=== PATIENT | female | born 1955 | race Caucasian/White ===

== ENCOUNTER 2021-02-16 12:48 | Outpatient (REF) | payer MEDICARE, MEDICAID, SELFPAY ==
--- NOTE | ~2021-02-16 | XR_ITS ---
EXAMINATION: BILATERAL ANKLE X-RAY CLINICAL INFORMATION: Pain COMPARISON: None TECHNIQUE: 3 views of each ankle FINDINGS: Right: Bone alignment is normal. No fracture or dislocation is seen. The ankle mortise is normal. There is a small plantar calcaneal spur. There are soft tissue vascular calcifications. Left: Bone alignment is normal. No fracture or dislocation is seen. The ankle mortise is normal. There are calcaneal spurs. There are degenerative changes of the midfoot. XR/XR ankle LT 2V IMPRESSION: Right: Plantar calcaneal spur. Left: Calcaneal spurs and degenerative changes of the midfoot.
--- NOTE | ~2021-02-16 | XR_ITS ---
EXAMINATION: BILATERAL ANKLE X-RAY CLINICAL INFORMATION: Pain COMPARISON: None TECHNIQUE: 3 views of each ankle FINDINGS: Right: Bone alignment is normal. No fracture or dislocation is seen. The ankle mortise is normal. There is a small plantar calcaneal spur. There are soft tissue vascular calcifications. Left: Bone alignment is normal. No fracture or dislocation is seen. The ankle mortise is normal. There are calcaneal spurs. There are degenerative changes of the midfoot. XR/XR ankle RT 2V IMPRESSION: Right: Plantar calcaneal spur. Left: Calcaneal spurs and degenerative changes of the midfoot.
== END 2021-02-16 12:49 | disposition home or self-care (01) ==
LOC: HO.XRAY 12:48
PROVIDERS: PCP Family Medicine; Visit Provider Student in an Organized Health Care Education/Training Program
DX: M25.571 Pain in right ankle and joints of right foot (principal); M25.572 Pain in left ankle and joints of left foot
CPT/HCPCS: 73600; 99212

== ENCOUNTER 2021-06-13 12:49 | Outpatient (RCR) | payer MEDICARE, MEDICAID, SELFPAY | END 2021-11-07 09:26 | disposition home or self-care (01) | LOC: HO.WCC 12:49 | PROVIDERS: PCP Family Medicine; Visit Provider Physician Assistant | DX: E11.622 Type 2 diabetes mellitus with other skin ulcer (principal); L98.492 Non-pressure chronic ulcer of skin of other sites with fat layer exposed | CPT/HCPCS: 17250; 99212; 99213; 99214 ==

== ENCOUNTER → 2022-02-08 10:58 | Outpatient (BNVA) | payer MEDICARE, MEDICAID, SELFPAY | PROVIDERS: PCP Family Medicine; Visit Provider Nurse Practitioner Family | DX: M25.571 Pain in right ankle and joints of right foot (principal); M25.572 Pain in left ankle and joints of left foot; M79.671 Pain in right foot; M79.672 Pain in left foot | CPT/HCPCS: 99212 ==

== ENCOUNTER 2022-06-28 08:08 | Outpatient (RCR) | payer MEDICARE, MEDICAID, SELFPAY ==
--- NOTE | ~2022-06-28 | XR_ITS ---
EXAMINATION: XR FOOT, LEFT CLINICAL INFORMATION: Question osteomyelitis of the 3rd toe. COMPARISON: None. TECHNIQUE: AP, lateral, and oblique views of the left foot. FINDINGS: There is moderate size calcaneal heel enthesophyte. The ankle mortise and subtalar joints are normal. No visible acute fracture or dislocation. There is no periosteal elevation or thickening. No soft tissue gas seen in the 3rd toe. XR/XR foot LT min 3V IMPRESSION: 1. Moderate size calcaneal heel enthesophyte. No visible acute fracture, dislocation or subluxation seen. 2. There is no soft tissue gas seen in the 3rd toe.
== END 2022-10-06 08:00 | disposition home or self-care (01) ==
LOC: HO.WCC 08:08
PROVIDERS: PCP Family Medicine; Visit Provider Surgery
DX: E11.621 Type 2 diabetes mellitus with foot ulcer (principal); L97.522 Non-pressure chronic ulcer of other part of left foot with fat layer exposed; E11.69 Type 2 diabetes mellitus with other specified complication; M86.072 Acute hematogenous osteomyelitis, left ankle and foot; E11.22 Type 2 diabetes mellitus with diabetic chronic kidney disease; I13.0 Hypertensive heart and chronic kidney disease with heart failure and stage 1 through stage 4 chronic kidney disease, or unspecified chronic kidney disease; N18.30 Chronic kidney disease, stage 3 unspecified; I50.9 Heart failure, unspecified; E11.51 Type 2 diabetes mellitus with diabetic peripheral angiopathy without gangrene; L53.9 Erythematous condition, unspecified; Z79.4 Long term (current) use of insulin; Z79.01 Long term (current) use of anticoagulants; Z79.2 Long term (current) use of antibiotics; Z79.899 Other long term (current) drug therapy; Z86.718 Personal history of other venous thrombosis and embolism; Z89.422 Acquired absence of other left toe(s)
CPT/HCPCS: 11042; 73630

== ENCOUNTER 2022-08-01 14:00 | Outpatient (REF) | payer MEDICARE, MEDICAID, SELFPAY ==
--- NOTE | ~2022-08-01 | MR_ITS ---
EXAMINATION: MR FOOT WITHOUT AND WITH CONTRAST, LEFT CLINICAL INFORMATION: Nonhealing wound on the left 3rd toe. COMPARISON: Left foot radiographs dated 07/19/2022. TECHNIQUE: Multisequence MR imaging of the left foot was obtained before and after the IV administration of 10 mL Gadavist contrast on a high-field strength scanner. FINDINGS: There is soft tissue ulceration at the distal aspect of the 3rd toe with adjacent skin thickening, subcutaneous edema, and enhancement, consistent with cellulitis. No organized fluid collection/abscess formation. Within the adjacent 3rd distal phalanx, there is increased T2 and decreased T1 signal with postcontrast marrow enhancement, consistent with acute osteomyelitis. No stress reaction, fracture, or avascular necrosis. Articular cartilage thinning with marginal osteophytes at the 1st metatarsophalangeal joint and hallux sesamoids. Articular cartilage loss with subchondral cystic change and marginal osteophytes at the tarsometatarsal joints. Edema and atrophy within the intrinsic musculature of the foot which can be seen in diabetic patients. The flexor and extensor tendons are intact. The Lisfranc ligament is intact. Dorsal subcutaneous edema. MR/MR foot LT wo/w con IMPRESSION: 1. Soft tissue ulceration and cellulitis at the distal aspect of the 3rd toe with acute osteomyelitis within the adjacent 3rd distal phalanx. No associated abscess formation. 2. Mild osteoarthritis at the 1st metatarsophalangeal joint and hallux sesamoids as well as more moderate osteoarthritis at the tarsometatarsal joints. 3. Edema and atrophy within the intrinsic musculature of the foot which can be seen in diabetic patients.
== END 2022-08-01 14:01 | disposition home or self-care (01) ==
LOC: HO.MRI 14:00
PROVIDERS: Visit Provider Surgery
DX: E11.621 Type 2 diabetes mellitus with foot ulcer (principal); L97.522 Non-pressure chronic ulcer of other part of left foot with fat layer exposed
CPT/HCPCS: 73720; A9585

== ENCOUNTER 2023-03-07 12:45 | Outpatient (RCR) | payer MEDICARE, MEDICAID, SELFPAY ==
--- NOTE | ~2023-03-07 | XR_ITS ---
EXAMINATION: XR FOOT, LEFT CLINICAL INFORMATION: Question osteomyelitis COMPARISON: 04/10/2023 x-ray, 08/01/2022 MRI. TECHNIQUE: AP, lateral, and oblique views of the left foot. FINDINGS: Redemonstration of amputation at the level of the third proximal phalanx mid diaphysis. Plantar calcaneal spur. Advanced degenerative changes most notable in the 1st metatarsophalangeal joint. The 2nd, 4th and 5th toes are flexed, limiting evaluation. XR/XR foot LT min 3V IMPRESSION: Redemonstration of amputation at the level of the third proximal phalanx mid diaphysis. CT scan should be considered for further evaluation if there is clinical concern for osteomyelitis.
== END 2023-07-17 17:00 | disposition home or self-care (01) ==
LOC: HO.WCC 12:45
PROVIDERS: PCP Family Medicine; Visit Provider Physician Assistant
DX: E11.621 Type 2 diabetes mellitus with foot ulcer (principal); L97.522 Non-pressure chronic ulcer of other part of left foot with fat layer exposed; E11.51 Type 2 diabetes mellitus with diabetic peripheral angiopathy without gangrene; E11.69 Type 2 diabetes mellitus with other specified complication; M86.472 Chronic osteomyelitis with draining sinus, left ankle and foot; E11.40 Type 2 diabetes mellitus with diabetic neuropathy, unspecified; E11.22 Type 2 diabetes mellitus with diabetic chronic kidney disease; I12.9 Hypertensive chronic kidney disease with stage 1 through stage 4 chronic kidney disease, or unspecified chronic kidney disease; N18.30 Chronic kidney disease, stage 3 unspecified; Z79.4 Long term (current) use of insulin; Z79.2 Long term (current) use of antibiotics; Z95.0 Presence of cardiac pacemaker; Z89.421 Acquired absence of other right toe(s); Z86.718 Personal history of other venous thrombosis and embolism
CPT/HCPCS: 11042; 11044; 73630; 87070; 87073; 87205; 97597; 99212

== ENCOUNTER 2023-03-19 08:30 | Outpatient (AMB) | payer MEDICARE, MEDICAID, SELFPAY ==
--- NOTE | 2023-03-19 08:33 | A.OFFVIS_ITS ---
Intake Vital Signs 03/19/23 08:34 Height 5 ft 9 in Weight 261 lb 7.492 oz BMI 38.6 BP 126/64 Blood Pressure Location Rt brachial Position Sitting Pulse 79 Pulse Source Pulse Oximeter Temp 97.2 F Temp Source Skin Pulse Oximetry (%) 98 Intake Visit Reasons: OA Intake Note: Pt seen today for OA follow up. 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: No Allergies alcohol Allergy (Severe, Verified 03/19/23 08:37) Anaphylaxis amlodipine Allergy (Intermediate, Verified 03/19/23 08:37) Hives insulin detemir Allergy (Intermediate, Verified 03/19/23 08:37) rash Sulfa (Sulfonamide Antibiotics) Allergy (Unknown, Verified 03/19/23 08:37) hives Medication List - Last Reconciled 03/19/23 by Junior Real MD acetaminophen ER (Tylenol Arthritis Pain) 650 mg PO Q8H PRN albuterol sulfate 90 mcg/actuation (ProAir HFA) 2 puffs inhalation Q6H PRN alprazolam mg PO aspirin 81 mg PO DAILY bupropion HCl 300 mg PO QAM cholecalciferol (vitamin D3) 50 mcg PO DAILY furosemide 40 mg PO BID insulin glargine (Lantus Solostar U-100 Insulin) 40 units subcut BEDTIME insulin lispro (Humalog KwikPen (U-100) Insulin) subcut meclizine 12.5 mg PO BID PRN metoprolol succinate ER 50 mg PO DAILY ondansetron HCl 4 mg PO DAILY pantoprazole 40 mg PO DAILY HPI HPI Comments History of Present Illness Details The patient returns for evaluation of osteoarthritis and peripheral neuropathy. She had been seen about a year ago for her foot and hand pains. She was on Lyrica 75 mg twice a day. Unfortunately she developed a toe infection and dental infections and ended up with endocarditis at the end of the year. This required emergency mitral valve and aortic valve replacement at [facility]. She then spent about a month in rehab. She says she now does some walking slowly with a walker. She has had both 3rd toes amputated at this point. She has no feeling in the feet. She recently had some trimming of the callus on the left foot and required no anesthesia. The Lyrica has been subsequently stopped. She has the VNA in to see her regularly because of the foot wounds. She has known lumbar osteoarthritis and gets occasional right- sided sciatica. She also has some numbness over the fingertips with some paresthesias. The neuropathy is felt due to her longstanding type 2 diabetes. [facility] Medical History (Updated 03/19/23 @ 09:14 by Junior Real MD) Hx of cardiac pacemaker Surgical History (Updated 03/19/23 @ 08:41 by HARPAL Brown) S/P aortic valve and mitral valve replacement Social History Patient Tobacco Use Status: Never used Tobacco e-Cigarette/Vaping Use: Never Used Review of Systems Const Details: She has low stamina but she says the strength is improving. Negative for appetite change, weight change, fever, chills, malaise Card Details: Ankle edema at times. Negative chest pain, palpitations and syncope Resp Details: Negative for SOB, cough and wheezing GI Details: Negative indigestion/heartburn, nausea, abdominal pain, bowel changes, diarrhea, constipation and bloody stool. Endo Details: Recent hemoglobin A1c was below 7, the best she has had in quite a while. Negative for polyuria and polydypsia Dhaval/Lymph Details: Negative for excessive bruising or bleeding. Physical Exam Vital Signs: Last Vital Signs Temp 97.2 F 03/19/23 08:34 Pulse 79 03/19/23 08:34 BP 126/64 03/19/23 08:34 Pulse Ox 98 03/19/23 08:34 BMI result Body Mass Index 38.6 APPEARANCE: Patient in no acute distress ABD: Normal bowel sounds, no organomegaly, masses or tenderness. EXTREMITIES: Trace pedal and ankle edema. There is hyperpigmented skin changes consistent with venous insufficiency. She has a bandage on the left distal foot from the recent callus surgery. That is not removed but none of the areas seem to be tender or red.. NEURO: Oriented and alert x3. Decreased sensation below the mid calf regions. There is also some decreased sensation over the fingertips. No focal weakness. She has great difficulty getting up from a chair however. This could represent some quadriceps weakness or pain inhibiting her standing up. JOINT EXAM:.?? Cervical Spine:.? Full range of motion without pain; no tenderness. Thoracic Spine:.? No scoliosis.? No tenderness on palpation. Lumbar Spine:.? Alignment normal.? Lumbar motion causes pain at a more than 30 degrees. No areas of discrete the tenderness. Chest Wall:.? No tenderness, swelling, increased warmth or erythema. Hands:.? There is mild bony enlargement at the PIP joints but none of these seem to be tender. There may be some decreased sensation over the fingertips in both hands. Wrists:.? Normal pain-free range of motion without tenderness, swelling, increased warmth or erythema. Elbows:. Normal pain-free range of motion without tenderness, swelling, increased warmth or erythema. Shoulders:.?? Full range of motion without pain. She does seem to have some abductor weakness that she attributes to deconditioning. There is mild anterior tenderness. No adenopathy or swelling. Hips:.? Some lumbar pain with extremes of normal range of motion. No groin pain with motion. Hip bursa:.? No tenderness. Knees:.?? There is pain with extremes of flexion or extension as well as some medial compartment tenderness bilaterally. There is mild patellofemoral crepitus but no redness or warmth. No effusions.n Ankles:.? Normal pain-free range of motion without tenderness, swelling, increased warmth or erythema. Feet:.? There is no tenderness in the feet buttock where she has no sensation in the feet. She does have 3rd toe amputations bilaterally. . ? Assessment & Plan Assessment & Plan (1) Peripheral neuropathy: Code(s): G62.9 - Polyneuropathy, unspecified (2) Osteoarthritis of knees, bilateral: Code(s): M17.0 - Bilateral primary osteoarthritis of knee Plan The patient does not seem to have any signs of an active inflammatory arthritis. She has osteoarthritis in the knees. Her difficulty with standing and walking could also be partially caused by deconditioning from her prolonged hospitalization. In the future if after appropriate exercises knee pain becomes a big problem she could be considered for a knee replacement. I think her prominent problem in the feet and hands is due to diabetic peripheral neuropathy. At this stage I am not sure the Lyrica would add much to symptom control as the major problem is that of numbness and weakness. She should continue to try to enhance her physical activity and be careful about acquiring injuries to the skin in the foot region where she has no sensation. At this point I do not think she needs rheumatology follow-up. Coding Level of Care Code Est Pt Level 3 (50204) Diagnoses Peripheral neuropathy G62.9 Osteoarthritis of knees, bilateral M17.0
[2023-03-19 08:34] VITALS: BP 126/64; PULSE 79; TEMP 36.2; O2SAT 98; BMI 38.6
== END 2023-03-19 09:20 | disposition home or self-care (01) ==
PROVIDERS: PCP Family Medicine; Visit Provider Internal Medicine Rheumatology
DX: G62.9 Polyneuropathy, unspecified (principal); M17.0 Bilateral primary osteoarthritis of knee
CPT/HCPCS: 99213

== ENCOUNTER → 2023-03-19 08:30 | Outpatient (BNVA) | payer MEDICARE, MEDICAID, SELFPAY | PROVIDERS: PCP Family Medicine; Visit Provider Internal Medicine Rheumatology | DX: M17.0 Bilateral primary osteoarthritis of knee (principal); E11.42 Type 2 diabetes mellitus with diabetic polyneuropathy; E11.65 Type 2 diabetes mellitus with hyperglycemia; I38 Endocarditis, valve unspecified; Z95.0 Presence of cardiac pacemaker; Z95.2 Presence of prosthetic heart valve; Z89.422 Acquired absence of other left toe(s); Z89.421 Acquired absence of other right toe(s); Z79.4 Long term (current) use of insulin | CPT/HCPCS: 99212 ==

== ENCOUNTER 2023-04-10 13:37 | Emergency (ER) | payer MEDICARE, MEDICAID, SELFPAY ==
--- NOTE | ~2023-04-10 | XR_ITS ---
EXAMINATION: XR FOOT, LEFT CLINICAL INFORMATION: Question osteomyelitis COMPARISON: Prior left foot from 08/01/2022, left foot radiograph from 07/19/2022 TECHNIQUE: AP, lateral, and oblique views of the left foot. FINDINGS: Interval amputation at the level of the third proximal phalanx mid diaphysis. No acute visible fracture or dislocation. Multi joint arthritic changes. Plantar calcaneal heel spur. No cortical erosions, periosteal thickening, or soft tissue gas to suggest osteomyelitis. XR/XR foot LT min 3V IMPRESSION: 1. Interval amputation at the level of the third proximal phalanx mid diaphysis. 2. No acute visible fracture or dislocation. 3. Multi joint arthritic changes. 4. Plantar calcaneal heel spur. 5. No cortical erosions, periosteal thickening, or soft tissue gas to suggest osteomyelitis. If high clinical concern for osteomyelitis consider further evaluation with MRI.
[2023-04-10 13:43] VITALS: BP 141/53; PULSE 65; RESP 20; TEMP 36.6; O2SAT 97; BMI 38.4
--- NOTE | 2023-04-10 13:43 | ED.GENADULT ---
HPI - General Adult General Chief complaint: Skin/Abscess/Foreign Body Stated complaint: Infected toe L foot Time Seen by Provider: 04/10/23 14:21 Source: patient Mode of arrival: ambulatory Limitations: no limitations History of Present Illness HPI narrative: female with multiple medical problems including diabetes, toe amputations and renal failure who presents 4 days after going to [facility] wound clinic for toe debriedement. She was hoping that the swelling would have gone down by now Onset (ago): week(s) (4) Related Data Home Medications Medication Instructions Recorded Confirmed albuterol sulfate 90 mcg/actuation 2 puff inhalation Q6H PRN 02/16/21 03/19/23 aerosol inhaler (ProAir HFA) bupropion HCl 300 mg 24 hr tablet, 300 mg PO QAM 02/16/21 03/19/23 extended release furosemide 40 mg tablet 40 mg PO BID 02/08/22 03/19/23 alprazolam 0.5 mg tablet mg PO 03/19/23 03/19/23 aspirin 81 mg tablet,delayed 81 mg PO DAILY 03/19/23 03/19/23 release cholecalciferol (vitamin D3) 50 50 mcg PO DAILY 03/19/23 03/19/23 mcg (2,000 unit) capsule insulin glargine 100 unit/mL (3 40 unit subcut BEDTIME 03/19/23 03/19/23 mL) subcutaneous pen (Lantus Solostar U-100 Insulin) insulin lispro 100 unit/mL subcut 03/19/23 03/19/23 subcutaneous pen (Humalog KwikPen (U-100) Insulin) meclizine 12.5 mg tablet 12.5 mg PO BID PRN 03/19/23 03/19/23 metoprolol succinate 50 mg 50 mg PO DAILY 03/19/23 03/19/23 tablet,extended release 24 hr ondansetron HCl 4 mg tablet 4 mg PO DAILY 03/19/23 03/19/23 pantoprazole 40 mg tablet,delayed 40 mg PO DAILY 03/19/23 03/19/23 release Previous Rx's Medication Instructions Recorded acetaminophen 650 mg 650 mg PO Q8H PRN pain #90 tabs 02/16/21 tablet,extended release (Tylenol Arthritis Pain) Allergies Allergy/AdvReac Type Severity Reaction Status Date / Time alcohol Allergy Severe Anaphylaxis Verified 03/19/23 08:37 amlodipine Allergy Intermediate Hives Verified 03/19/23 08:37 insulin detemir Allergy Intermediate rash Verified 03/19/23 08:37 Sulfa (Sulfonamide Allergy Unknown hives Verified 03/19/23 08:37 Antibiotics) Review of Systems Review of Systems: Yes all other systems are reviewed and are negative [facility] Past Medical History Medical History Hx of cardiac pacemaker Surgical History S/P aortic valve and mitral valve replacement Social History Social History Patient Tobacco Use Status: Never used Tobacco e-Cigarette/Vaping Use: Never Used Advance Directives: No Advance Directives Information Provided: No Physical Exam ED Vital Signs: Vital Signs - 24 hr 04/10/23 13:43 Temperature 97.9 F Pulse Rate 65 Respiratory Rate 20 Blood Pressure 141/53 H Pulse Oximetry 97 Oxygen Delivery Method Room Air BMI result Body Mass Index 38.4 Const Other: obese unkept female in no Orientation/consciousness: oriented to person and patient oriented x3 Limitations: no limitations HENMT Head: Yes normal to inspection Ears: external ears normal General nose exam: Normal external nose present Mouth: Normal oral and palatal mucosa present and oropharynx normal Throat: Yes posterior oropharynx normal Eyes General: appearance normal, both eyes and all related structures Neck Neck: Yes normal visual inspection Chest Chest palpation & inspection: normal inspection of the chest Resp Auscultation: clear to auscultation bilaterally Cardio Jugular venous distension: no JVD Rate: regular rate Rhythm: regular rhythm Heart sounds: S1 normal heart sound present and S2 normal heart sound present GI Inspection: Yes normal to inspection Palpation (GI): Soft to palpation, nontender and No hepatosplenomegaly present Auscultation: normal bowel sounds General: Yes no CVA tenderness Back/Spine/Pelvis Back: no CVA tenderness Skin General skin exam: no rashes or lesions noted Neuro General: oriented to person and patient oriented x3 Cranial nerves: Yes CN's II-XII intact bilaterally Motor exam (neuro): 5/5 motor strength present throughout Extrem Other: toe not erythema, no drainage does not look acutely infected Psych Appearance: grossly normal Course Course Course Narrative: This is a rapid medical exam: Additional HPI, ROS, PE not included below will be deferred to primary provider. Patient is a 67-year-old female with history of T2DM, osteoarthritis, left toe amputation presenting to the emergency department with complaint of left 2nd toe redness and swelling for weeks, denies pain. History of left 3rd toe partial amputation. 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 Has been followed by the wound clinic. has been to [facility] for same 4 times since November. Denies recent fevers. States she has been retaining fluid, was taken off her diuretic due to stage 3 kidney disease. Plan: labs, x-ray Reevaluation(s) Reevaluation #1: does not look infected will have patient follow up with the wound clinic Time: 16:37 Medical Decision Making Differential Diagnosis Differential Diagnoses: The differential diagnosis associated with the presentation includes (osteomyelitis, cellulitis, ischemic foot were all considered) Admission/Observation Consideration of admission/observation: Escalation of care including admission/observation considered (upon arrival patient was considered for admission) Lab Data MDM Lab Attestation statement: I reviewed the patient's lab results. (no elevated WBC, baseline renal insufficiency) 04/10/23 14:47 04/10/23 14:47 Labs: Lab Results 04/10/23 04/10/23 04/10/23 Range/Units 14:47 14:47 14:47 WBC 8.2 (4.8-10.8) X10*3/uL RBC 3.96 L (4.20-5.50) X10*6/uL Hgb 11.1 L (12.0-16.0) g/dl Hct 34.9 L (37.0-47.0) % MCV 88.1 (80.0-98.0) fL MCH 28.0 (27.0-33.0) pg MCHC 31.8 (31.0-35.0) g/dl RDW 16.8 H (11.0-16.0) % Plt Count 180 (160-400) X10*3/uL MPV 9.0 L (9.4-12.3) fL Immature Gran % (Auto) 0.6 H (0.0-0.4) % Neut % (Auto) 68.7 (45-73) % Lymph % (Auto) 20.7 (20-40) % Bates % (Auto) 6.3 (2-11) % Eos % (Auto) 2.6 (0-4) % Baso % (Auto) 1.1 (0-2) % Lymph # (Auto) 1.7 (1.2-4.9) X10*3/uL Bates # (Auto) 0.5 (0.1-1.2) X10*3/uL Eos # (Auto) 0.2 (0.0-0.4) X10*3/uL Baso # (Auto) 0.1 (0.0-0.2) X10*3/uL Abs Immat Gran (auto) 0.05 H (0.00-0.03) X10*3/uL Absolute Neuts (auto) 5.6 (2.0-8.3) x10*3/uL Absolute Nucleated RBC 0.000 (0.0-0.012) X10*3/uL Nucleated RBC % (auto) 0.0 (0.0-0.2) /100WBC ESR 27 H (0-20) MM/HR Sodium 144 (135-145) mmol/L Potassium 4.4 (3.3-5.1) mmol/L Chloride 112 H (96-108) mmol/L Carbon Dioxide 23 (22-29) mmol/L Anion Gap 13 (12-20) BUN 32 H (9-16) mg/dL Creatinine 2.06 H (0.5-1.4) mg/dL Estim Creat Clear Calc 36.3 Estimated GFR 24 Random Glucose 204 H (60-115) mg/dL Calcium 9.5 (8.4-10.2) mg/dL Total Bilirubin 0.5 (0.0-1.0) mg/dL AST 33 H (5-31) U/L ALT 40 H (0-31) U/L Alkaline Phosphatase 84 (39-117) U/L C-Reactive Protein 0.72 H (< or = 0.50) mg/dL Total Protein 6.7 (6.5-8.0) g/dL Albumin 3.7 (3.5-5.0) g/dL Independent Interpretation I performed an independent interpretation of an: Plain X-Ray (no lytic lesions of the toe) Radiology Impression Discussion of test interpretation with radiology: I have reviewed the radiologist's reading. (no destruction and I agree) External Record Review External record reviewed: Outpatient record Tests considered The following testing was considered but not selected: MRI of toe considered but no evidence of osteo Prescription Management I considered prescription management with: Antibiotic (no evidence of cellulitis will not start abx) Chronic Conditions Patient?s care impacted by: Diabetes and Hypertension Discharge Plan Discharge Clinical Impression: Diabetic foot Patient Disposition: Home, Self-Care Instructions: Diabetes and Your Skin (ED) Prescriptions: No Action bupropion HCl 300 mg tablet extended release 24 hr 300 mg PO QAM albuterol sulfate [ProAir HFA] 90 mcg/actuation HFA aerosol inhaler 2 puff inhalation Q6H PRN acetaminophen [Tylenol Arthritis Pain] 650 mg tablet extended release 650 mg PO Q8H PRN (Reason: pain) Qty: 90 3RF furosemide 40 mg tablet 40 mg PO BID metoprolol succinate 50 mg tablet extended release 24 hr 50 mg PO DAILY pantoprazole 40 mg tablet,delayed release (DR/EC) 40 mg PO DAILY aspirin 81 mg tablet,delayed release (DR/EC) 81 mg PO DAILY ondansetron HCl 4 mg tablet 4 mg PO DAILY cholecalciferol (vitamin D3) 50 mcg (2,000 unit) capsule 50 mcg PO DAILY alprazolam 0.5 mg tablet PO insulin glargine [Lantus Solostar U-100 Insulin] 100 unit/mL (3 mL) insulin pen 40 unit subcut BEDTIME insulin lispro [Humalog KwikPen Insulin] 100 unit/mL insulin pen subcut meclizine 12.5 mg tablet 12.5 mg PO BID PRN Referrals: [facility] Wound Care Management [Provider Group] - 5 days
[2023-04-10 14:51] LABS: MANUAL DIFF FLAG NO
[2023-04-10 14:53] LABS: Basophils Absolute Auto 0.1 X10*3/uL (0.0-0.2); Basophils Percent Auto 1.1 % (0-2); Eosinophils Absolute Auto 0.2 X10*3/uL (0.0-0.4); Eosinophils Percent Auto 2.6 % (0-4); Hematocrit 34.9 % (37.0-47.0); Hemoglobin 11.1 g/dl (12.0-16.0); Imm Gran Abs Auto 0.05 X10*3/uL (0.00-0.03); Imm Gran Pct Auto 0.6 % (0.0-0.4); Lymphocytes Absolute Auto 1.7 X10*3/uL (1.2-4.9); Lymphocytes Percent Auto 20.7 % (20-40); Mean Corpuscular HGB Conc 31.8 g/dl (31.0-35.0); Mean Corpuscular Volume 88.1 fL (80.0-98.0); Monocytes Absolute Auto 0.5 X10*3/uL (0.1-1.2); Monocytes Percent Auto 6.3 % (2-11); Neutrophils Absolute Auto 5.6 x10*3/uL (2.0-8.3); Neutrophils Percent Auto 68.7 % (45-73); Platelet Count 180 X10*3/uL (160-400); Red Blood Count 3.96 X10*6/uL (4.20-5.50); Red Cell Distribution Width 16.8 % (11.0-16.0); White Blood Count 8.2 X10*3/uL (4.8-10.8)
[2023-04-10 15:07] LABS: Alanine Aminotransferase 40 U/L (0-31); Albumin Level 3.7 g/dL (3.5-5.0); Alkaline Phosphatase 84 U/L (39-117); Anion Gap 13 (12-20); Aspartate Amino Transferase 33 U/L (5-31); Bilirubin Total 0.5 mg/dL (0.0-1.0); Blood Urea Nitrogen 32 mg/dL (9-16); C Reactive Protein 0.72 mg/dL (< or = 0.50); Calcium 9.5 mg/dL (8.4-10.2); Carbon Dioxide 23 mmol/L (22-29); Chloride 112 mmol/L (96-108); Creatinine Clr Calc Pharmacy 36.3; Estimated Glomerular Filt Rate 24; Glucose Random 204 mg/dL (60-115); Potassium 4.4 mmol/L (3.3-5.1); Sodium 144 mmol/L (135-145); Total Protein 6.7 g/dL (6.5-8.0)
[2023-04-10 15:39] LABS: Erythrocyte Sedimentation Rate 27 MM/HR (0-20)
== END 2023-04-10 16:58 | disposition home or self-care (01) ==
PROVIDERS: Registered Nurse Emergency; Emergency Provider Emergency Medicine; PCP Family Medicine
DX: E11.621 Type 2 diabetes mellitus with foot ulcer (principal); M79.672 Pain in left foot; Z79.899 Other long term (current) drug therapy; Z79.4 Long term (current) use of insulin
CPT/HCPCS: 36415; 73630; 80053; 85025; 85652; 86140; 99282; 99283

== ENCOUNTER 2023-04-13 13:15 | Outpatient (AMB) | payer MEDICARE, MEDICAID, SELFPAY ==
--- NOTE | 2023-04-13 13:16 | A.OFFVIS_ITS ---
Intake Vital Signs 04/13/23 13:30 Height 5 ft 9 in Weight 269 lb BMI 39.7 BP 130/90 H Blood Pressure Location Rt brachial Position Sitting Pulse 72 Pulse Source Pulse Oximeter Pulse Oximetry (%) 95 Intake Visit Reasons: ref.wound care,Dorsal second toe ulcer Allergies alcohol Allergy (Severe, Verified 04/13/23 13:31) Anaphylaxis amlodipine Allergy (Intermediate, Verified 04/13/23 13:31) Hives insulin detemir Allergy (Intermediate, Verified 04/13/23 13:31) rash Sulfa (Sulfonamide Antibiotics) Allergy (Unknown, Verified 04/13/23 13:31) hives HPI ref.wound care,Dorsal second toe ulcer HPI Details She is referral from [facility]ound Clinic for left second toe callus/ulcer at end of toe. She has had nonhealing ulcer on tip of toe since October of this year. She went to [facility] November 2022 and was hospitalized for cellulitis and received four days of IV antibiotics. She continues to see Wound Clinic and had MRI July 2022 which showed no signs of OM second toe. She reports h/o endocarditis aoritc . She also has right venous stasis changes. She reports MRI [facility] January she reports no OM. She has no fever or chills. She is looking into off loading shoes for toe. [facility] Medical History (Updated 04/13/23 @ 16:23 by Ethel Castillo MD) Foot ulcer Hx of cardiac pacemaker Surgical History S/P aortic valve and mitral valve replacement Social History Patient Tobacco Use Status: Never used Tobacco e-Cigarette/Vaping Use: Never Used Review of Systems Const All systems reviewed & are unremarkable except as noted in HPI and below Physical Exam Vital Signs: Last Vital Signs Pulse 72 04/13/23 13:30 BP 130/90 H 04/13/23 13:30 Pulse Ox 95 04/13/23 13:30 BMI result Body Mass Index 39.7 Const Other: General: cooperative Orientation/consciousness: patient oriented x3 HEENT Head: Yes normal to inspection Mouth: Normal oral and palatal mucosa present Eyes General: appearance normal, both eyes and all related structures Pupils: Equal, round and reactive pupils present Resp Effort & Inspection: normal respiratory effort Cardio Rate: regular rate Rhythm: regular rhythm GI Palpation (GI): Soft to palpation and nontender General: Yes no CVA tenderness Back/Spine/Pelvis Back: no CVA tenderness Skin General skin exam: no rashes or lesions noted Neuro General: patient oriented x3 Cranial nerves: Yes CN's II-XII intact bilaterally and Yes Equal, round and reactive pupils present Extrem Other: distal second toe tip callus,patient reported purulence in past from area but dont see today General: Yes normal to inspection Psych Appearance: grossly normal Assessment & Plan Assessment & Plan (1) History of aortic valve replacement: Comment: due to endocarditis 08/2022 Code(s): Z95.2 - Presence of prosthetic heart valve (2) Foot ulcer: Comment: She has ESR only 27 when seen in ER. She has negative MRI per her report for OM so doesnt sound like OM,acute or chronic is at play here. Maybe non healing due to ischemia,trauma,pressure Code(s): L97.509 - Non-pressure chronic ulcer of other part of unspecified foot with unspecified severity Plan: No further treatment with antibiotics at this time. If purulence or redness consider recheck MRI. Coding Level of Care Code New Pt Level 3 (72706) Diagnoses History of aortic valve replacement Z95.2 Foot ulcer L97.509
[2023-04-13 13:30] VITALS: BP 130/90; PULSE 72; O2SAT 95; BMI 39.7
== END 2023-04-13 14:47 | disposition home or self-care (01) ==
LOC: HO.HID 13:15
PROVIDERS: PCP Family Medicine; Visit Provider Internal Medicine
DX: Z95.2 Presence of prosthetic heart valve (principal); L97.509 Non-pressure chronic ulcer of other part of unspecified foot with unspecified severity
CPT/HCPCS: 99203

== ENCOUNTER → 2023-04-13 13:15 | Outpatient (BNVA) | payer MEDICARE, MEDICAID, SELFPAY | PROVIDERS: PCP Family Medicine; Visit Provider Internal Medicine | DX: L97.529 Non-pressure chronic ulcer of other part of left foot with unspecified severity (principal); L84 Corns and callosities; Z95.2 Presence of prosthetic heart valve | CPT/HCPCS: 99202 ==

== ENCOUNTER 2023-06-20 14:52 | Outpatient (AMB) | payer MEDICARE, MEDICAID, SELFPAY ==
--- NOTE | 2023-06-20 14:54 | A.OFFVIS_ITS ---
Intake Vital Signs 3 06/20/23 14:55 Height 5 ft 9 in Weight 270 lb BMI 39.9 BP 170/72 H Blood Pressure Location Lt brachial Position Sitting Pulse 66 Pulse Source Pulse Oximeter Temp 97.4 F Temp Source Oral Pulse Oximetry (%) 99 Intake Visit Reasons: ref.wound care,osteomyelitis,MRI done [facility] Allergies alcohol Allergy (Severe, Verified 04/13/23 13:31) Anaphylaxis amlodipine Allergy (Intermediate, Verified 04/13/23 13:31) Hives insulin detemir Allergy (Intermediate, Verified 04/13/23 13:31) rash Sulfa (Sulfonamide Antibiotics) Allergy (Unknown, Verified 04/13/23 13:31) hives HPI ref.wound care,osteomyelitis,MRI done [facility] 2 HPI0 Details I had seen her in April. She has still had nonhealing of wound left second toe. She has MRI done now per Wound Clinic which showed osteomyelitis distal second toe. She has no specific culture. She has renal insufficiency. She has no fever or chills. [facility] Medical History Osteomyelitis Foot ulcer Hx of cardiac pacemaker Surgical History S/P aortic valve and mitral valve replacement Social History Patient Tobacco Use Status: Never used Tobacco e-Cigarette/Vaping Use: Never Used Review of Systems Const All systems reviewed & are unremarkable except as noted in HPI and below Physical Exam Vital Signs: Last Vital Signs Temp 97.4 F 06/20/23 14:55 Pulse 66 06/20/23 14:55 BP 170/72 H 06/20/23 14:55 Pulse Ox 99 06/20/23 14:55 BMI result Body Mass Index 39.9 Const Other: General: cooperative Orientation/consciousness: patient oriented x3 HEENT Head: Yes normal to inspection Mouth: Normal oral and palatal mucosa present Eyes General: appearance normal, both eyes and all related structures Pupils: Equal, round and reactive pupils present Resp Effort & Inspection: normal respiratory effort Cardio Rate: regular rate Rhythm: regular rhythm GI Palpation (GI): Soft to palpation and nontender General: Yes no CVA tenderness Back/Spine/Pelvis Back: no CVA tenderness Skin General skin exam: no rashes or lesions noted Neuro General: patient oriented x3 Cranial nerves: Yes CN's II-XII intact bilaterally and Yes Equal, round and reactive pupils present Extrem Other: open area toe neuropathy General: Yes normal to inspection Psych Appearance: grossly normal Assessment & Plan Assessment & Plan (1) Osteomyelitis: Comment: She has had nonhealing wound with negative radiographic and no blood evidence of infection in past Now she has evidence of osteomyelitis,no organism but possible gram positive such as MRSA. Code(s): M86.9 - Osteomyelitis, unspecified Plan: Would check creatinine. Would also use central line. Would give six weeks renal dose adjusted Daptomycin ,about 500 mg every 48 hours. See in two weeks Weekly creatinine and CK. Orders: Orders 2 Basic Metabolic Panel 06/20/23 M86.9 - Osteomyelitis, unspecified IR cvc insert central tunnel 06/20/23 M86.9 - Osteomyelitis, unspecified CK, Total+Isoenzymes, Serum 1 Week M86.9 - Osteomyelitis, unspecified CK, Total+Isoenzymes, Serum 3 Weeks M86.9 - Osteomyelitis, unspecified CK, Total+Isoenzymes, Serum 2 Weeks M86.9 - Osteomyelitis, unspecified Creatinine Today M86.9 - Osteomyelitis, unspecified Creatinine 3 Weeks M86.9 - Osteomyelitis, unspecified Complete Blood Count Auto Diff 06/20/23 M86.9 - Osteomyelitis, unspecified Liver Panel 06/20/23 M86.9 - Osteomyelitis, unspecified CK, Total+Isoenzymes, Serum 06/20/23 M86.9 - Osteomyelitis, unspecified Creatinine 1 Week M86.9 - Osteomyelitis, unspecified Medications: New 2 daptomycin administer over 30 mins 500 mg IV .q48 42 days 0RF Coding Level of Care Code Est Pt Level 3 (23944) Diagnoses Osteomyelitis M86.9
[2023-06-20 14:55] VITALS: BP 170/72; PULSE 66; TEMP 36.3; O2SAT 99; BMI 39.9
== END 2023-06-20 15:26 | disposition home or self-care (01) ==
PROVIDERS: PCP Family Medicine; Visit Provider Internal Medicine
DX: M86.9 Osteomyelitis, unspecified (principal)
CPT/HCPCS: 99213

== ENCOUNTER 2023-06-20 14:52 | Outpatient (REF) | payer MEDICARE, MEDICAID, SELFPAY ==
[2023-06-20 15:55] LABS: MANUAL DIFF FLAG NO
[2023-06-20 16:02] LABS: Basophils Absolute Auto 0.1 X10*3/uL (0.0-0.2); Eosinophils Absolute Auto 0.3 X10*3/uL (0.0-0.4); Eosinophils Percent Auto 3.4 % (0-4); Hemoglobin 11.8 g/dl (12.0-16.0); Imm Gran Abs Auto 0.03 X10*3/uL (0.00-0.03); Imm Gran Pct Auto 0.3 % (0.0-0.4); Lymphocytes Absolute Auto 2.5 X10*3/uL (1.2-4.9); Lymphocytes Percent Auto 26.2 % (20-40); Mean Corpuscular HGB Conc 31.9 g/dl (31.0-35.0); Mean Corpuscular Hemoglobin 28.6 pg (27.0-33.0); Mean Corpuscular Volume 89.8 fL (80.0-98.0); Monocytes Absolute Auto 0.6 X10*3/uL (0.1-1.2); Monocytes Percent Auto 5.9 % (2-11); Neutrophils Percent Auto 63.2 % (45-73); Platelet Count 208 X10*3/uL (160-400); Red Blood Count 4.12 X10*6/uL (4.20-5.50); Red Cell Distribution Width 14.7 % (11.0-16.0); White Blood Count 9.5 X10*3/uL (4.8-10.8)
[2023-06-20 16:52] LABS: Alanine Aminotransferase 24 U/L (0-31); Albumin Level 3.8 g/dL (3.5-5.0); Alkaline Phosphatase 93 U/L (39-117); Anion Gap 13 (12-20); Aspartate Amino Transferase 25 U/L (5-31); Bilirubin Direct 0.2 mg/dL (0.0-0.5); Bilirubin Total 0.5 mg/dL (0.0-1.0); Blood Urea Nitrogen 33 mg/dL (9-16); Calcium 9.2 mg/dL (8.4-10.2); Carbon Dioxide 25 mmol/L (22-29); Chloride 109 mmol/L (96-108); Estimated Glomerular Filt Rate 24; Glucose Random 180 mg/dL (60-115); Potassium 4.5 mmol/L (3.3-5.1); Sodium 142 mmol/L (135-145); Total Protein 7.1 g/dL (6.5-8.0)
[2023-06-25 12:08] LABS: CK-BB None Detected (None Detected); CK-MB 0 % (<5); CK-MM 100 % (95-100); Creatine Kinase,Total,Serum 60 U/L (29-143)
== END 2023-06-20 14:53 | disposition home or self-care (01) ==
LOC: HO.LAB 14:52
PROVIDERS: PCP Family Medicine; Visit Provider Internal Medicine
DX: M86.9 Osteomyelitis, unspecified (principal); S91.105A Unspecified open wound of left lesser toe(s) without damage to nail, initial encounter; X58.XXXA Exposure to other specified factors, initial encounter; Y93.9 Activity, unspecified; Y92.9 Unspecified place or not applicable; Y99.9 Unspecified external cause status
CPT/HCPCS: 36415; 80048; 80076; 82552; 85025; 99212

== ENCOUNTER 2023-12-04 10:41 | Outpatient (RCR) | payer MEDICARE, MEDICAID, SELFPAY | END 2024-01-10 12:04 | disposition home or self-care (01) | LOC: HO.WCC 10:41 | PROVIDERS: PCP Family Medicine; Visit Provider Physician Assistant | DX: E11.621 Type 2 diabetes mellitus with foot ulcer (principal); L97.519 Non-pressure chronic ulcer of other part of right foot with unspecified severity; E11.51 Type 2 diabetes mellitus with diabetic peripheral angiopathy without gangrene; E11.40 Type 2 diabetes mellitus with diabetic neuropathy, unspecified; E11.22 Type 2 diabetes mellitus with diabetic chronic kidney disease; I12.9 Hypertensive chronic kidney disease with stage 1 through stage 4 chronic kidney disease, or unspecified chronic kidney disease; N18.30 Chronic kidney disease, stage 3 unspecified; Z79.4 Long term (current) use of insulin; L84 Corns and callosities; Z89.421 Acquired absence of other right toe(s); Z95.0 Presence of cardiac pacemaker | CPT/HCPCS: 99212 ==

== ENCOUNTER 2024-06-26 14:15 | Inpatient (IN) | payer MEDICARE, SELFPAY ==
--- NOTE | ~2024-06-26 | XR_ITS ---
EXAMINATION: XR FOOT, RIGHT CLINICAL INFORMATION: Right toe wound. COMPARISON: Right ankle radiographs dated 02/16/2021. TECHNIQUE: AP, lateral, and oblique views of the right foot. FINDINGS: 1st metatarsophalangeal hallux valgus angulation with lateral subluxation of the hallux sesamoids. 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 Mild degenerative spurring along the dorsal midfoot. No acute fracture. Plantar and dorsal calcaneal spurs. Probable soft tissue wound overlying the 1st interphalangeal joint without radiopaque calcification or abnormal soft tissue calcification. Small focal cortical erosion within the 1st proximal phalangeal head, in the region of the wound, measuring up to 0.3 cm, concerning for early osteomyelitis. XR/XR foot RT 2V IMPRESSION: 1. Probable soft tissue wound overlying the 1st interphalangeal joint, without radiopaque calcification or abnormal soft tissue calcification. Small focal cortical erosion within the 1st proximal phalangeal head, in the region of the wound, concerning for early osteomyelitis. 2. 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 Electronically signed by: Joaquin Wall MD 06/26/2024 05:12 PM [facility] [place]
--- NOTE | ~2024-06-26 | CT_ITS ---
EXAMINATION: CT FOOT WITHOUT CONTRAST, RIGHT CLINICAL INFORMATION: Osteomyelitis. COMPARISON: X-ray of the right foot, 06/26/2024. TECHNIQUE: CT scan of the right foot is performed with reconstruction imaging performed at the acquisition workstation. This CT examination was performed using dose optimization techniques as appropriate, variously including the following: *Automated exposure control *Adjustment of mA and/or kV according to patient size (this includes techniques or standardized protocols for targeted exams where dose is matched to indication/reason for exam; i.e. extremities or head) *Use of iterative reconstruction technique DLP: 162 mGy-cm FINDINGS: Suspect small superficial defect/ulceration along the dorsal aspect of the IP joint of the great toe. Deep to this suspected ulceration is a small cortical lucency suspicious for erosion corresponding to the lucency noted on radiographs. This lucency is small measuring approximately 3 mm. Possible minimal edema and/or cellulitis in the surrounding soft tissues. There is generalized increased density in the subcutaneous soft tissues in the great toe compatible with edema and/or cellulitis. ADDITIONAL FINDINGS: There is lwyt-xx-rcnlkirr osteoarthritis of the 2nd and 3rd tarsometatarsal joints. There is a prominent hallux valgus with jxxb-lc-ylgnmzwk osteoarthritis of the joint. There is associated lateral subluxation of the sesamoids. There is myky-tz-tjmbsoiy osteoarthritis of the 1st metatarsophalangeal joint complex. There are prominent flexion deformities at the PIP joints of the 2nd through 5th digits. There is chondrocalcinosis of the talocrural joint. 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 CT/CT foot RT wo IV con IMPRESSION: 1. Suspect small superficial defect/ulceration along the dorsal aspect of the IP joint of the great toe. A small cortical lucency deep to this suspected ulceration is suspicious for erosion corresponding to the medial lucency noted on radiographs. This remains suspicious for osteomyelitis in the appropriate clinical scenario and if indeed there is an overlying ulcer. Possible minimal edema and/or cellulitis in the surrounding soft tissues. 2. Generalized increased density in the subcutaneous soft tissues in the great toe compatible with edema and/or cellulitis. 3. Prominent hallux valgus with ethu-kn-sqikfebk osteoarthritis of the joint. 4. Rocr-rf-czccmubr osteoarthritis of the 2nd and 3rd tarsometatarsal joints. 5. Prominent flexion deformities at the PIP joints of the 2nd through 5th digits. 6. Chondrocalcinosis of the talocrural joint. 7. Atrophy and fatty infiltration throughout the muscles of the foot which can be seen with denervation myositis. Electronically signed by: Sterling Gunn MD 07/01/2024 11:25 AM [facility]
--- NOTE | ~2024-06-26 | IR_ITS ---
CLINICAL HISTORY: IV antibiotics. PROCEDURES: 1. Real-time ultrasound guided access into the right internal jugular vein after documentation of selective vessel patency, and permanent imaging storing in the patient records. 2. Placement of a 6 Fr, 26 cm tunneled, single lumen power injectable [place] CLINICIAN: Sai Wild PA-C MEDICATIONS: -Lidocaine 1% 10 ml, SQ. -Additional details, please see nursing flowsheet. Complications: None. Estimated blood loss: <5 ml Specimens: None. Contrast: None. Fluoroscopy time: 0.8 min PROCEDURE NOTE: The procedure, risks, benefits, and alternatives were carefully explained to the patient and written informed consent was obtained. The patient was placed supine on the fluoroscopy table. A timeout was performed. The right neck and chest was prepped and draped in usual sterile fashion. Local anesthesia was administered to the right neck access site with lidocaine. Under ultrasound guidance, the right internal jugular vein was accessed with a 5 fr micropuncture set. A permanent ultrasound picture was saved. A peel-away sheath was advanced over the wire. The catheter was measured and cut to length. Next, subcutaneous lidocaine was administered to the chest. Using blunt dissection, a subcutaneous tunnel was created that connects from the upper chest to the venotomy site. The catheter was pulled through the tunnel. The catheter was advanced through the sheath, which was subsequent peeled away. The catheter was tested, flushed, and sutured to the skin with its tip in the cavoatrial junction. The venotomy site was closed with surgical glue. A dry sterile dressing was applied to the chest and the venotomy site. A permanent chest fluoroscopic image was saved demonstrating the catheter tip in the cavoatrial junction. The patient was stable after the procedure was transferred back to the floor. IR/IR us guide venous access IMPRESSION: Placement of a tunneled single lumen [place] catheter PLAN: -The catheter may be used immediately. This procedure was performed by Sai Wild PA-C, and supervised by Dr. Marcus Electronically signed by: Reno Snyder MD 07/03/2024 03:04 PM [facility]
--- NOTE | ~2024-06-26 | IR_ITS ---
CLINICAL HISTORY: IV antibiotics. PROCEDURES: 1. Real-time ultrasound guided access into the right internal jugular vein after documentation of selective vessel patency, and permanent imaging storing in the patient records. 2. Placement of a 6 Fr, 26 cm tunneled, single lumen power injectable [place] CLINICIAN: Sai Wild PA-C MEDICATIONS: -Lidocaine 1% 10 ml, SQ. -Additional details, please see nursing flowsheet. Complications: None. Estimated blood loss: <5 ml Specimens: None. Contrast: None. Fluoroscopy time: 0.8 min PROCEDURE NOTE: The procedure, risks, benefits, and alternatives were carefully explained to the patient and written informed consent was obtained. The patient was placed supine on the fluoroscopy table. A timeout was performed. The right neck and chest was prepped and draped in usual sterile fashion. Local anesthesia was administered to the right neck access site with lidocaine. Under ultrasound guidance, the right internal jugular vein was accessed with a 5 fr micropuncture set. A permanent ultrasound picture was saved. A peel-away sheath was advanced over the wire. The catheter was measured and cut to length. Next, subcutaneous lidocaine was administered to the chest. Using blunt dissection, a subcutaneous tunnel was created that connects from the upper chest to the venotomy site. The catheter was pulled through the tunnel. The catheter was advanced through the sheath, which was subsequent peeled away. The catheter was tested, flushed, and sutured to the skin with its tip in the cavoatrial junction. The venotomy site was closed with surgical glue. A dry sterile dressing was applied to the chest and the venotomy site. A permanent chest fluoroscopic image was saved demonstrating the catheter tip in the cavoatrial junction. The patient was stable after the procedure was transferred back to the floor. IR/IR cvc insert central tunnel IMPRESSION: Placement of a tunneled single lumen [place] catheter PLAN: -The catheter may be used immediately. This procedure was performed by Sai Wild PA-C, and supervised by Dr. Marcus Electronically signed by: Reno Snyder MD 07/03/2024 03:04 PM [facility]
[2024-06-26 14:53] VITALS: BP 165/71; PULSE 103; RESP 20; TEMP 36.3; O2SAT 100; BMI 38.7
[2024-06-26 15:50] LABS: MANUAL DIFF FLAG NO
[2024-06-26 15:51] LABS: Basophils Absolute Auto 0.1 X10*3/uL (0.0-0.2); Basophils Percent Auto 0.8 % (0-2); Eosinophils Absolute Auto 0.1 X10*3/uL (0.0-0.4); Eosinophils Percent Auto 1.1 % (0-4); Hematocrit 41.9 % (37.0-47.0); Hemoglobin 13.9 g/dl (12.0-16.0); Imm Gran Abs Auto 0.03 X10*3/uL (0.00-0.03); Imm Gran Pct Auto 0.3 % (0.0-0.4); Lymphocytes Absolute Auto 2.4 X10*3/uL (1.2-4.9); Lymphocytes Percent Auto 24.4 % (20-40); Mean Corpuscular HGB Conc 33.2 g/dl (31.0-35.0); Mean Corpuscular Hemoglobin 30.5 pg (27.0-33.0); Mean Corpuscular Volume 92.1 fL (80.0-98.0); Mean Platelet Volume 9.3 fL (9.4-12.3); Monocytes Absolute Auto 0.7 X10*3/uL (0.1-1.2); Monocytes Percent Auto 7.1 % (2-11); Neutrophils Absolute Auto 6.5 x10*3/uL (2.0-8.3); Neutrophils Percent Auto 66.3 % (45-73); Platelet Count 198 X10*3/uL (160-400); Red Blood Count 4.55 X10*6/uL (4.20-5.50); Red Cell Distribution Width 13.1 % (11.0-16.0); White Blood Count 9.9 X10*3/uL (4.8-10.8)
[2024-06-26 16:03] LABS: Anion Gap 10 (12-20); Blood Urea Nitrogen 24 mg/dL (9-16); Carbon Dioxide 29 mmol/L (22-29); Chloride 106 mmol/L (96-108); Creatinine Clr Calc Pharmacy 44.2; Estimated Glomerular Filt Rate 29; Glucose Random 116 mg/dL (60-115); Potassium 4.2 mmol/L (3.3-5.1); Sodium 141 mmol/L (135-145)
[2024-06-26 17:49] LABS: Alanine Aminotransferase 22 U/L (0-31); Albumin Level 3.6 g/dL (3.5-5.0); Alkaline Phosphatase 88 U/L (39-117); Aspartate Amino Transferase 27 U/L (5-31); Bilirubin Direct 0.2 mg/dL (0.0-0.5); Bilirubin Total 0.4 mg/dL (0.0-1.0); C Reactive Protein 0.76 mg/dL (< or = 0.50); Total Protein 6.9 g/dL (6.5-8.0)
[2024-06-26 20:44] LABS: Lactic Acid 1.9 mmol/L (0.5-2.0)
[2024-06-26 20:53] VITALS: BP 214/108; PULSE 108; RESP 16; TEMP 36.7; O2SAT 98
[2024-06-26 21:10] LABS: Erythrocyte Sedimentation Rate 40 MM/HR (0-20)
[2024-06-26 22:00] VITALS: BP 172/75; PULSE 96; RESP 16; TEMP 36.8; O2SAT 99
--- NOTE | 2024-06-26 22:30 | PC.NURSE ---
20G peripheral IV inserted to pt.'s left forearm. Tolerated well. Good blood return and flushes without difficulty or pain.
--- NOTE | 2024-06-26 22:33 | ED_ITS ---
HPI - Skin/Abscess/Foreign Bdy General Chief complaint: Skin/Abscess/Foreign Body Stated complaint: r toe infection-sent by urgent care Time Seen by Provider: 06/26/24 22:01 Source: patient and old records reviewed Mode of arrival: ambulatory Limitations: no limitations History of Present Illness ED Provider: CHAD ELMORE narrative: 68 yo female with PMH of DM, HTN, prior endocarditis s/p valve replacement prior L great toe amputation due to infection was on daptomycin in the past with I+D she is refusing vancomycin states it never works and she doesn't want it. Comes in with R great toe purulent lesion and now worsening heat, redness of R leg. She denies pain. No known trauma thinks it started as a blister. Did take a weeks course of cephalexin 06/03 complaint: rash and laceration Onset (ago): week(s) (2) Tetanus up to date: yes Location: RLE and R foot Relieving factors: none Exacerbating factors: palpation Context: recent antibiotic Associated symptoms: denies other symptoms Treatments prior to arrival: bandages and antibiotic Related Data Home Medications ?Medication ?Instructions ?Recorded ?Confirmed albuterol sulfate 90 mcg/actuation 2 puff inhalation Q6H PRN Wheezing 02/16/21 06/26/24 aerosol inhaler (ProAir HFA) bupropion HCl 300 mg 24 hr tablet, 150 mg PO QAM 02/16/21 06/26/24 extended release alprazolam 0.5 mg tablet mg PO 03/19/23 03/19/23 aspirin 81 mg tablet,delayed 81 mg PO DAILY 03/19/23 06/26/24 release cholecalciferol (vitamin D3) 50 50 mcg PO DAILY 03/19/23 06/26/24 mcg (2,000 unit) capsule insulin glargine 100 unit/mL (3 40 unit subcut BEDTIME 03/19/23 06/26/24 mL) subcutaneous pen (Lantus Solostar U-100 Insulin) insulin lispro 100 unit/mL subcut 03/19/23 03/19/23 subcutaneous pen (Humalog KwikPen (U-100) Insulin) meclizine 12.5 mg tablet 12.5 mg PO BID PRN Dizziness 03/19/23 06/26/24 metoprolol succinate 50 mg 50 mg PO DAILY 03/19/23 06/26/24 tablet,extended release 24 hr spironolactone 25 mg tablet 25 mg PO DAILY 06/20/23 06/26/24 Previous Rx's ?Medication ?Instructions ?Recorded acetaminophen 650 mg 650 mg PO Q8H PRN pain #90 tabs 02/16/21 tablet,extended release (Tylenol Arthritis Pain) Allergies Allergy/AdvReac Type Severity Reaction Status Date / Time alcohol Allergy Severe Anaphylaxis Verified 06/26/24 14:55 amlodipine Allergy Intermediate Hives Verified 06/26/24 14:55 insulin detemir Allergy Intermediate rash Verified 06/26/24 14:55 Sulfa (Sulfonamide Allergy Unknown hives Verified 06/26/24 14:55 Antibiotics) Review of Systems 2 Review of Systems: Constitutional : No Fever, No Chills ENT/Mouth : No sore throat, No Rhinorrhea Eyes: No Eye Pain, No Swelling, No Redness Cardiovascular : No Chest Pain, No SOB Respiratory : No Cough, No Sputum Gastrointestinal : No Nausea, No Vomiting, No Diarrhea, No abdominal Pain Genitourinary : No Dysuria, No Hematuria Musculoskeletal : No joint pain, No Myalgias, No Joint Swelling Skin : No Skin Lesions, positive skin rash Neuro : No Weakness, No Numbness, No Headache Psych : No Anxiety, No Depression Heme/Lymph: No Bruising, No Bleeding,No Lymphadenopathy Endocrine : No Polyuria, No Polydipsia All other systems reviewed and are negative [facility] Past Medical History Attestation statement: The following information was validated with the patient. Source: old records reviewed Medical History Osteomyelitis Foot ulcer Hx of cardiac pacemaker Surgical History S/P aortic valve and mitral valve replacement Social History Social History Patient Tobacco Use Status: Never used Tobacco Smoked in Last 30 Days: No e-Cigarette/Vaping Use: Never Used Use of substances other than those prescribed or required for medical reasons: No Advance Directives: No Advance Directives Information Provided: Yes Physical Exam 2 Vital Signs: Vital Signs: Last Vital Signs Temp 98.3 F 06/26/24 22:00 Pulse 96 06/26/24 22:00 Resp 16 06/26/24 22:00 BP 172/75 H 06/26/24 22:00 Pulse Ox 99 06/26/24 22:00 O2 Del Method Room Air 06/26/24 22:00 BMI result Body Mass Index 38.7 Appearance: Alert. Oriented X3. No acute distress. Eyes: Pupils equal, round and reactive to light. ENT: Pharynx normal. Neck: Normal inspection. Neck supple. CVS: Normal heart rate and rhythm. Pulses normal. Respiratory: No respiratory distress. Breath sounds normal. Abdomen: Soft and nontender. Skin: Skin warm and dry. Normal skin color. Normal skin turgor. Extremities: 1+ pitting edema both legs R leg is very red and hot to touch no crepitus she has a 2+ DP pulse on great toe at the IP join is a yellowish exudate foot is warm and hot to touch Neuro: Oriented X 3. No motor deficit. No sensory deficit. Medications Administered Generic Name Dose Route Start Last Admin Trade Name Freq PRN Reason Stop Dose Admin Enoxaparin Sodium 40 mg 06/26/24 23:00 06/26/24 23:04 Enoxaparin Sodium 40 Mg/0.4 Ml Syringe SUBCUT 40 mg Q24H ROSITA Administration Daptomycin 900 mg/ Sodium 68 mls @ 100 mls/hr 06/26/24 23:00 06/26/24 23:03 Chloride IV 100 mls/hr Q24H ROSITA Administration Discontinued Medications Generic Name Dose Route Start Last Admin Trade Name Freq PRN Reason Stop Dose Admin Piperacillin Sod/Tazobactam 50 mls @ 100 mls/hr 06/26/24 22:06 06/26/24 22:45 Sod 3.375 gm/ Sodium Chloride IV 06/26/24 22:35 100 mls/hr ONCE ONE Administration Medical Decision Making Medical Decision Making MDM Narrative: 68 yo female with PMH of DM, HTN, prior endocarditis s/p valve replacement here with RLE cellulitis and toe - she has no abscess normal pulses, no crepitus and no pain to suggest necrotizing infection at this time labs, xray, IV antibiotics and admission ordered - she refuses vancomycin will start on daptomycin Differential Diagnosis Differential Diagnoses: The differential diagnosis associated with the presentation includes cellulitis, osteo Admission/Observation Consideration of admission/observation: Escalation of care including admission/observation considered admit for further workup Consult Healthcare Provider Management of the patient was discussed with: Hospitalist (will admit) Lab Data MDM Lab Attestation statement: I reviewed the patient's lab results. 06/26/24 15:44 06/26/24 15:44 Labs: Lab Results 06/26/24 06/26/24 Range/Units 15:44 20:22 WBC 9.9 (4.8-10.8) X10*3/uL RBC 4.55 (4.20-5.50) X10*6/uL Hgb 13.9 (12.0-16.0) g/dl Hct 41.9 (37.0-47.0) % MCV 92.1 (80.0-98.0) fL MCH 30.5 (27.0-33.0) pg MCHC 33.2 (31.0-35.0) g/dl RDW 13.1 (11.0-16.0) % Plt Count 198 (160-400) X10*3/uL MPV 9.3 L (9.4-12.3) fL Immature Gran % (Auto) 0.3 (0.0-0.4) % Neut % (Auto) 66.3 (45-73) % Lymph % (Auto) 24.4 (20-40) % [place] % (Auto) 7.1 (2-11) % Eos % (Auto) 1.1 (0-4) % Baso % (Auto) 0.8 (0-2) % Lymph # (Auto) 2.4 (1.2-4.9) X10*3/uL [place] # (Auto) 0.7 (0.1-1.2) X10*3/uL Eos # (Auto) 0.1 (0.0-0.4) X10*3/uL Baso # (Auto) 0.1 (0.0-0.2) X10*3/uL Abs Immat Gran (auto) 0.03 (0.00-0.03) X10*3/uL Absolute Neuts (auto) 6.5 (2.0-8.3) x10*3/uL Absolute Nucleated RBC 0.000 (0.0-0.012) X10*3/uL Nucleated RBC % (auto) 0.0 (0.0-0.2) /100WBC ESR 40 H (0-20) MM/HR Sodium 141 (135-145) mmol/L Potassium 4.2 (3.3-5.1) mmol/L Chloride 106 (96-108) mmol/L Carbon Dioxide 29 (22-29) mmol/L Anion Gap 10 L (12-20) BUN 24 H (9-16) mg/dL Creatinine 1.73 H (0.5-1.4) mg/dL Estim Creat Clear Calc 44.2 Estimated GFR 29 Random Glucose 116 H (60-115) mg/dL Lactic Acid 1.9 (0.5-2.0) mmol/L Calcium 9.0 (8.4-10.2) mg/dL Total Bilirubin 0.4 (0.0-1.0) mg/dL Direct Bilirubin 0.2 (0.0-0.5) mg/dL AST 27 (5-31) U/L ALT 22 (0-31) U/L Alkaline Phosphatase 88 (39-117) U/L C-Reactive Protein 0.76 H (< or = 0.50) mg/dL Total Protein 6.9 (6.5-8.0) g/dL Albumin 3.6 (3.5-5.0) g/dL Independent Interpretation I performed an independent interpretation of an: Plain X-Ray (+ osteo) Radiology Impression Discussion of test interpretation with radiology: I have reviewed the radiologist's reading. External Record Review External record reviewed: Office record Discharge Plan Discharge Clinical Impression: Cellulitis Qualifiers: Site of cellulitis: extremity Site of cellulitis of extremity: lower extremity Laterality: right Qualified Code(s): L03.115 - Cellulitis of right lower limb Osteomyelitis Qualifiers: Osteomyelitis type: unspecified type Osteomyelitis location: foot Laterality: r ight Qualified Code(s): M86.9 - Osteomyelitis, unspecified Patient Disposition: Admitted As Inpatient
[2024-06-26] MEDS: Piperacillin Sodium/Tazobactam 3.375 GM in 0.9 % Sodium Chloride 50 ML IV (22:45)
--- NOTE | 2024-06-26 22:58 | PM.IMHP ---
History of Present Illness Date of Service: 06/26/24 Attending physician on admission: Alphonse Timmons Chief Complaint: Worsening right toe wound Pt is a 68-year-old female with a PMH significant for?HTN, endocarditis s/p valve replacement, insulin-dependent type 2 diabetes, hx of osteo s/p left great toe amputation, CKD 3, ITZEL not on CPAP and anxiety who presents to the ED with?worsening right toe wound. Patient reports she has a long history of toe infections, and has been [facility] many years. States on 06/01 patient was taking a shower when the skin on her right great toe ?loosened up and sloughed off revealing a ?dome shaped blister?. Patient also experienced bilateral lower leg swelling and presented to [facility] on 06/01 where she was unable to receive an ultrasound but was discharged on a 1 week course of cephalexin. Patient was eventually able to get her ultrasound at [facility] in [place] which was negative for DVT. Despite being on oral antibiotics patient's wound continued to worsened, and patient's right lower extremity became swollen, red, and warm. Was unsuccessful at getting appointment with either PCP or Wound Care, and presented today to the ED for further evaluation. Denies any other acute medical complaints. Patient with peripheral neuropathy and denies lower extremity pain. No fever or chills. Denies shortness or breath or difficulty breathing. No chest pain/pressure, palpitations. Denies nausea, vomiting, abdominal pain. Of note, patient does not want to be treated with vancomycin as she reports it has never worked for her before. Has been on daptomycin in the past. In the ED pt was tachycardic up to 108 and hypertensive up to 214/108. Labs were significant for ESR 40 and mildly elevated CRP 0.76, otherwise grossly unremarkable. No leukocytosis. Stable H&H. No significant electrolyte abnormalities. Renal function baseline at 1.73. Hepatic function WNL. Lactic acid WNL at 1.9. X-ray of right foot showed small focal cortical erosion of 1st proximal phalangeal head, concerning for early osteomyelitis. Pt was treated with daptomycin and Zosyn. Pt will be admitted to the hospital for treatment and further evaluation of acute right lower extremity cellulitis in the setting of diabetic foot ulcer concerning for osteomyelitis. Review of Systems Review of Systems: Negative except for that which is stated in the HPI PMFSH Medical History Osteomyelitis Foot ulcer Hx of cardiac pacemaker Surgical History S/P aortic valve and mitral valve replacement Social History Patient Tobacco Use Status: Never used Tobacco Smoked in Last 30 Days: No e-Cigarette/Vaping Use: Never Used Use of substances other than those prescribed or required for medical reasons: No Advance Directives: No Advance Directives Information Provided: Yes Meds Allergies Allergy/AdvReac Type Severity Reaction Status Date / Time alcohol Allergy Severe Anaphylaxis Verified 06/26/24 14:55 amlodipine Allergy Intermediate Hives Verified 06/26/24 14:55 insulin detemir Allergy Intermediate rash Verified 06/26/24 14:55 Sulfa (Sulfonamide Allergy Unknown hives Verified 06/26/24 14:55 Antibiotics) Active Medications: Current Medications Acetaminophen (Acetaminophen 325 Mg Tablet) 650 mg PO Q6H PRN PRN Reason: Pain, Mild (Pain Scale 1-3), fever or headache Calcium Carbonate (Calcium Carbonate 750 Mg Tab.Chew) 750 mg PO Q4H PRN PRN Reason: Heartburn Enoxaparin Sodium (Enoxaparin Sodium 40 Mg/0.4 Ml Syringe) 40 mg SUBCUT Q24H ROSITA Glucose (Glucose Gel 15 Gm Gel..Gram.) 15 gm PO Q15M PRN; Protocol PRN Reason: per Hypoglycemia Standing Ord. Dextrose (D10) 250 mls @ 750 mls/hr IV Q15M PRN; Protocol PRN Reason: per Hypoglycemia Standing Ord. Daptomycin 900 mg/ Sodium (Chloride) 68 mls @ 100 mls/hr IV Q24H ROSITA Insulin Human Lispro (Insulin Lispro 100 Unit/Ml 3 Ml Vial) 0 unit SUBCUT QIDACHS ROSITA; Protocol Magnesium Hydroxide (Milk Of Magnesia 30 Ml Oral.Susp) 30 ml PO DAILY PRN PRN Reason: Constipation Melatonin (Melatonin 3 Mg Tablet) 6 mg PO BEDTIME PRN PRN Reason: Insomnia Ondansetron HCl (Ondansetron Hcl 4 Mg/2 Ml Vial) 4 mg IVPUSH Q8H PRN PRN Reason: Nausea and Vomiting Sodium Chloride (0.9 % Sodium Chloride Flush 3 Ml Syringe) 3 ml IVFLUSH QSHIFT [facility] Home Medications ?Medication ?Instructions ?Recorded ?Confirmed ?Last Taken ?Type albuterol sulfate 90 mcg/actuation 2 puff inhalation Q6H PRN Wheezing 02/16/21 06/26/24 06/25/24 History aerosol inhaler (ProAir HFA) bupropion HCl 300 mg 24 hr tablet, 150 mg PO QAM 02/16/21 06/26/24 06/25/24 History extended release alprazolam 0.5 mg tablet mg PO 03/19/23 03/19/23 06/25/24 History aspirin 81 mg tablet,delayed 81 mg PO DAILY 03/19/23 06/26/24 06/25/24 History release cholecalciferol (vitamin D3) 50 50 mcg PO DAILY 03/19/23 06/26/24 06/25/24 History mcg (2,000 unit) capsule insulin glargine 100 unit/mL (3 40 unit subcut BEDTIME 03/19/23 06/26/24 06/25/24 History mL) subcutaneous pen (Lantus Solostar U-100 Insulin) insulin lispro 100 unit/mL subcut 03/19/23 03/19/23 Unknown History subcutaneous pen (Humalog KwikPen (U-100) Insulin) meclizine 12.5 mg tablet 12.5 mg PO BID PRN Dizziness 03/19/23 06/26/24 06/25/24 History metoprolol succinate 50 mg 50 mg PO DAILY 03/19/23 06/26/24 06/25/24 History tablet,extended release 24 hr spironolactone 25 mg tablet 25 mg PO DAILY 06/20/23 06/26/24 06/25/24 History Physical Exam Vital Signs and Narrative: Vital Signs: Last Vital Signs Temp 98.3 F 06/26/24 22:00 Pulse 96 06/26/24 22:00 Resp 16 06/26/24 22:00 BP 172/75 H 06/26/24 22:00 Pulse Ox 99 06/26/24 22:00 O2 Del Method Room Air 06/26/24 22:00 BMI result Body Mass Index 38.7 General: AOx3, no acute distress Resp: CTA bilaterally CVS: S1, S2, RRR, +murmur GI: +BS, NT, no distention Skin: Warm, dry Neuro: Cranial nerves II-XII grossly intact bilaterally. Motor grossly intact bilaterally Extremities: Right lower leg edema, erythema, and warmth. Chronic open wound on right great toe as pictured below. Psych: Appropriate affect Results Labs 06/26/24 15:44 06/26/24 15:44 Labs: Laboratory Results - last 24 hr 06/26/24 06/26/24 15:44 20:22 MCV 92.1 MCH 30.5 MCHC 33.2 RDW 13.1 Plt Count 198 MPV 9.3 L Immature Gran % (Auto) 0.3 Neut % (Auto) 66.3 Lymph % (Auto) 24.4 [place] % (Auto) 7.1 Eos % (Auto) 1.1 Baso % (Auto) 0.8 Lymph # (Auto) 2.4 [place] # (Auto) 0.7 Eos # (Auto) 0.1 Baso # (Auto) 0.1 Abs Immat Gran (auto) 0.03 Absolute Neuts (auto) 6.5 Absolute Nucleated RBC 0.000 Nucleated RBC % (auto) 0.0 ESR 40 H Anion Gap 10 L Estim Creat Clear Calc 44.2 Estimated GFR 29 Random Glucose 116 H Lactic Acid 1.9 Calcium 9.0 Total Bilirubin 0.4 Direct Bilirubin 0.2 AST 27 ALT 22 Alkaline Phosphatase 88 C-Reactive Protein 0.76 H Total Protein 6.9 Albumin 3.6 Imaging Radiologist's Impressions: Impressions Foot X-Ray 06/26/24 15:15 IMPRESSION: 1. Probable soft tissue wound overlying the 1st interphalangeal joint, without radiopaque calcification or abnormal soft tissue calcification. Small focal cortical erosion within the 1st proximal phalangeal head, in the region of the wound, concerning for early osteomyelitis. 2. 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 Electronically signed by: Joaquin Wall MD 06/26/2024 05:12 PM [facility] [place] (1) Cellulitis: Qualifiers: Laterality: right Site of cellulitis: extremity Site of cellulitis of extremity: lower extremity Qualified Code(s): L03.115 - Cellulitis of right lower limb Status: Acute Plan Pt is a 68-year-old female with a PMH significant for?HTN, endocarditis s/p valve replacement, insulin-dependent type 2 diabetes, hx of osteo s/p left great toe amputation, CKD 3, ITZEL not on CPAP and anxiety who presents to the ED with?worsening right toe wound. Pt will be admitted to the hospital for treatment and further evaluation of acute right lower extremity cellulitis in the setting of diabetic foot ulcer concerning for osteomyelitis. Right lower leg cellulitis in the setting of great toe diabetic foot ulcer concerning for osteomyelitis LLE with swelling, warmth, erythema X-ray of right foot showed small focal cortical erosion of 1st proximal phalangeal head, concerning for early osteomyelitis ESR 40, CRP mildly elevated at 0.76 Will get MRI of right foot to r/o osteo No sepsis: No tachycardia, tachypnea, fever, or leukocytosis Pt refuses vancomycin, stating it has not worked in the past Will treat with daptomycin, started 06/27/2024 ID consult General surgery consult Insulin-dependent type 2 diabetes Sliding-scale insulin, Lantus Diabetic diet HTN Continue metoprolol, spironolactone CKD 3 Creatinine stable Mood disorder Continue bupropion, alprazolam Full Code Attending:?Dr. Timmons DVT Prophylaxis: Lovenox Pt will require a hospitalization of at least two nights for treatment of?right lower leg cellulitis in the setting of great toe diabetic foot ulcer concerning for osteomyelitis. Patient will require IV antibiotics and additional workup to rule out osteomyelitis. Quality Stroke Does the patient have a stroke diagnosis?: No VTE Prior VTE?: No VTE Risk Level:: Medical - moderate - high VTE Device Contraindication: Treatment Not Indicated VTE Drug Contraindication: N/A - Med Ordered
[2024-06-26] MEDS: DAPTOmycin 900 MG in 0.9 % Sodium Chloride 50 ML 100 MG IV (23:03)
[2024-06-26] MEDS: Enoxaparin Sodium 40 MG/0.4 ML SYRINGE SUBCUT (23:04)
--- NOTE | 2024-06-26 23:24 | PC.NURSE ---
provider into assess pt.
[2024-06-27] VITALS (7 sets, daily range): BP systolic 137–167; BP diastolic 73–86; PULSE 83–95; RESP 14–20; TEMP 36.1–36.6; O2SAT 95–98
[2024-06-27] MEDS: buPROPion HCl XL 150 MG TAB.ER.24H PO ×2 (00:05→09:27)
[2024-06-27] MEDS: Insulin Glargine,Hum.rec.anlog 100 UNIT/ML 10 ML VIAL 35 UNIT SUBCUT ×2 (00:05→20:40)
[2024-06-27] MEDS: ALPRAZolam 0.25 MG TABLET 0.75 MG PO ×2 (00:05→20:39)
--- NOTE | 2024-06-27 00:09 | PC.NURSE ---
Medicated for oct.
[2024-06-27] MEDS: Acetaminophen 325 MG TABLET 650 MG PO (01:18)
[2024-06-27] MEDS: 0.9 % Sodium Chloride Flush 3 ML SYRINGE IVFLUSH ×4 (01:34→22:45)
--- NOTE | 2024-06-27 01:40 | PC.NURSE ---
Notified Dr. Timmons, Daptomycin 500mg was attached to pt but not running, medication hung by prior nurse, Verified order with charge nurse Lexi. Per Dr. Iain andujar to branch office administrator medication.
--- NOTE | 2024-06-27 01:42 | PC.NURSE ---
Pt oob to the bathroom independently.
--- NOTE | 2024-06-27 05:46 | PC.NURSE ---
Pt is sleeping, no sign of distress.
--- NOTE | 2024-06-27 06:48 | PC.NURSE ---
PT has positive cms and pedal pulse
[2024-06-27 06:55] LABS: MANUAL DIFF FLAG NO
[2024-06-27 06:56] LABS: Basophils Absolute Auto 0.1 X10*3/uL (0.0-0.2); Basophils Percent Auto 0.8 % (0-2); Eosinophils Absolute Auto 0.2 X10*3/uL (0.0-0.4); Eosinophils Percent Auto 2.1 % (0-4); Hematocrit 38.4 % (37.0-47.0); Hemoglobin 12.7 g/dl (12.0-16.0); Imm Gran Abs Auto 0.02 X10*3/uL (0.00-0.03); Imm Gran Pct Auto 0.2 % (0.0-0.4); Lymphocytes Absolute Auto 3.2 X10*3/uL (1.2-4.9); Lymphocytes Percent Auto 34.9 % (20-40); Mean Corpuscular HGB Conc 33.1 g/dl (31.0-35.0); Mean Corpuscular Hemoglobin 30.7 pg (27.0-33.0); Mean Corpuscular Volume 92.8 fL (80.0-98.0); Mean Platelet Volume 9.5 fL (9.4-12.3); Monocytes Absolute Auto 0.7 X10*3/uL (0.1-1.2); Neutrophils Absolute Auto 4.9 x10*3/uL (2.0-8.3); Platelet Count 197 X10*3/uL (160-400); Red Blood Count 4.14 X10*6/uL (4.20-5.50); Red Cell Distribution Width 13.1 % (11.0-16.0); White Blood Count 9.1 X10*3/uL (4.8-10.8)
[2024-06-27 07:09] LABS: Glucose, Whole Blood 86 mg/dL (60-115)
[2024-06-27 07:19] LABS: Anion Gap 10 (12-20); Blood Urea Nitrogen 24 mg/dL (9-16); Calcium 8.6 mg/dL (8.4-10.2); Carbon Dioxide 29 mmol/L (22-29); Chloride 105 mmol/L (96-108); Creatinine Clr Calc Pharmacy 41.6; Estimated Glomerular Filt Rate 27; Glucose Random 88 mg/dL (60-115); Potassium 3.8 mmol/L (3.3-5.1); Sodium 140 mmol/L (135-145)
--- NOTE | 2024-06-27 09:15 | PHA.MEDREC ---
Addendum entered by Gracy Meyer [facility] 07/02/24 10:22: added pristiq to med list, patient had brought in to have while staying, messaged provider to continue. Addendum entered by Barb Rich [facility] 06/27/24 10:16: Reviewed by [facility] Original Note: Pharmacy Consult ? Medication Reconciliation Pharmacy has completed the medication reconciliation. Spoke to patient to confirm med list med list. patient was able to tell me what medications she takes. patient confirmed Lantus 35-40 units at bedtime and insulin Lispro 30 unit tid per sliding scale.
[2024-06-27] MEDS: Spironolactone 25 MG TABLET PO (09:26)
[2024-06-27] MEDS: Cholecalciferol (Vitamin D3) 25 MCG TABLET 50 MCG PO (09:27)
[2024-06-27] MEDS: Metoprolol Succinate ER 50 MG TAB.ER.24H PO (09:27)
[2024-06-27] MEDS: Aspirin Enteric Coated 81 MG TABLET.DR PO (09:27)
[2024-06-27 11:45] LABS: Glucose, Whole Blood 137 mg/dL (60-115)
--- NOTE | 2024-06-27 12:59 | MHC.CM.PN ---
pt lives with tavo who is away at school pt has hves 8 to 1 daily 5 days a week pt has own ride home
--- NOTE | 2024-06-27 13:35 | PM.CNGS ---
History of Present Illness Consult details Consult date: 06/27/24 Narrative: 68-year-old female with multiple medical problems including obstructive sleep apnea, obesity, chronic kidney disease, aortic valve replacement, diabetes, previous amputations of the toe, admitted because of an ulcer on the dorsum of the right big toe She says that she had noticed this as a blister over a month ago and this had opened up. She has had the open wound that time. She says she had been seen by the [facility] here in the past but she could not get a another appointment. She had noticed a redness of the areas so she decided to come to the ER She has had amputation of the 2nd and 3rd toes on the left as well as the toe on the right . She was noted to be very hypertensive in the ED. Review of Systems Constitutional: Constitutional: Denies chills and Denies fever(s) Cardiovascular: Cardiovascular: Reports dyspnea on exertion Respiratory: Respiratory: Denies cough and Reports dyspnea on exertion Gastrointestinal: Gastrointestinal: Denies abdominal pain Genitourinary: Genitourinary: Denies difficulty voiding PMFSH Past Medical History Medical History Toe ulcer Osteomyelitis Foot ulcer Hx of cardiac pacemaker Surgical History Surgical History S/P aortic valve and mitral valve replacement Social History Social History Household Members Other:: daughter there sometimes Housing: House Do you presently have visiting nurse or other home services: Yes (home health aide) Patient Tobacco Use Status: Never used Tobacco e-Cigarette/Vaping Use: Never Used service: No Meds Allergies Allergy/AdvReac Type Severity Reaction Status Date / Time alcohol Allergy Severe Anaphylaxis Verified 06/26/24 14:55 amlodipine Allergy Intermediate Hives Verified 06/26/24 14:55 insulin detemir Allergy Intermediate rash Verified 06/26/24 14:55 Sulfa (Sulfonamide Allergy Unknown hives Verified 06/26/24 14:55 Antibiotics) Active Medications: Current Medications Acetaminophen (Acetaminophen 325 Mg Tablet) 650 mg PO Q6H PRN PRN Reason: Pain, Mild (Pain Scale 1-3), fever or headache Last Admin: 06/27/24 01:18 Dose: 650 mg Albuterol Sulfate (Albuterol Sulfate 90 Mcg 8 Gm Inhaler) 2 puff INHALE Q6H PRN PRN Reason: Wheezing Alprazolam (Alprazolam 0.25 Mg Tablet) 0.75 mg PO BEDTIME [facility] Last Admin: 06/27/24 00:05 Dose: 0.75 mg Aspirin (Aspirin Enteric Coated 81 Mg Tablet.Dr) 81 mg PO DAILY [facility] Last Admin: 06/27/24 09:27 Dose: 81 mg Bupropion HCl (Bupropion Hcl Xl 150 Mg Tab.Er.24h) 150 mg PO DAILY [facility] Last Admin: 06/27/24 09:27 Dose: 150 mg Calcium Carbonate (Calcium Carbonate 750 Mg Tab.Chew) 750 mg PO Q4H PRN PRN Reason: Heartburn Enoxaparin Sodium (Enoxaparin Sodium 40 Mg/0.4 Ml Syringe) 40 mg SUBCUT Q24H [facility] Last Admin: 06/26/24 23:04 Dose: 40 mg Glucose (Glucose Gel 15 Gm Gel..Gram.) 15 gm PO Q15M PRN; Protocol PRN Reason: per Hypoglycemia Standing Ord. Dextrose (D10) 250 mls @ 750 mls/hr IV Q15M PRN; Protocol PRN Reason: per Hypoglycemia Standing Ord. Daptomycin 900 mg/ Sodium (Chloride) 68 mls @ 100 mls/hr IV Q24H [facility] Last Infusion: 06/27/24 01:09 Dose: Infused Insulin Glargine (Insulin Glargine,Hum.Rec.Anlog 100 Unit/Ml 10 Ml Vial) 35 unit SUBCUT BEDTIME [facility] Last Admin: 06/27/24 00:05 Dose: 35 unit Insulin Human Lispro (Insulin Lispro 100 Unit/Ml 3 Ml Vial) 0 unit SUBCUT QIDACHS [facility]; Protocol Last Admin: 06/27/24 11:48 Dose: Not Given Magnesium Hydroxide (Milk Of Magnesia 30 Ml Oral.Susp) 30 ml PO DAILY PRN PRN Reason: Constipation Meclizine HCl (Meclizine Hcl 12.5 Mg Tablet) 12.5 mg PO BID PRN PRN Reason: Dizziness Melatonin (Melatonin 3 Mg Tablet) 6 mg PO BEDTIME PRN PRN Reason: Insomnia Metoprolol Succinate (Metoprolol Succinate Er 50 Mg Tab.Er.24h) 50 mg PO DAILY [facility]; Protocol Last Admin: 06/27/24 09:27 Dose: 50 mg Ondansetron HCl (Ondansetron Hcl 4 Mg/2 Ml Vial) 4 mg IVPUSH Q8H PRN PRN Reason: Nausea and Vomiting Sodium Chloride (0.9 % Sodium Chloride Flush 3 Ml Syringe) 3 ml IVFLUSH QSHIFT [facility] Last Admin: 06/27/24 09:27 Dose: 3 ml Spironolactone (Spironolactone 25 Mg Tablet) 25 mg PO DAILY [facility]; Protocol Last Admin: 06/27/24 09:26 Dose: 25 mg Vitamin D (Cholecalciferol (Vitamin D3) 25 Mcg Tablet) 50 mcg PO DAILY [facility] Last Admin: 06/27/24 09:27 Dose: 50 mcg Home Medications ?Medication ?Instructions ?Recorded ?Confirmed ?Last Taken ?Type alprazolam 0.5 mg tablet 0.5 - 1 mg PO DAILY PRN Anxiety 03/19/23 06/27/24 Unknown History aspirin 81 mg tablet,delayed 81 mg PO DAILY 03/19/23 06/26/24 06/25/24 History release cholecalciferol (vitamin D3) 50 50 mcg PO DAILY 03/19/23 06/26/24 06/25/24 History mcg (2,000 unit) capsule insulin glargine 100 unit/mL (3 40 unit subcut BEDTIME 03/19/23 06/26/24 06/25/24 History mL) subcutaneous pen (Lantus Solostar U-100 Insulin) insulin lispro 100 unit/mL 30 sliding scale dose subcut TID 03/19/23 06/27/24 06/25/24 History subcutaneous pen (Humalog KwikPen (U-100) Insulin) meclizine 12.5 mg tablet 12.5 mg PO BID PRN Dizziness 03/19/23 06/27/24 Unknown History metoprolol succinate 50 mg 50 mg PO DAILY 03/19/23 06/26/24 06/25/24 History tablet,extended release 24 hr spironolactone 25 mg tablet 25 mg PO DAILY 06/20/23 06/26/24 06/25/24 History albuterol sulfate 90 mcg/actuation 2 puff inhalation Q6H PRN 06/27/24 06/27/24 Unknown History aerosol inhaler (Ventolin HFA) Shortness Of Breath Or Wheezing alprazolam 0.5 mg tablet 0.75 mg PO BEDTIME 06/27/24 06/27/24 06/25/24 History bupropion HCl 150 mg 24 hr tablet, 150 mg PO DAILY 06/27/24 06/27/24 06/25/24 History extended release desvenlafaxine succinate 50 mg 50 mg PO DAILY 07/02/24 07/02/24 Unknown History tablet,extended release 24 hr Physical Exam Vital Signs: Vital Signs: Last Vital Signs Temp 97.1 F 06/27/24 11:40 Pulse 83 06/27/24 11:40 Resp 16 06/27/24 11:40 BP 149/86 H 06/27/24 11:40 Pulse Ox 98 06/27/24 11:40 O2 Del Method Room Air 06/27/24 11:40 BMI result Body Mass Index 38.7 Const: Other: Morbidly obese General: comfortable and no acute distress Orientation/consciousness: patient oriented x3 Neck: Neck: Yes no lymphadenopathy Resp: Auscultation: clear to auscultation bilaterally Cardio: Rhythm: regular rhythm GI: Palpation (GI): Soft to palpation, nontender and no guarding Neuro: General: patient oriented x3 Extrem: Other: Toe ulcer on the dorsum of the big toe about 1 point 5 cm in diameter, with biofilm, and thick fibrinous debris, well-defined edges Results Labs 06/27/24 06:07 07/02/24 07:28 Labs: Abnormal lab results 06/26/24 06/26/24 06/27/24 Range/Units 15:44 20:22 06:07 RBC 4.14 L (4.20-5.50) X10*6/uL MPV 9.3 L (9.4-12.3) fL ESR 40 H (0-20) MM/HR Anion Gap 10 L 10 L (12-20) BUN 24 H 24 H (9-16) mg/dL Creatinine 1.73 H 1.84 H (0.5-1.4) mg/dL POC Glucose (60-115) mg/dL Random Glucose 116 H (60-115) mg/dL C-Reactive Protein 0.76 H (< or = 0.50) mg/dL 06/27/24 Range/Units 11:41 RBC (4.20-5.50) X10*6/uL MPV (9.4-12.3) fL ESR (0-20) MM/HR Anion Gap (12-20) BUN (9-16) mg/dL Creatinine (0.5-1.4) mg/dL POC Glucose 137 H (60-115) mg/dL Random Glucose (60-115) mg/dL C-Reactive Protein (< or = 0.50) mg/dL Short CBC 06/26/24 06/27/24 Range/Units 15:44 06:07 WBC 9.9 9.1 (4.8-10.8) X10*3/uL Hgb 13.9 12.7 (12.0-16.0) g/dl Hct 41.9 38.4 (37.0-47.0) % Plt Count 198 197 (160-400) X10*3/uL BMP 06/26/24 06/27/24 15:44 06:07 Sodium 141 140 Potassium 4.2 3.8 Chloride 106 105 Carbon Dioxide 29 29 BUN 24 H 24 H Creatinine 1.73 H 1.84 H Calcium 9.0 8.6 Liver Function 06/26/24 Range/Units 15:44 Total Bilirubin 0.4 (0.0-1.0) mg/dL Direct Bilirubin 0.2 (0.0-0.5) mg/dL AST 27 (5-31) U/L ALT 22 (0-31) U/L Alkaline Phosphatase 88 (39-117) U/L Albumin 3.6 (3.5-5.0) g/dL All other labs normal. Assessment and Plan (1) Toe ulcer: Status: Acute She had the toe ulcer as described above with a biofilm as well as fibrinous debris. I had bluntly debrided this with gauze down to what appears to be healthier granulating tissue I covered this with dry dressings. I will recheck on this while she is in the hospital down the line She needs good control of her blood sugars. She does not appear to require any toe amputation at this time She has been started on antibiotics and I will follow along while she is here. Procedures Date of Service Date of Service: 07/08/24
--- NOTE | 2024-06-27 13:55 | HO.PM.IMPN ---
Subjective Subjective Date of Service: 06/27/24 Interval History: Worsening right toe wound/right leg cellulitis Review of Systems wound area seems similar has some mild erythema of right leg also Physical Exam Vital Signs: Vital Signs: Last Vital Signs Temp 97.1 F 06/27/24 11:40 Pulse 83 06/27/24 11:40 Resp 16 06/27/24 11:40 BP 149/86 H 06/27/24 11:40 Pulse Ox 98 06/27/24 11:40 O2 Del Method Room Air 06/27/24 11:40 BMI result Body Mass Index 38.7 Appearance: Alert.? Oriented X3.? cvs: rrr, [id number] . res: clear to auscultation ,no rhonchii or wheezing abd: no rebound or guarding ,nt, bs present. skin;both legs R leg has erythema , on great toe at the IP join is a yellowish exudate . neuro: axo3 , nonfocal. Objective Data Active Medications Acetaminophen (Acetaminophen 325 Mg Tablet) 650 mg PO Q6H PRN PRN Reason: Pain, Mild (Pain Scale 1-3), fever or headache Last Admin: 06/27/24 01:18 Dose: 650 mg Documented By: WADE Albuterol Sulfate (Albuterol Sulfate 90 Mcg 8 Gm Inhaler) 2 puff INHALE Q6H PRN PRN Reason: Wheezing Alprazolam (Alprazolam 0.25 Mg Tablet) 0.75 mg PO BEDTIME [facility] Last Admin: 06/27/24 00:05 Dose: 0.75 mg Documented By: WADE Alprazolam (Alprazolam 0.25 Mg Tablet) 0.75 mg PO BEDTIME [facility] Alprazolam (Alprazolam 0.5 Mg Tablet) 0.5 mg PO DAILY PRN PRN Reason: Anxiety Aspirin (Aspirin Enteric Coated 81 Mg Tablet.Dr) 81 mg PO DAILY [facility] Last Admin: 06/27/24 09:27 Dose: 81 mg Documented By: BROCKOPEStephie Bupropion HCl (Bupropion Hcl Xl 150 Mg Tab.Er.24h) 150 mg PO DAILY [facility] Last Admin: 06/27/24 09:27 Dose: 150 mg Documented By: BROCKOPEStephie Bupropion HCl (Bupropion Hcl Xl 150 Mg Tab.Er.24h) 150 mg PO DAILY [facility] Calcium Carbonate (Calcium Carbonate 750 Mg Tab.Chew) 750 mg PO Q4H PRN PRN Reason: Heartburn Enoxaparin Sodium (Enoxaparin Sodium 40 Mg/0.4 Ml Syringe) 40 mg SUBCUT Q24H [facility] Last Admin: 06/26/24 23:04 Dose: 40 mg Documented By: ROLANDO Glucose (Glucose Gel 15 Gm Gel..Gram.) 15 gm PO Q15M PRN; Protocol PRN Reason: per Hypoglycemia Standing Ord. Dextrose (D10) 250 mls @ 750 mls/hr IV Q15M PRN; Protocol PRN Reason: per Hypoglycemia Standing Ord. Daptomycin 900 mg/ Sodium (Chloride) 68 mls @ 100 mls/hr IV Q24H [facility] Last Infusion: 06/27/24 01:09 Dose: Infused Documented By: WADE Insulin Glargine (Insulin Glargine,Hum.Rec.Anlog 100 Unit/Ml 10 Ml Vial) 35 unit SUBCUT BEDTIME [facility] Last Admin: 06/27/24 00:05 Dose: 35 unit Documented By: WADE Insulin Human Lispro (Insulin Lispro 100 Unit/Ml 3 Ml Vial) 0 unit SUBCUT QIDACHS [facility]; Protocol Last Admin: 06/27/24 11:48 Dose: Not Given Documented By: MCKAYLA Non-Admin Reason: No Insulin Coverage Magnesium Hydroxide (Milk Of Magnesia 30 Ml Oral.Susp) 30 ml PO DAILY PRN PRN Reason: Constipation Meclizine HCl (Meclizine Hcl 12.5 Mg Tablet) 12.5 mg PO BID PRN PRN Reason: Dizziness Melatonin (Melatonin 3 Mg Tablet) 6 mg PO BEDTIME PRN PRN Reason: Insomnia Metoprolol Succinate (Metoprolol Succinate Er 50 Mg Tab.Er.24h) 50 mg PO DAILY [facility]; Protocol Last Admin: 06/27/24 09:27 Dose: 50 mg Documented By: SHEILA Ondansetron HCl (Ondansetron Hcl 4 Mg/2 Ml Vial) 4 mg IVPUSH Q8H PRN PRN Reason: Nausea and Vomiting Sodium Chloride (0.9 % Sodium Chloride Flush 3 Ml Syringe) 3 ml IVFLUSH QSHIFT [facility] Last Admin: 06/27/24 09:27 Dose: 3 ml Documented By: HO.COOPEB Spironolactone (Spironolactone 25 Mg Tablet) 25 mg PO DAILY [facility]; Protocol Last Admin: 06/27/24 09:26 Dose: 25 mg Documented By: SHEILA Vitamin D (Cholecalciferol (Vitamin D3) 25 Mcg Tablet) 50 mcg PO DAILY [facility] Last Admin: 06/27/24 09:27 Dose: 50 mcg Documented By: SHEIAL Labs 06/27/24 06:07 06/27/24 06:07 Labs: Laboratory Results - last 24 hr 06/26/24 06/26/24 06/27/24 15:44 20:22 06:07 MCV 92.1 92.8 MCH 30.5 30.7 MCHC 33.2 33.1 RDW 13.1 13.1 Plt Count 198 197 MPV 9.3 L 9.5 Immature Gran % (Auto) 0.3 0.2 Neut % (Auto) 66.3 54.0 Lymph % (Auto) 24.4 34.9 Davis % (Auto) 7.1 8.0 Eos % (Auto) 1.1 2.1 Baso % (Auto) 0.8 0.8 Lymph # (Auto) 2.4 3.2 Davis # (Auto) 0.7 0.7 Eos # (Auto) 0.1 0.2 Baso # (Auto) 0.1 0.1 Abs Immat Gran (auto) 0.03 0.02 Absolute Neuts (auto) 6.5 4.9 Absolute Nucleated RBC 0.000 0.000 Nucleated RBC % (auto) 0.0 0.0 ESR 40 H Anion Gap 10 L 10 L Estim Creat Clear Calc 44.2 41.6 Estimated GFR 29 27 POC Glucose Random Glucose 116 H 88 Lactic Acid 1.9 Calcium 9.0 8.6 Total Bilirubin 0.4 Direct Bilirubin 0.2 AST 27 ALT 22 Alkaline Phosphatase 88 C-Reactive Protein 0.76 H Total Protein 6.9 Albumin 3.6 06/27/24 06/27/24 07:02 11:41 MCV MCH MCHC RDW Plt Count MPV Immature Gran % (Auto) Neut % (Auto) Lymph % (Auto) Davis % (Auto) Eos % (Auto) Baso % (Auto) Lymph # (Auto) Davis # (Auto) Eos # (Auto) Baso # (Auto) Abs Immat Gran (auto) Absolute Neuts (auto) Absolute Nucleated RBC Nucleated RBC % (auto) ESR Anion Gap Estim Creat Clear Calc Estimated GFR POC Glucose 86 137 H Random Glucose Lactic Acid Calcium Total Bilirubin Direct Bilirubin AST ALT Alkaline Phosphatase C-Reactive Protein Total Protein Albumin Assessment and Plan (1) Toe ulcer: Status: Acute Plan 68-year-old female with a PMH significant for?HTN, endocarditis s/p valve replacement, insulin-dependent type 2 diabetes, hx of osteo s/p left great toe amputation, CKD 3, ITZEL not on CPAP and anxiety who presents to the ED with?worsening right toe wound. Pt will be admitted to the hospital for treatment and further evaluation of acute right lower extremity cellulitis in the setting of diabetic foot ulcer concerning for osteomyelitis. Right lower leg cellulitis in the setting of great toe diabetic foot ulcer concerning for osteomyelitis LLE with swelling, warmth, erythema X-ray of right foot showed small focal cortical erosion of 1st proximal phalangeal head, concerning for early osteomyelitis ESR 40, CRP mildly elevated at 0.76 Will get MRI of right foot to r/o osteo Pt refuses vancomycin, stating it has not worked in the past, intiated on daptomycin, started 06/27/2024 ID consult,General surgery consult Insulin-dependent type 2 diabetes Sliding-scale insulin, Lantus Diabetic diet HTN Continue metoprolol, spironolactone CKD 3 Creatinine stable Mood disorder Continue bupropion, alprazolam Full Code DVT Prophylaxis: Lovenox ongoing need for hospitalization for treatment of?right lower leg cellulitis in the setting of great toe diabetic foot ulcer concerning for osteomyelitis. Patient will require IV antibiotics and additional workup to rule out osteomyelitis. Quality Stroke Does the patient have a stroke diagnosis?: No VTE Prior VTE?: No VTE Risk Level:: Medical - moderate - high VTE Device Contraindication: Treatment Not Indicated VTE Drug Contraindication: N/A - Med Ordered
[2024-06-27 16:32] LABS: Glucose, Whole Blood 190 mg/dL (60-115)
[2024-06-27] MEDS: Insulin Lispro 100 UNIT/ML 3 ML VIAL SUBCUT (17:35)
--- NOTE | 2024-06-27 18:58 | PC.NURSE ---
d/t having pacemaker pt unable to have MRI of right foot, per Selena Doe in MRI, pt will need to wait until Sunday or Sunday when pacemaker rep is here, Dr. Almonte made aware
[2024-06-27 20:05] LABS: Glucose, Whole Blood 144 mg/dL (60-115)
[2024-06-27] MEDS: Enoxaparin Sodium 40 MG/0.4 ML SYRINGE SUBCUT (22:45)
[2024-06-27] MEDS: DAPTOmycin 900 MG in 0.9 % Sodium Chloride 50 ML 100 MG IV (22:45)
[2024-06-28 03:19] VITALS: BP 145/78; PULSE 74; RESP 18; TEMP 36.1; O2SAT 96
[2024-06-28 07:26] VITALS: BP 178/89; PULSE 71; RESP 18; TEMP 36.1; O2SAT 96
[2024-06-28 07:31] LABS: Glucose, Whole Blood 150 mg/dL (60-115)
[2024-06-28] MEDS: Aspirin Enteric Coated 81 MG TABLET.DR PO (07:43)
[2024-06-28] MEDS: Acetaminophen 325 MG TABLET 650 MG PO ×2 (07:43→21:29)
[2024-06-28] MEDS: buPROPion HCl XL 150 MG TAB.ER.24H PO (07:44)
[2024-06-28] MEDS: Spironolactone 25 MG TABLET PO (07:44)
[2024-06-28] MEDS: Cholecalciferol (Vitamin D3) 25 MCG TABLET 50 MCG PO (07:44)
[2024-06-28] MEDS: Metoprolol Succinate ER 50 MG TAB.ER.24H PO (07:44)
[2024-06-28] MEDS: 0.9 % Sodium Chloride Flush 3 ML SYRINGE IVFLUSH ×3 (07:46→23:04)
[2024-06-28 08:26] VITALS: BP 135/96; PULSE 70
--- NOTE | 2024-06-28 08:30 | PC.NURSE ---
Addendum entered by Malena Quach RN 06/28/24 08:39: BP recheck 135/96, CROWE subsided, will continue to monitor Original Note: upon assessment this morning patient reported CROWE, BP elevated 178/89, has been elevated on previous shift, patient was given am scheduled medications, and prn tylenol for CROWE. will recheck BP
--- NOTE | 2024-06-28 11:09 | P.PNIM_ITS ---
Subjective Subjective Date of Service: 06/28/24 Interval History: foot inf Review of Systems toe seems similar ,has some pain no fevers Physical Exam 2 Vital Signs: Vital Signs: Last Vital Signs Temp 97 F 06/28/24 07:26 Pulse 70 06/28/24 08:26 Resp 18 06/28/24 07:26 BP 135/96 H 06/28/24 08:26 Pulse Ox 96 06/28/24 07:26 O2 Del Method Room Air 06/28/24 07:26 BMI result Body Mass Index 38.7 Appearance: Alert.? Oriented X3.? cvs: rrr, [id number] . res: clear to auscultation ,no rhonchii or wheezing abd: no rebound or guarding ,nt, bs present. skin;both legs R leg has erythema , on great toe wrapped . neuro: axo3 , nonfocal. Objective Data Active Medications Acetaminophen (Acetaminophen 325 Mg Tablet) 650 mg PO Q6H PRN PRN Reason: Pain, Mild (Pain Scale 1-3), fever or headache Last Admin: 06/28/24 07:43 Dose: 650 mg Documented By: AUGUSTA Albuterol Sulfate (Albuterol Sulfate 90 Mcg 8 Gm Inhaler) 2 puff INHALE Q6H PRN PRN Reason: Wheezing Alprazolam (Alprazolam 0.25 Mg Tablet) 0.75 mg PO BEDTIME [facility] Last Admin: 06/27/24 20:39 Dose: 0.75 mg Documented By: LYSZ Alprazolam (Alprazolam 0.5 Mg Tablet) 0.5 mg PO DAILY PRN PRN Reason: Anxiety Aspirin (Aspirin Enteric Coated 81 Mg Tablet.Dr) 81 mg PO DAILY [facility] Last Admin: 06/28/24 07:43 Dose: 81 mg Documented By: AUGUSTA Bupropion HCl (Bupropion Hcl Xl 150 Mg Tab.Er.24h) 150 mg PO DAILY [facility] Last Admin: 06/28/24 07:44 Dose: 150 mg Documented By: AUGUSTA Calcium Carbonate (Calcium Carbonate 750 Mg Tab.Chew) 750 mg PO Q4H PRN PRN Reason: Heartburn Enoxaparin Sodium (Enoxaparin Sodium 40 Mg/0.4 Ml Syringe) 40 mg SUBCUT Q24H [facility] Last Admin: 06/27/24 22:45 Dose: 40 mg Documented By: MORENO Glucose (Glucose Gel 15 Gm Gel..Gram.) 15 gm PO Q15M PRN; Protocol PRN Reason: per Hypoglycemia Standing Ord. Dextrose (D10) 250 mls @ 750 mls/hr IV Q15M PRN; Protocol PRN Reason: per Hypoglycemia Standing Ord. Daptomycin 900 mg/ Sodium (Chloride) 68 mls @ 100 mls/hr IV Q24H [facility] Last Infusion: 06/27/24 23:26 Dose: Infused Documented By: MORENO Insulin Glargine (Insulin Glargine,Hum.Rec.Anlog 100 Unit/Ml 10 Ml Vial) 35 unit SUBCUT BEDTIME [facility] Last Admin: 06/27/24 20:40 Dose: 35 unit Documented By: MORENO Insulin Human Lispro (Insulin Lispro 100 Unit/Ml 3 Ml Vial) 0 unit SUBCUT QIDACHS [facility]; Protocol Last Admin: 06/28/24 07:32 Dose: Not Given Documented By: AUGUSTA Non-Admin Reason: No Insulin Coverage Magnesium Hydroxide (Milk Of Magnesia 30 Ml Oral.Susp) 30 ml PO DAILY PRN PRN Reason: Constipation Meclizine HCl (Meclizine Hcl 12.5 Mg Tablet) 12.5 mg PO BID PRN PRN Reason: Dizziness Melatonin (Melatonin 3 Mg Tablet) 6 mg PO BEDTIME PRN PRN Reason: Insomnia Metoprolol Succinate (Metoprolol Succinate Er 50 Mg Tab.Er.24h) 50 mg PO DAILY [facility]; Protocol Last Admin: 06/28/24 07:44 Dose: 50 mg Documented By: AUGUSTA Ondansetron HCl (Ondansetron Hcl 4 Mg/2 Ml Vial) 4 mg IVPUSH Q8H PRN PRN Reason: Nausea and Vomiting Sodium Chloride (0.9 % Sodium Chloride Flush 3 Ml Syringe) 3 ml IVFLUSH QSHIFT [facility] Last Admin: 06/28/24 07:46 Dose: 3 ml Documented By: AUGUSTA Spironolactone (Spironolactone 25 Mg Tablet) 25 mg PO DAILY [facility]; Protocol Last Admin: 06/28/24 07:44 Dose: 25 mg Documented By: AUGUSTA Vitamin D (Cholecalciferol (Vitamin D3) 25 Mcg Tablet) 50 mcg PO DAILY [facility] Last Admin: 06/28/24 07:44 Dose: 50 mcg Documented By: AUGUSTA Labs 06/27/24 06:07 06/27/24 06:07 Labs: Laboratory Results - last 24 hr 06/27/24 06/27/24 06/27/24 11:41 16:28 20:00 POC Glucose 137 H 190 H 144 H 06/28/24 07:24 POC Glucose 150 H Microbiology Microbiology Results: Microbiology 06/26/24 20:22 Blood Culture - Preliminary Blood - Venous No growth after 24 hours. 06/26/24 20:22 Blood Culture - Preliminary Blood - Venous No growth after 24 hours. Assessment and Plan (1) Toe ulcer: Status: Acute Plan 68-year-old female with a PMH significant for?HTN, endocarditis s/p valve replacement, insulin-dependent type 2 diabetes, hx of osteo s/p left great toe amputation, CKD 3, ITZEL not on CPAP and anxiety who presents to the ED with?worsening right toe wound. Pt will be admitted to the hospital for treatment and further evaluation of acute right lower extremity cellulitis in the setting of diabetic foot ulcer concerning for osteomyelitis. Right lower leg cellulitis in the setting of great toe diabetic foot ulcer concerning for osteomyelitis LLE with swelling, warmth, erythema X-ray of right foot showed small focal cortical erosion of 1st proximal phalangeal head, concerning for early osteomyelitis ESR 40, CRP mildly elevated at 0.76 MRI of right foot to r/o osteo Pt refuses vancomycin, stating it has not worked in the past, intiated on daptomycin, started 06/27/2024 ID consult,General surgery consult Insulin-dependent type 2 diabetes Sliding-scale insulin, Lantus Diabetic diet HTN Continue metoprolol, spironolactone CKD 3 Creatinine stable Mood disorder Continue bupropion, alprazolam Full Code DVT Prophylaxis: Lovenox ongoing need for hospitalization for treatment of?right lower leg cellulitis in the setting of great toe diabetic foot ulcer concerning for osteomyelitis. Patient will require IV antibiotics and additional workup to rule out osteomyelitis. Quality Stroke Does the patient have a stroke diagnosis?: No VTE Prior VTE?: No VTE Risk Level:: Medical - moderate - high VTE Device Contraindication: Treatment Not Indicated VTE Drug Contraindication: N/A - Med Ordered
[2024-06-28 11:46] LABS: Glucose, Whole Blood 159 mg/dL (60-115)
[2024-06-28] MEDS: Insulin Lispro 100 UNIT/ML 3 ML VIAL SUBCUT ×2 (11:53→21:24)
[2024-06-28 15:53] VITALS: BP 156/67; PULSE 70; RESP 18; TEMP 36.1; O2SAT 97
[2024-06-28 16:19] LABS: Glucose, Whole Blood 148 mg/dL (60-115)
--- NOTE | 2024-06-28 20:09 | PC.NURSE ---
Right great toe diabetic ulcer. Dressing changed just now. Some purulent drainage noted. Area cleaned with saline, pat dry, silver alginate followed with gauze pad and gauze wrap.
[2024-06-28 20:22] LABS: Glucose, Whole Blood 179 mg/dL (60-115)
[2024-06-28 20:24] VITALS: BP 150/80; PULSE 69; RESP 18; TEMP 36.4; O2SAT 98
[2024-06-28] MEDS: ALPRAZolam 0.25 MG TABLET 0.75 MG PO (21:22)
[2024-06-28] MEDS: Insulin Glargine,Hum.rec.anlog 100 UNIT/ML 10 ML VIAL 35 UNIT SUBCUT (21:23)
[2024-06-28] MEDS: DAPTOmycin 900 MG in 0.9 % Sodium Chloride 50 ML 100 MG IV (23:03)
[2024-06-28] MEDS: Enoxaparin Sodium 40 MG/0.4 ML SYRINGE SUBCUT (23:04)
[2024-06-29 03:59] VITALS: BP 138/69; PULSE 69; RESP 16; TEMP 36.4; O2SAT 95
[2024-06-29 07:41] VITALS: BP 143/67; PULSE 70; RESP 18; TEMP 36.1; O2SAT 96
[2024-06-29 07:46] LABS: Glucose, Whole Blood 97 mg/dL (60-115)
[2024-06-29] MEDS: Spironolactone 25 MG TABLET PO (07:55)
[2024-06-29] MEDS: Cholecalciferol (Vitamin D3) 25 MCG TABLET 50 MCG PO (07:55)
[2024-06-29] MEDS: Aspirin Enteric Coated 81 MG TABLET.DR PO (07:55)
[2024-06-29] MEDS: Acetaminophen 325 MG TABLET 650 MG PO (07:55)
[2024-06-29] MEDS: buPROPion HCl XL 150 MG TAB.ER.24H PO (07:55)
[2024-06-29] MEDS: Metoprolol Succinate ER 50 MG TAB.ER.24H PO (07:55)
[2024-06-29] MEDS: 0.9 % Sodium Chloride Flush 3 ML SYRINGE IVFLUSH ×3 (07:56→23:58)
[2024-06-29 09:06] LABS: Anion Gap 12 (12-20); Blood Urea Nitrogen 31 mg/dL (9-16); Calcium 8.5 mg/dL (8.4-10.2); Carbon Dioxide 25 mmol/L (22-29); Chloride 110 mmol/L (96-108); Creatinine Clr Calc Pharmacy 44.5; Estimated Glomerular Filt Rate 29; Glucose Random 117 mg/dL (60-115); Potassium 4.2 mmol/L (3.3-5.1); Sodium 143 mmol/L (135-145)
[2024-06-29 11:44] LABS: Glucose, Whole Blood 186 mg/dL (60-115)
[2024-06-29] MEDS: Insulin Lispro 100 UNIT/ML 3 ML VIAL SUBCUT ×2 (12:30→20:16)
--- NOTE | 2024-06-29 12:54 | HO.PM.IMPN ---
Subjective Subjective Date of Service: 06/29/24 Interval History: foot inf Review of Systems toe seems similar ,has some pain no fevers Physical Exam Vital Signs: Vital Signs: Last Vital Signs Temp 97 F 06/29/24 07:41 Pulse 70 06/29/24 07:41 Resp 18 06/29/24 07:41 BP 143/67 H 06/29/24 07:41 Pulse Ox 96 06/29/24 07:41 O2 Del Method Room Air 06/29/24 07:41 BMI result Body Mass Index 38.7 Appearance: Alert.? Oriented X3.? cvs: rrr, [id number] . res: clear to auscultation ,no rhonchii or wheezing abd: no rebound or guarding ,nt, bs present. skin;both legs R leg has erythema , on great toe wrapped . neuro: axo3 , nonfocal. Objective Data Active Medications Acetaminophen (Acetaminophen 325 Mg Tablet) 650 mg PO Q6H PRN PRN Reason: Pain, Mild (Pain Scale 1-3), fever or headache Last Admin: 06/29/24 07:55 Dose: 650 mg Documented By: MARGOT Albuterol Sulfate (Albuterol Sulfate 90 Mcg 8 Gm Inhaler) 2 puff INHALE Q6H PRN PRN Reason: Wheezing Alprazolam (Alprazolam 0.25 Mg Tablet) 0.75 mg PO BEDTIME [facility] Last Admin: 06/28/24 21:22 Dose: 0.75 mg Documented By: MORENO Alprazolam (Alprazolam 0.5 Mg Tablet) 0.5 mg PO DAILY PRN PRN Reason: Anxiety Aspirin (Aspirin Enteric Coated 81 Mg Tablet.) 81 mg PO DAILY [facility] Last Admin: 06/29/24 07:55 Dose: 81 mg Documented By: MARGOT Bupropion HCl (Bupropion Hcl Xl 150 Mg Tab.Er.24h) 150 mg PO DAILY [facility] Last Admin: 06/29/24 07:55 Dose: 150 mg Documented By: MARGOT Calcium Carbonate (Calcium Carbonate 750 Mg Tab.Chew) 750 mg PO Q4H PRN PRN Reason: Heartburn Enoxaparin Sodium (Enoxaparin Sodium 40 Mg/0.4 Ml Syringe) 40 mg SUBCUT Q24H [facility] Last Admin: 06/28/24 23:04 Dose: 40 mg Documented By: MORENO Glucose (Glucose Gel 15 Gm Gel..Gram.) 15 gm PO Q15M PRN; Protocol PRN Reason: per Hypoglycemia Standing Ord. Dextrose (D10) 250 mls @ 750 mls/hr IV Q15M PRN; Protocol PRN Reason: per Hypoglycemia Standing Ord. Daptomycin 900 mg/ Sodium (Chloride) 68 mls @ 100 mls/hr IV Q24H [facility] Last Infusion: 06/28/24 23:50 Dose: Infused Documented By: MORENO Insulin Glargine (Insulin Glargine,Hum.Rec.Anlog 100 Unit/Ml 10 Ml Vial) 35 unit SUBCUT BEDTIME [facility] Last Admin: 06/28/24 21:23 Dose: 35 unit Documented By: MORENO Insulin Human Lispro (Insulin Lispro 100 Unit/Ml 3 Ml Vial) 0 unit SUBCUT QIDACHS [facility]; Protocol Last Admin: 06/29/24 07:47 Dose: Not Given Documented By: MARGOT Non-Admin Reason: No Insulin Coverage Magnesium Hydroxide (Milk Of Magnesia 30 Ml Oral.Susp) 30 ml PO DAILY PRN PRN Reason: Constipation Meclizine HCl (Meclizine Hcl 12.5 Mg Tablet) 12.5 mg PO BID PRN PRN Reason: Dizziness Melatonin (Melatonin 3 Mg Tablet) 6 mg PO BEDTIME PRN PRN Reason: Insomnia Metoprolol Succinate (Metoprolol Succinate Er 50 Mg Tab.Er.24h) 50 mg PO DAILY [facility]; Protocol Last Admin: 06/29/24 07:55 Dose: 50 mg Documented By: MARGOT Ondansetron HCl (Ondansetron Hcl 4 Mg/2 Ml Vial) 4 mg IVPUSH Q8H PRN PRN Reason: Nausea and Vomiting Sodium Chloride (0.9 % Sodium Chloride Flush 3 Ml Syringe) 3 ml IVFLUSH QSHIFT [facility] Last Admin: 06/29/24 07:56 Dose: 3 ml Documented By: MARGOT Spironolactone (Spironolactone 25 Mg Tablet) 25 mg PO DAILY [facility]; Protocol Last Admin: 06/29/24 07:55 Dose: 25 mg Documented By: MARGOT Vitamin D (Cholecalciferol (Vitamin D3) 25 Mcg Tablet) 50 mcg PO DAILY [facility] Last Admin: 06/29/24 07:55 Dose: 50 mcg Documented By: MARGOT Labs 06/27/24 06:07 06/29/24 08:23 Labs: Laboratory Results - last 24 hr 06/28/24 06/28/24 06/29/24 16:14 20:12 07:39 Anion Gap Estim Creat Clear Calc Estimated GFR POC Glucose 148 H 179 H 97 Random Glucose Calcium Total Creatine Kinase 06/29/24 06/29/24 08:23 11:32 Anion Gap 12 Estim Creat Clear Calc 44.5 Estimated GFR 29 POC Glucose 186 H Random Glucose 117 H Calcium 8.5 Total Creatine Kinase 66 Microbiology Microbiology Results: Microbiology 06/26/24 20:22 Blood Culture - Preliminary Blood - Venous No growth after 48 hours. 06/26/24 20:22 Blood Culture - Preliminary Blood - Venous No growth after 48 hours. Assessment and Plan (1) Toe ulcer: Status: Acute Plan 68-year-old female with a PMH significant for?HTN, endocarditis s/p valve replacement, insulin-dependent type 2 diabetes, hx of osteo s/p left great toe amputation, CKD 3, ITZEL not on CPAP and anxiety who presents to the ED with?worsening right toe wound. Pt will be admitted to the hospital for treatment and further evaluation of acute right lower extremity cellulitis in the setting of diabetic foot ulcer concerning for osteomyelitis. Right lower leg cellulitis in the setting of great toe diabetic foot ulcer concerning for osteomyelitis LLE with swelling, warmth, erythema X-ray of right foot showed small focal cortical erosion of 1st proximal phalangeal head, concerning for early osteomyelitis ESR 40, CRP mildly elevated at 0.76 Pt refuses vancomycin, stating it has not worked in the past, intiated on daptomycin, started 06/27/2024. General surgery consult-toe ulcer as described above with a biofilm as well as fibrinous debris. I had bluntly debrided this with gauze down to what appears to be healthier granulating tissue. ID consult. Insulin-dependent type 2 diabetes Sliding-scale insulin, Lantus Diabetic diet HTN Continue metoprolol, spironolactone CKD 3 Creatinine stable Mood disorder Continue bupropion, alprazolam. Morbid obesity: Encouraged to lose weight and cutdown calories. Full Code DVT Prophylaxis: Lovenox ongoing need for hospitalization for treatment of?right lower leg cellulitis in the setting of great toe diabetic foot ulcer concerning for osteomyelitis. Patient will require IV antibiotics and additional workup to rule out osteomyelitis. Quality Stroke Does the patient have a stroke diagnosis?: No VTE Prior VTE?: No VTE Risk Level:: Medical - moderate - high VTE Device Contraindication: Treatment Not Indicated VTE Drug Contraindication: N/A - Med Ordered
[2024-06-29 15:55] VITALS: BP 160/72; PULSE 70; RESP 18; TEMP 37.1; O2SAT 100
[2024-06-29 16:22] LABS: Glucose, Whole Blood 143 mg/dL (60-115)
[2024-06-29 19:40] VITALS: BP 140/85; PULSE 69; RESP 14; TEMP 36.2; O2SAT 97
[2024-06-29 20:04] LABS: Glucose, Whole Blood 179 mg/dL (60-115)
[2024-06-29] MEDS: Insulin Glargine,Hum.rec.anlog 100 UNIT/ML 10 ML VIAL 35 UNIT SUBCUT (20:15)
[2024-06-29] MEDS: ALPRAZolam 0.25 MG TABLET 0.75 MG PO (20:15)
[2024-06-29] MEDS: DAPTOmycin 900 MG in 0.9 % Sodium Chloride 50 ML 100 MG IV (23:14)
[2024-06-29] MEDS: Enoxaparin Sodium 40 MG/0.4 ML SYRINGE SUBCUT (23:16)
[2024-06-30 03:36] VITALS: BP 163/76; PULSE 69; RESP 16; TEMP 36.5; O2SAT 95
[2024-06-30] MEDS: Acetaminophen 325 MG TABLET 650 MG PO (06:04)
[2024-06-30 07:44] LABS: Glucose, Whole Blood 127 mg/dL (60-115)
[2024-06-30 08:05] VITALS: BP 146/68; PULSE 69
[2024-06-30] MEDS: Metoprolol Succinate ER 50 MG TAB.ER.24H PO (08:05)
[2024-06-30] MEDS: Cholecalciferol (Vitamin D3) 25 MCG TABLET 50 MCG PO (08:06)
[2024-06-30] MEDS: Aspirin Enteric Coated 81 MG TABLET.DR PO (08:07)
[2024-06-30] MEDS: Spironolactone 25 MG TABLET PO (08:07)
[2024-06-30] MEDS: buPROPion HCl XL 150 MG TAB.ER.24H PO (08:07)
[2024-06-30] MEDS: 0.9 % Sodium Chloride Flush 3 ML SYRINGE IVFLUSH ×2 (08:08→16:59)
[2024-06-30] MEDS: ondansetron HCL 4 MG/2 ML VIAL IVPUSH (08:22)
[2024-06-30] MEDS: Meclizine HCl 12.5 MG TABLET PO (08:22)
[2024-06-30 08:27] VITALS: PULSE 70; RESP 18; TEMP 36.1; O2SAT 98
[2024-06-30 11:47] LABS: Glucose, Whole Blood 247 mg/dL (60-115)
[2024-06-30 12:05] VITALS: BP 140/67; PULSE 69; RESP 18; TEMP 36.7; O2SAT 97
[2024-06-30] MEDS: Insulin Lispro 100 UNIT/ML 3 ML VIAL SUBCUT ×3 (12:25→21:48)
--- NOTE | 2024-06-30 13:48 | PC.NURSE ---
called [facility] Iunable to schedule test ,patient has a pacemaker MRI is waiting for response from pacemaker company and cardiology
--- NOTE | 2024-06-30 13:56 | P.PNIM_ITS ---
Subjective Subjective Date of Service: 06/30/24 Interval History: foot cellulitis Review of Systems foot wrapped , no fevers seems similar Physical Exam 2 Vital Signs: Vital Signs: Last Vital Signs Temp 98.0 F 06/30/24 12:05 Pulse 69 06/30/24 12:05 Resp 18 06/30/24 12:05 BP 140/67 H 06/30/24 12:05 Pulse Ox 97 06/30/24 12:05 O2 Del Method Room Air 06/30/24 12:05 BMI result Body Mass Index 38.7 Appearance: Alert.? Oriented X3.? cvs: rrr, [id number] . res: clear to auscultation ,no rhonchii or wheezing abd: no rebound or guarding ,nt, bs present. skin;both legs R leg has erythema , on great toe wrapped . neuro: axo3 , nonfocal. Objective Data Active Medications Acetaminophen (Acetaminophen 325 Mg Tablet) 650 mg PO Q6H PRN PRN Reason: Pain, Mild (Pain Scale 1-3), fever or headache Last Admin: 06/30/24 06:04 Dose: 650 mg Documented By: MAYRA Albuterol Sulfate (Albuterol Sulfate 90 Mcg 8 Gm Inhaler) 2 puff INHALE Q6H PRN PRN Reason: Wheezing Alprazolam (Alprazolam 0.25 Mg Tablet) 0.75 mg PO BEDTIME [facility] Last Admin: 06/29/24 20:15 Dose: 0.75 mg Documented By: MAYRA Alprazolam (Alprazolam 0.5 Mg Tablet) 0.5 mg PO DAILY PRN PRN Reason: Anxiety Aspirin (Aspirin Enteric Coated 81 Mg Tablet.Dr) 81 mg PO DAILY [facility] Last Admin: 06/30/24 08:07 Dose: 81 mg Documented By: LEIDA Bupropion HCl (Bupropion Hcl Xl 150 Mg Tab.Er.24h) 150 mg PO DAILY [facility] Last Admin: 06/30/24 08:07 Dose: 150 mg Documented By: LEIDA Calcium Carbonate (Calcium Carbonate 750 Mg Tab.Chew) 750 mg PO Q4H PRN PRN Reason: Heartburn Enoxaparin Sodium (Enoxaparin Sodium 40 Mg/0.4 Ml Syringe) 40 mg SUBCUT Q24H [facility] Last Admin: 06/29/24 23:16 Dose: 40 mg Documented By: MAYRA Glucose (Glucose Gel 15 Gm Gel..Gram.) 15 gm PO Q15M PRN; Protocol PRN Reason: per Hypoglycemia Standing Ord. Dextrose (D10) 250 mls @ 750 mls/hr IV Q15M PRN; Protocol PRN Reason: per Hypoglycemia Standing Ord. Daptomycin 900 mg/ Sodium (Chloride) 68 mls @ 100 mls/hr IV Q24H [facility] Last Infusion: 06/29/24 23:55 Dose: Infused Documented By: MAYRA Insulin Glargine (Insulin Glargine,Hum.Rec.Anlog 100 Unit/Ml 10 Ml Vial) 35 unit SUBCUT BEDTIME [facility] Last Admin: 06/29/24 20:15 Dose: 35 unit Documented By: MAYRA Insulin Human Lispro (Insulin Lispro 100 Unit/Ml 3 Ml Vial) 0 unit SUBCUT QIDACHS [facility]; Protocol Last Admin: 06/30/24 12:25 Dose: 4 unit Documented By: LEIDA Magnesium Hydroxide (Milk Of Magnesia 30 Ml Oral.Susp) 30 ml PO DAILY PRN PRN Reason: Constipation Meclizine HCl (Meclizine Hcl 12.5 Mg Tablet) 12.5 mg PO BID PRN PRN Reason: Dizziness Last Admin: 06/30/24 08:22 Dose: 12.5 mg Documented By: LEIDA Melatonin (Melatonin 3 Mg Tablet) 6 mg PO BEDTIME PRN PRN Reason: Insomnia Metoprolol Succinate (Metoprolol Succinate Er 50 Mg Tab.Er.24h) 50 mg PO DAILY [facility]; Protocol Last Admin: 06/30/24 08:05 Dose: 50 mg Documented By: LEIDA Ondansetron HCl (Ondansetron Hcl 4 Mg/2 Ml Vial) 4 mg IVPUSH Q8H PRN PRN Reason: Nausea and Vomiting Last Admin: 06/30/24 08:22 Dose: 4 mg Documented By: LEIDA Sodium Chloride (0.9 % Sodium Chloride Flush 3 Ml Syringe) 3 ml IVFLUSH QSHIFT [facility] Last Admin: 06/30/24 08:08 Dose: 3 ml Documented By: LEIDA Spironolactone (Spironolactone 25 Mg Tablet) 25 mg PO DAILY [facility]; Protocol Last Admin: 06/30/24 08:07 Dose: 25 mg Documented By: LEIDA Vitamin D (Cholecalciferol (Vitamin D3) 25 Mcg Tablet) 50 mcg PO DAILY [facility] Last Admin: 06/30/24 08:06 Dose: 50 mcg Documented By: LEIDA Labs 06/27/24 06:07 06/29/24 08:23 Labs: Laboratory Results - last 24 hr 06/29/24 06/29/24 06/30/24 16:16 20:01 07:21 POC Glucose 143 H 179 H 127 H 06/30/24 11:40 POC Glucose 247 H Assessment and Plan (1) Toe ulcer: Status: Acute Plan 68-year-old female with a PMH significant for?HTN, endocarditis s/p valve replacement, insulin-dependent type 2 diabetes, hx of osteo s/p left great toe amputation, CKD 3, ITZEL not on CPAP and anxiety who presents to the ED with?worsening right toe wound. Pt will be admitted to the hospital for treatment and further evaluation of acute right lower extremity cellulitis in the setting of diabetic foot ulcer concerning for osteomyelitis. Right lower leg cellulitis in the setting of great toe diabetic foot ulcer concerning for osteomyelitis LLE with swelling, warmth, erythema X-ray of right foot showed small focal cortical erosion of 1st proximal phalangeal head, concerning for early osteomyelitis ESR 40, CRP mildly elevated at 0.76 Pt refuses vancomycin, stating it has not worked in the past, intiated on daptomycin, started 06/27/2024. General surgery consult-toe ulcer as described above with a biofilm as well as fibrinous debris/ bluntly debrided this with gauze down to what appears to be healthier granulating tissue. ID consult. Insulin-dependent type 2 diabetes Sliding-scale insulin, Lantus Diabetic diet HTN Continue metoprolol, spironolactone CKD 3 Creatinine stable Mood disorder Continue bupropion, alprazolam. Morbid obesity: Encouraged to lose weight and cutdown calories. Full Code DVT Prophylaxis: Lovenox ongoing need for hospitalization for treatment of?right lower leg cellulitis in the setting of great toe diabetic foot ulcer concerning for osteomyelitis. Patient will require IV antibiotics and additional workup to rule out osteomyelitis. Quality Stroke Does the patient have a stroke diagnosis?: No VTE Prior VTE?: No VTE Risk Level:: Medical - moderate - high VTE Device Contraindication: Treatment Not Indicated VTE Drug Contraindication: N/A - Med Ordered
--- NOTE | 2024-06-30 14:43 | MHC.CM.PN ---
Per MD rounds Patient will require 6 weeks IV Dapto. A referral has been sent to [facility]. The ABX is covered 100%. Lola [facility] liason met with the patient for IV ABX education. Jennifer will be in tomorrow for the teach. [facility] has been active in the past. [facility] is the pts preference for [facility]. Clinical information has been sent to both agencies. DP Home with IV ABX. Patient will arrange for transportation home.
--- NOTE | 2024-06-30 15:25 | HO.WOUND ---
Wound Consult: Initial 68yr [place] [facility] [place] See progress notes and H&P for detailed history.? Wound consult placed for Right Great Toe.? Patient agreeable to assessment and photo documentation.? Patient reports her shoe was rubbing in the area that formed a blister ultimatly leading to current wound. She reports she has had for over one month and treats at home with her own supply of durafiber. She is willing to follow up with the wound clinic outpt as she has done in the past. Right Leg Right Toe Etiology: Diabetic Wound??Present on Admission Measurements: 2cm x 2cm x 0.3cm Wound Bed: pale pink with marbled wound bed Drainage / Odor: yellow drainage noted on dressing Edges: epibole ? Lyn wound mild pink erythema - No Induration, Fluctuance or Warmth noted Pain: denies reports neuropathy Goals of Treatment: ?Biofilm disruption with Iodoflex and then switch to Durafiber AG for moisture management Recommendations: 1. Turn and Reposition every 2 hours and as needed for patient comfort.? Use pillows or wedges to support off loading positions. 2. Off Load all bony prominences with use of pillows and heel boots if needed.? Apply Preventative foams where needed. ? 3. Monitor for incontinence and moisture control, use barrier creams when needed for prevention and treatment. 4. Provide adequate and supplemental nutrition.? 5. Order low air loss mattress. 6. When applicable maintain blood glucose levels per Providers order. 7. Right Great Toe - Cleanse with saline, pat dry. ?Apply Iodosorb to wound bed cover with gauze and tape. ?Change every other day to start, note the product will be applied brown and over the course of time as the Betadine is absorbed into the wound bed the color will change to yellow / cream signifying time to replace the product.? Iodoflex left at bedside, once completed patient should swithc to Durafiber to the wound bed and change every other day as well. Recommend follow up out patient Wound Clinic at [address] [place] [id number] and to call for an appointment at time of discharge. [phone].? Re-consult wound care Nurse for wound deterioration or wound changes.
[2024-06-30 16:07] VITALS: BP 143/60; PULSE 69; RESP 18; TEMP 36.2; O2SAT 98
[2024-06-30 16:40] LABS: Glucose, Whole Blood 180 mg/dL (60-115)
[2024-06-30 20:22] LABS: Glucose, Whole Blood 168 mg/dL (60-115)
[2024-06-30] MEDS: ALPRAZolam 0.25 MG TABLET 0.75 MG PO (21:48)
[2024-06-30] MEDS: Insulin Glargine,Hum.rec.anlog 100 UNIT/ML 10 ML VIAL 35 UNIT SUBCUT (21:48)
[2024-06-30] MEDS: DAPTOmycin 900 MG in 0.9 % Sodium Chloride 50 ML 100 MG IV (23:23)
[2024-06-30] MEDS: Enoxaparin Sodium 40 MG/0.4 ML SYRINGE SUBCUT (23:26)
[2024-06-30 23:35] VITALS: BP 161/76; PULSE 70; RESP 18; TEMP 36.7; O2SAT 98
[2024-07-01] MEDS: 0.9 % Sodium Chloride Flush 3 ML SYRINGE IVFLUSH ×4 (00:08→22:10)
[2024-07-01 07:17] LABS: Glucose, Whole Blood 100 mg/dL (60-115)
[2024-07-01 07:41] VITALS: BP 133/62; PULSE 65; RESP 12; TEMP 36.2; O2SAT 97
[2024-07-01] MEDS: buPROPion HCl XL 150 MG TAB.ER.24H PO (09:00)
[2024-07-01] MEDS: Spironolactone 25 MG TABLET PO (09:00)
[2024-07-01] MEDS: Metoprolol Succinate ER 50 MG TAB.ER.24H PO (09:00)
[2024-07-01] MEDS: Aspirin Enteric Coated 81 MG TABLET.DR PO (09:00)
[2024-07-01] MEDS: Cholecalciferol (Vitamin D3) 25 MCG TABLET 50 MCG PO (09:00)
[2024-07-01 11:42] LABS: Glucose, Whole Blood 302 mg/dL (60-115)
--- NOTE | 2024-07-01 11:48 | W.PM.IDCN ---
History of Present Illness Data of Consult Service Date: 07/01/24 Requesting physician: Omar Almonte Primary Care Provider: Remigio Romeo MD HPI Reason for consult: right great toe ulcer She presents with one month right toe lesion dorsal proximal to nail. There is purulence and crusting. She reports started as blister one month ago. She has no fever or chills. She has pacer. She has right foot CT scan shows right great toe erosion dorsal IP joint great toe. She has had endocarditis/sepsis in past. She has been on po Keflex 06/03 for a week. She also has had right third toe amputation after nonhealing. Review of Systems Review of Systems: Yes all other systems are reviewed and are negative PMFSH Past Medical History Medical History Toe ulcer Osteomyelitis Foot ulcer Hx of cardiac pacemaker Surgical History Surgical History S/P aortic valve and mitral valve replacement Social History Social History Household Members Other:: daughter there sometimes Housing: House Do you presently have visiting nurse or other home services: Yes (home health aide) Patient Tobacco Use Status: Never used Tobacco e-Cigarette/Vaping Use: Never Used service: No Meds Allergies Allergy/AdvReac Type Severity Reaction Status Date / Time alcohol Allergy Severe Anaphylaxis Verified 06/26/24 14:55 amlodipine Allergy Intermediate Hives Verified 06/26/24 14:55 insulin detemir Allergy Intermediate rash Verified 06/26/24 14:55 Sulfa (Sulfonamide Allergy Unknown hives Verified 06/26/24 14:55 Antibiotics) Active Medications: Current Medications Acetaminophen (Acetaminophen 325 Mg Tablet) 650 mg PO Q6H PRN PRN Reason: Pain, Mild (Pain Scale 1-3), fever or headache Last Admin: 06/30/24 06:04 Dose: 650 mg Albuterol Sulfate (Albuterol Sulfate 90 Mcg 8 Gm Inhaler) 2 puff INHALE Q6H PRN PRN Reason: Wheezing Alprazolam (Alprazolam 0.25 Mg Tablet) 0.75 mg PO BEDTIME [facility] Last Admin: 06/30/24 21:48 Dose: 0.75 mg Alprazolam (Alprazolam 0.5 Mg Tablet) 0.5 mg PO DAILY PRN PRN Reason: Anxiety Aspirin (Aspirin Enteric Coated 81 Mg Tablet.Dr) 81 mg PO DAILY [facility] Last Admin: 07/01/24 09:00 Dose: 81 mg Bupropion HCl (Bupropion Hcl Xl 150 Mg Tab.Er.24h) 150 mg PO DAILY [facility] Last Admin: 07/01/24 09:00 Dose: 150 mg Calcium Carbonate (Calcium Carbonate 750 Mg Tab.Chew) 750 mg PO Q4H PRN PRN Reason: Heartburn Enoxaparin Sodium (Enoxaparin Sodium 40 Mg/0.4 Ml Syringe) 40 mg SUBCUT Q24H [facility] Last Admin: 06/30/24 23:26 Dose: 40 mg Glucose (Glucose Gel 15 Gm Gel..Gram.) 15 gm PO Q15M PRN; Protocol PRN Reason: per Hypoglycemia Standing Ord. Dextrose (D10) 250 mls @ 750 mls/hr IV Q15M PRN; Protocol PRN Reason: per Hypoglycemia Standing Ord. Daptomycin 900 mg/ Sodium (Chloride) 68 mls @ 100 mls/hr IV Q24H [facility] Last Infusion: 07/01/24 00:04 Dose: Infused Insulin Glargine (Insulin Glargine,Hum.Rec.Anlog 100 Unit/Ml 10 Ml Vial) 35 unit SUBCUT BEDTIME [facility] Last Admin: 06/30/24 21:48 Dose: 35 unit Insulin Human Lispro (Insulin Lispro 100 Unit/Ml 3 Ml Vial) 0 unit SUBCUT QIDACHS [facility]; Protocol Last Admin: 07/01/24 08:59 Dose: Not Given Magnesium Hydroxide (Milk Of Magnesia 30 Ml Oral.Susp) 30 ml PO DAILY PRN PRN Reason: Constipation Meclizine HCl (Meclizine Hcl 12.5 Mg Tablet) 12.5 mg PO BID PRN PRN Reason: Dizziness Last Admin: 06/30/24 08:22 Dose: 12.5 mg Melatonin (Melatonin 3 Mg Tablet) 6 mg PO BEDTIME PRN PRN Reason: Insomnia Metoprolol Succinate (Metoprolol Succinate Er 50 Mg Tab.Er.24h) 50 mg PO DAILY [facility]; Protocol Last Admin: 07/01/24 09:00 Dose: 50 mg Ondansetron HCl (Ondansetron Hcl 4 Mg/2 Ml Vial) 4 mg IVPUSH Q8H PRN PRN Reason: Nausea and Vomiting Last Admin: 06/30/24 08:22 Dose: 4 mg Sodium Chloride (0.9 % Sodium Chloride Flush 3 Ml Syringe) 3 ml IVFLUSH QSHIFT [facility] Last Admin: 07/01/24 09:01 Dose: 3 ml Spironolactone (Spironolactone 25 Mg Tablet) 25 mg PO DAILY [facility]; Protocol Last Admin: 07/01/24 09:00 Dose: 25 mg Vitamin D (Cholecalciferol (Vitamin D3) 25 Mcg Tablet) 50 mcg PO DAILY [facility] Last Admin: 07/01/24 09:00 Dose: 50 mcg Home Medications ?Medication ?Instructions ?Recorded ?Confirmed ?Last Taken ?Type alprazolam 0.5 mg tablet 0.5 - 1 mg PO DAILY PRN Anxiety 03/19/23 06/27/24 Unknown History aspirin 81 mg tablet,delayed 81 mg PO DAILY 03/19/23 06/26/24 06/25/24 History release cholecalciferol (vitamin D3) 50 50 mcg PO DAILY 03/19/23 06/26/24 06/25/24 History mcg (2,000 unit) capsule insulin glargine 100 unit/mL (3 40 unit subcut BEDTIME 03/19/23 06/26/24 06/25/24 History mL) subcutaneous pen (Lantus Solostar U-100 Insulin) insulin lispro 100 unit/mL 30 sliding scale dose subcut TID 03/19/23 06/27/24 06/25/24 History subcutaneous pen (Humalog KwikPen (U-100) Insulin) meclizine 12.5 mg tablet 12.5 mg PO BID PRN Dizziness 03/19/23 06/27/24 Unknown History metoprolol succinate 50 mg 50 mg PO DAILY 03/19/23 06/26/24 06/25/24 History tablet,extended release 24 hr spironolactone 25 mg tablet 25 mg PO DAILY 06/20/23 06/26/24 06/25/24 History albuterol sulfate 90 mcg/actuation 2 puff inhalation Q6H PRN 06/27/24 06/27/24 Unknown History aerosol inhaler (Ventolin HFA) Shortness Of Breath Or Wheezing alprazolam 0.5 mg tablet 0.75 mg PO BEDTIME 06/27/24 06/27/24 06/25/24 History bupropion HCl 150 mg 24 hr tablet, 150 mg PO DAILY 06/27/24 06/27/24 06/25/24 History extended release Physical Exam Vital Signs: Vital Signs: Last Vital Signs Temp 97.1 F 07/01/24 07:41 Pulse 65 07/01/24 07:41 Resp 12 07/01/24 07:41 BP 133/62 07/01/24 07:41 Pulse Ox 97 07/01/24 07:41 O2 Del Method Room Air 07/01/24 07:41 BMI result Body Mass Index 38.7 Const: General: cooperative HEENT: Head: Yes normal to inspection Face and sinus: Yes normal facial exam Mouth: Normal oral and palatal mucosa present Teeth and gingiva: dentition normal Eyes: General: appearance normal, both eyes and all related structures Pupils: Equal, round and reactive pupils present Resp: Effort & Inspection: normal respiratory effort Cardio: Rate: regular rate Rhythm: regular rhythm GI: Palpation (GI): Soft to palpation and nontender : General: Yes no CVA tenderness Back/Spine/Pelvis: Back: no CVA tenderness Skin: General skin exam: no rashes or lesions noted Neuro: General: moves all extremities Cranial nerves: Yes Equal, round and reactive pupils present Extrem: Other: right great toe crusty ulceration pulses intact neuropathy third toe missing Psych: Appearance: grossly normal Results Labs 06/27/24 06:07 06/29/24 08:23 Microbiology Microbiology Results: Microbiology 06/26/24 20:22 Blood - Venous Blood Culture - Preliminary No growth after 48 hours. 06/26/24 20:22 Blood - Venous Blood Culture - Preliminary No growth after 48 hours. Assessment and Plan (1) Osteomyelitis: Qualifiers: Laterality: right Osteomyelitis location: foot Osteomyelitis type: unspecified type Qualified Code(s): M86.9 - Osteomyelitis, unspecified Status: Acute Plan 6 weeks IV Daptomycin with weekly CK and creatinine. Follow me and Wound Clinic Told patient not curative but can help close wound.
[2024-07-01] MEDS: Insulin Lispro 100 UNIT/ML 3 ML VIAL SUBCUT ×2 (12:06→20:38)
--- NOTE | 2024-07-01 13:22 | HO.PM.IMPN ---
Subjective Subjective Date of Service: 07/01/24 Interval History: foot cellulitis Review of Systems seems somewhat improving no fevers Physical Exam Vital Signs: Vital Signs: Last Vital Signs Temp 97.1 F 07/01/24 07:41 Pulse 65 07/01/24 07:41 Resp 12 07/01/24 07:41 BP 133/62 07/01/24 07:41 Pulse Ox 97 07/01/24 07:41 O2 Del Method Room Air 07/01/24 07:41 BMI result Body Mass Index 38.7 Appearance: Alert.? Oriented X3.? cvs: rrr, [id number] . res: clear to auscultation ,no rhonchii or wheezing abd: no rebound or guarding ,nt, bs present. skin;both legs R leg has erythema , on great toe wrapped . neuro: axo3 , nonfocal. Objective Data Active Medications Acetaminophen (Acetaminophen 325 Mg Tablet) 650 mg PO Q6H PRN PRN Reason: Pain, Mild (Pain Scale 1-3), fever or headache Last Admin: 06/30/24 06:04 Dose: 650 mg Documented By: MAYRA Albuterol Sulfate (Albuterol Sulfate 90 Mcg 8 Gm Inhaler) 2 puff INHALE Q6H PRN PRN Reason: Wheezing Alprazolam (Alprazolam 0.25 Mg Tablet) 0.75 mg PO BEDTIME [facility] Last Admin: 06/30/24 21:48 Dose: 0.75 mg Documented By: MAYRA Alprazolam (Alprazolam 0.5 Mg Tablet) 0.5 mg PO DAILY PRN PRN Reason: Anxiety Aspirin (Aspirin Enteric Coated 81 Mg Tablet.Dr) 81 mg PO DAILY [facility] Last Admin: 07/01/24 09:00 Dose: 81 mg Documented By: ELIECER Bupropion HCl (Bupropion Hcl Xl 150 Mg Tab.Er.24h) 150 mg PO DAILY [facility] Last Admin: 07/01/24 09:00 Dose: 150 mg Documented By: ELIECER Calcium Carbonate (Calcium Carbonate 750 Mg Tab.Chew) 750 mg PO Q4H PRN PRN Reason: Heartburn Enoxaparin Sodium (Enoxaparin Sodium 40 Mg/0.4 Ml Syringe) 40 mg SUBCUT Q24H [facility] Last Admin: 06/30/24 23:26 Dose: 40 mg Documented By: MAYRA Glucose (Glucose Gel 15 Gm Gel..Gram.) 15 gm PO Q15M PRN; Protocol PRN Reason: per Hypoglycemia Standing Ord. Dextrose (D10) 250 mls @ 750 mls/hr IV Q15M PRN; Protocol PRN Reason: per Hypoglycemia Standing Ord. Daptomycin 900 mg/ Sodium (Chloride) 68 mls @ 100 mls/hr IV Q24H [facility] Last Infusion: 07/01/24 00:04 Dose: Infused Documented By: MAYRA Insulin Glargine (Insulin Glargine,Hum.Rec.Anlog 100 Unit/Ml 10 Ml Vial) 35 unit SUBCUT BEDTIME [facility] Last Admin: 06/30/24 21:48 Dose: 35 unit Documented By: MAYRA Insulin Human Lispro (Insulin Lispro 100 Unit/Ml 3 Ml Vial) 0 unit SUBCUT QIDACHS [facility]; Protocol Last Admin: 07/01/24 12:06 Dose: 8 unit Documented By: ELIECER Magnesium Hydroxide (Milk Of Magnesia 30 Ml Oral.Susp) 30 ml PO DAILY PRN PRN Reason: Constipation Meclizine HCl (Meclizine Hcl 12.5 Mg Tablet) 12.5 mg PO BID PRN PRN Reason: Dizziness Last Admin: 06/30/24 08:22 Dose: 12.5 mg Documented By: LEIDA Melatonin (Melatonin 3 Mg Tablet) 6 mg PO BEDTIME PRN PRN Reason: Insomnia Metoprolol Succinate (Metoprolol Succinate Er 50 Mg Tab.Er.24h) 50 mg PO DAILY [facility]; Protocol Last Admin: 07/01/24 09:00 Dose: 50 mg Documented By: ELIECER Ondansetron HCl (Ondansetron Hcl 4 Mg/2 Ml Vial) 4 mg IVPUSH Q8H PRN PRN Reason: Nausea and Vomiting Last Admin: 06/30/24 08:22 Dose: 4 mg Documented By: LEIDA Sodium Chloride (0.9 % Sodium Chloride Flush 3 Ml Syringe) 3 ml IVFLUSH QSHIFT [facility] Last Admin: 07/01/24 09:01 Dose: 3 ml Documented By: ELIECER Spironolactone (Spironolactone 25 Mg Tablet) 25 mg PO DAILY [facility]; Protocol Last Admin: 07/01/24 09:00 Dose: 25 mg Documented By: ELIECER Vitamin D (Cholecalciferol (Vitamin D3) 25 Mcg Tablet) 50 mcg PO DAILY [facility] Last Admin: 07/01/24 09:00 Dose: 50 mcg Documented By: ELIECER Labs 06/27/24 06:07 06/29/24 08:23 Labs: Laboratory Results - last 24 hr 06/30/24 06/30/24 07/01/24 16:24 20:12 07:03 POC Glucose 180 H 168 H 100 07/01/24 11:33 POC Glucose 302 H Assessment and Plan (1) Toe ulcer: Status: Acute Plan 68-year-old female with a PMH significant for?HTN, endocarditis s/p valve replacement, insulin-dependent type 2 diabetes, hx of osteo s/p left great toe amputation, CKD 3, ITZEL not on CPAP and anxiety who presents to the ED with?worsening right toe wound. Pt will be admitted to the hospital for treatment and further evaluation of acute right lower extremity cellulitis in the setting of diabetic foot ulcer concerning for osteomyelitis. Right lower leg cellulitis in the setting of great toe diabetic foot ulcer concerning for osteomyelitis LLE erythema improving X-ray of right foot showed small focal cortical erosion of 1st proximal phalangeal head, concerning for early osteomyelitis ESR 40, CRP mildly elevated at 0.76 Pt refuses vancomycin, stating it has not worked in the past, intiated on daptomycin, started 06/27/2024. plan: ct scan of right lower ext /foot-to further evaluate foot area -?osteo. seen by general surgery-toe ulcer as described above with a biofilm as well as fibrinous debris/ bluntly debrided this with gauze down to what appears to be healthier granulating tissue cotninue iv daptomycin Id eval-may need 6 week iv antibiotics . Insulin-dependent type 2 diabetes Sliding-scale insulin, Lantus Diabetic diet HTN Continue metoprolol, spironolactone CKD 3 Creatinine stable Mood disorder Continue bupropion, alprazolam. Morbid obesity: Encouraged to lose weight and cutdown calories. Full Code DVT Prophylaxis: Lovenox ongoing need for hospitalization for treatment of?right lower leg cellulitis in the setting of great toe diabetic foot ulcer concerning for osteomyelitis. Patient will require IV antibiotics and additional workup to rule out osteomyelitis. Quality Stroke Does the patient have a stroke diagnosis?: No VTE Prior VTE?: No VTE Risk Level:: Medical - moderate - high VTE Device Contraindication: Treatment Not Indicated VTE Drug Contraindication: N/A - Med Ordered
--- NOTE | 2024-07-01 14:36 | P.CONNP_ITS ---
History of Present Illness Reason for Consult Consult date: 07/01/24 Chief Complaint Chief complaint: Foot infection History of Present Illness Narrative: Pt is a 68 y/o female with a medical history of CKD4, DMII, HTN, endocarditis s/p valve replacement, hx osteomyelitis with toe amputation, ITZEL, anxiety presented 06/26 with worsening LE wound, sees wound care regularly (for years), but unable to see acutely Nephrology consulted for PICC line clearance for administration of daptomycin for treatment of infection Per chart review, between 20 and 29 from lab work in 2022 and 2023, creatinine ranging from 1.73-2.08 Review of Systems Cardiovascular: Denies chest pain, Reports leg edema (RLE swelling from infection), Denies lightheadedness and Denies dyspnea Respiratory: Denies dyspnea Gastrointestinal: Reports abdominal pain, Denies diarrhea, Denies nausea and Denies vomiting Genitourinary: Denies hematuria, Denies difficulty voiding, Denies dysuria and Denies flank pain Musculoskeletal: Denies arthralgias and Denies muscle cramps Skin/Breast: Denies rash and Reports other (RLE wound) [facility] Past Medical History Medical History Toe ulcer Osteomyelitis Foot ulcer Hx of cardiac pacemaker Surgical History Surgical History S/P aortic valve and mitral valve replacement Social History Social History Household Members Other:: daughter there sometimes Housing: House Do you presently have visiting nurse or other home services: Yes (home health aide) Patient Tobacco Use Status: Never used Tobacco e-Cigarette/Vaping Use: Never Used service: No Meds Allergies Allergy/AdvReac Type Severity Reaction Status Date / Time alcohol Allergy Severe Anaphylaxis Verified 06/26/24 14:55 amlodipine Allergy Intermediate Hives Verified 06/26/24 14:55 insulin detemir Allergy Intermediate rash Verified 06/26/24 14:55 Sulfa (Sulfonamide Allergy Unknown hives Verified 06/26/24 14:55 Antibiotics) Active Medications: Current Medications Acetaminophen (Acetaminophen 325 Mg Tablet) 650 mg PO Q6H PRN PRN Reason: Pain, Mild (Pain Scale 1-3), fever or headache Last Admin: 06/30/24 06:04 Dose: 650 mg Albuterol Sulfate (Albuterol Sulfate 90 Mcg 8 Gm Inhaler) 2 puff INHALE Q6H PRN PRN Reason: Wheezing Alprazolam (Alprazolam 0.25 Mg Tablet) 0.75 mg PO BEDTIME [facility] Last Admin: 06/30/24 21:48 Dose: 0.75 mg Alprazolam (Alprazolam 0.5 Mg Tablet) 0.5 mg PO DAILY PRN PRN Reason: Anxiety Aspirin (Aspirin Enteric Coated 81 Mg Tablet.Dr) 81 mg PO DAILY [facility] Last Admin: 07/01/24 09:00 Dose: 81 mg Bupropion HCl (Bupropion Hcl Xl 150 Mg Tab.Er.24h) 150 mg PO DAILY [facility] Last Admin: 07/01/24 09:00 Dose: 150 mg Calcium Carbonate (Calcium Carbonate 750 Mg Tab.Chew) 750 mg PO Q4H PRN PRN Reason: Heartburn Enoxaparin Sodium (Enoxaparin Sodium 40 Mg/0.4 Ml Syringe) 40 mg SUBCUT Q24H [facility] Last Admin: 06/30/24 23:26 Dose: 40 mg Glucose (Glucose Gel 15 Gm Gel..Gram.) 15 gm PO Q15M PRN; Protocol PRN Reason: per Hypoglycemia Standing Ord. Dextrose (D10) 250 mls @ 750 mls/hr IV Q15M PRN; Protocol PRN Reason: per Hypoglycemia Standing Ord. Daptomycin 900 mg/ Sodium (Chloride) 68 mls @ 100 mls/hr IV Q24H [facility] Last Infusion: 07/01/24 00:04 Dose: Infused Insulin Glargine (Insulin Glargine,Hum.Rec.Anlog 100 Unit/Ml 10 Ml Vial) 35 unit SUBCUT BEDTIME [facility] Last Admin: 06/30/24 21:48 Dose: 35 unit Insulin Human Lispro (Insulin Lispro 100 Unit/Ml 3 Ml Vial) 0 unit SUBCUT QIDACHS [facility]; Protocol Last Admin: 07/01/24 12:06 Dose: 8 unit Magnesium Hydroxide (Milk Of Magnesia 30 Ml Oral.Susp) 30 ml PO DAILY PRN PRN Reason: Constipation Meclizine HCl (Meclizine Hcl 12.5 Mg Tablet) 12.5 mg PO BID PRN PRN Reason: Dizziness Last Admin: 06/30/24 08:22 Dose: 12.5 mg Melatonin (Melatonin 3 Mg Tablet) 6 mg PO BEDTIME PRN PRN Reason: Insomnia Metoprolol Succinate (Metoprolol Succinate Er 50 Mg Tab.Er.24h) 50 mg PO DAILY [facility]; Protocol Last Admin: 07/01/24 09:00 Dose: 50 mg Ondansetron HCl (Ondansetron Hcl 4 Mg/2 Ml Vial) 4 mg IVPUSH Q8H PRN PRN Reason: Nausea and Vomiting Last Admin: 06/30/24 08:22 Dose: 4 mg Sodium Chloride (0.9 % Sodium Chloride Flush 3 Ml Syringe) 3 ml IVFLUSH QSHIFT [facility] Last Admin: 07/01/24 09:01 Dose: 3 ml Spironolactone (Spironolactone 25 Mg Tablet) 25 mg PO DAILY [facility]; Protocol Last Admin: 07/01/24 09:00 Dose: 25 mg Vitamin D (Cholecalciferol (Vitamin D3) 25 Mcg Tablet) 50 mcg PO DAILY [facility] Last Admin: 07/01/24 09:00 Dose: 50 mcg Home Medications ?Medication ?Instructions ?Recorded ?Confirmed ?Last Taken ?Type alprazolam 0.5 mg tablet 0.5 - 1 mg PO DAILY PRN Anxiety 03/19/23 06/27/24 Unknown History aspirin 81 mg tablet,delayed 81 mg PO DAILY 03/19/23 06/26/24 06/25/24 History release cholecalciferol (vitamin D3) 50 50 mcg PO DAILY 03/19/23 06/26/24 06/25/24 History mcg (2,000 unit) capsule insulin glargine 100 unit/mL (3 40 unit subcut BEDTIME 03/19/23 06/26/24 06/25/24 History mL) subcutaneous pen (Lantus Solostar U-100 Insulin) insulin lispro 100 unit/mL 30 sliding scale dose subcut TID 03/19/23 06/27/24 06/25/24 History subcutaneous pen (Humalog KwikPen (U-100) Insulin) meclizine 12.5 mg tablet 12.5 mg PO BID PRN Dizziness 03/19/23 06/27/24 Unknown History metoprolol succinate 50 mg 50 mg PO DAILY 03/19/23 06/26/24 06/25/24 History tablet,extended release 24 hr spironolactone 25 mg tablet 25 mg PO DAILY 06/20/23 06/26/24 06/25/24 History albuterol sulfate 90 mcg/actuation 2 puff inhalation Q6H PRN 06/27/24 06/27/24 Unknown History aerosol inhaler (Ventolin HFA) Shortness Of Breath Or Wheezing alprazolam 0.5 mg tablet 0.75 mg PO BEDTIME 06/27/24 06/27/24 06/25/24 History bupropion HCl 150 mg 24 hr tablet, 150 mg PO DAILY 06/27/24 06/27/24 06/25/24 History extended release Physical Exam Vital Signs: Last Vital Signs Temp 97.1 F 07/01/24 07:41 Pulse 65 07/01/24 07:41 Resp 12 07/01/24 07:41 BP 133/62 07/01/24 07:41 Pulse Ox 97 07/01/24 07:41 O2 Del Method Room Air 07/01/24 07:41 BMI result Body Mass Index 38.7 Const General: comfortable, no acute distress, alert and awake Resp Effort & Inspection: normal respiratory effort and able to speak in complete sentences Auscultation: clear to auscultation bilaterally Cardio Jugular venous distension: no JVD Rate: regular rate Rhythm: regular rhythm Heart sounds: S1 normal heart sound present and S2 normal heart sound present GI Palpation (GI): Soft to palpation and nontender General: Yes no CVA tenderness Back/Spine/Pelvis Back: no CVA tenderness Skin Rashes: no rashes Wounds: wounds noted (RLE wound) Extrem General: Yes edema (RLE edema (RLE wound) ) Results Lab Results 06/27/24 06:07 06/29/24 08:23 Lab results: Chemistry 06/29/24 08:23 Sodium 143 Potassium 4.2 Carbon Dioxide 25 BUN 31 H Creatinine 1.72 H Calcium 8.5 Assessment and Plan (1) CKD (chronic kidney disease) stage 4, GFR 15-29 ml/min: Status: Acute (2) Osteomyelitis: Qualifiers: Laterality: right Osteomyelitis location: foot Osteomyelitis type: u nspecified type Qualified Code(s): M86.9 - Osteomyelitis, unspecified Status: Acute (3) Cellulitis: Qualifiers: Laterality: right Site of cellulitis: extremity Site of cellulitis of extremity: lower extremity Qualified Code(s): L03.115 - Cellulitis of right lower limb Status: Acute Plan CKD stage 4 at baseline Recommend to avoid PICC line insertion as this patient is likely to progress to ESRD and require access for HD Will follow up as needed if additional concerns or questions arise Discussed with Dr Kerns Procedures Date of Service Date of Service: 07/01/24
[2024-07-01 15:11] VITALS: BP 139/77; PULSE 69; RESP 18; TEMP 36; O2SAT 97
[2024-07-01 16:21] LABS: Glucose, Whole Blood 125 mg/dL (60-115)
[2024-07-01 19:24] VITALS: BP 131/70; PULSE 69; RESP 18; TEMP 37.1; O2SAT 97
[2024-07-01 20:07] LABS: Glucose, Whole Blood 224 mg/dL (60-115)
[2024-07-01] MEDS: Insulin Glargine,Hum.rec.anlog 100 UNIT/ML 10 ML VIAL 35 UNIT SUBCUT (20:38)
[2024-07-01] MEDS: ALPRAZolam 0.25 MG TABLET 0.75 MG PO (22:04)
[2024-07-01] MEDS: DAPTOmycin 900 MG in 0.9 % Sodium Chloride 50 ML 100 MG IV (22:04)
[2024-07-01] MEDS: Enoxaparin Sodium 40 MG/0.4 ML SYRINGE SUBCUT (22:04)
[2024-07-02 03:22] VITALS: BP 141/77; PULSE 70; RESP 16; TEMP 36.6; O2SAT 96
[2024-07-02 07:13] VITALS: BP 142/75; PULSE 69; RESP 18; TEMP 36.3; O2SAT 96
[2024-07-02 07:20] LABS: Glucose, Whole Blood 116 mg/dL (60-115)
[2024-07-02] MEDS: 0.9 % Sodium Chloride Flush 3 ML SYRINGE IVFLUSH ×3 (07:21→20:12)
[2024-07-02] MEDS: Cholecalciferol (Vitamin D3) 25 MCG TABLET 50 MCG PO (07:21)
[2024-07-02] MEDS: Spironolactone 25 MG TABLET PO (07:21)
[2024-07-02] MEDS: Metoprolol Succinate ER 50 MG TAB.ER.24H PO (07:21)
[2024-07-02] MEDS: Aspirin Enteric Coated 81 MG TABLET.DR PO (07:22)
[2024-07-02] MEDS: buPROPion HCl XL 150 MG TAB.ER.24H PO (07:22)
[2024-07-02 08:22] LABS: Anion Gap 15 (12-20); Blood Urea Nitrogen 35 mg/dL (9-16); Calcium 9.6 mg/dL (8.4-10.2); Carbon Dioxide 26 mmol/L (22-29); Chloride 108 mmol/L (96-108); Creatinine Clr Calc Pharmacy 37.3; Estimated Glomerular Filt Rate 24; Glucose Random 119 mg/dL (60-115); Potassium 3.8 mmol/L (3.3-5.1); Sodium 145 mmol/L (135-145)
--- NOTE | 2024-07-02 10:10 | P.CDIM_ITS ---
PROVIDER RESPONSE TEXT: To clarify, the appropriate diagnosis supported by the clinical indicators: Non-excisional debridement right toe: Blunt debridement done skin and subcutaneous tissue QUERY TEXT: PHYSICIAN'S DOCUMENTATION REQUEST Date of Query: 07/02/2024 08:08 AM EST Patient Name: Linnea Jones Admit Date: 06/27/2024 Dear Luke Balderas MD, A review of the medical record indicates additional documentation may be needed. Please review below and update the documentation accordingly. Clinical Indicators: General surgery consultation noted dated 06/27 - She had the toe ulcer as described above with a biof ilm as well as fibrinous debris. I had bluntly debrided this with gauze down to what appears to be healthier granulating tissue. Could you provide, in the Progress Notes, further clarification regarding the depth of the debridemen t performed: Non-excisional debridement right toe skin, subcutaneous tissue and fascia, other depth Other depth to the documented debridement Other (explain) Clinically unable to determine (explain) Thank you, Sheela Negrete, CCS, CDIS Use of terms such as suspected, likely, concern for, or probable (associated with a specific diagnosi s that is being evaluated, monitored, or treated as if it exists) are acceptable and can be coded in the inpatient se tting, when documented at the time of discharge. Please use your independent medical judgment in providing your response. THIS QUERY IS PART OF THE PERMANENT MEDICAL RECORD
[2024-07-02 11:03] LABS: Glucose, Whole Blood 240 mg/dL (60-115)
--- NOTE | 2024-07-02 11:35 | HO.WOUND ---
Wound Consult: Follow up 68yr old Female admitted to [facility] on 06/26/24 - See progress notes and H&P for detailed history.? Wound consult follow up for Right Great Toe.?Staff report difficulty understanding dressing change orders. Patient agreeable to assessment and photo documentation.? Patient reports her shoe was rubbing in the area that formed a blister ultimately leading to current wound. She reports she has had for over one month and treats at home with her own supply of durafiber. She is willing to follow up with the wound clinic outpt as she has done in the past. Right Leg is actually noted for decreased swelling overall and decreased redness the left medial calf is noted for maroon pigmentation changes unclear etiology suspect it is part of the cellulitis. Right Toe 06/30/24 Rt Toe 07/02/24 Overall the wound bed is improving - there is more pink wound bed noted - would recommend continue with current course of treatment. No new topical recommendations needed at this time but orders re-written for clairity. Etiology: Diabetic Wound??Present on Admission Measurements: 2cm x 2cm x 0.3cm Wound Bed: pale pink with marbled wound bed Drainage / Odor: yellow drainage noted on dressing Edges: epibole ? Lyn wound mild pink erythema - No Induration, Fluctuance or Warmth noted Pain: denies reports neuropathy Goals of Treatment: ?Biofilm disruption with Iodoflex and then switch to Durafiber AG for moisture management Recommendations: 1. Turn and Reposition every 2 hours and as needed for patient comfort.? Use pillows or wedges to support off loading positions. 2. Off Load all bony prominences with use of pillows and heel boots if needed.? Apply Preventative foams where needed. ? 3. Monitor for incontinence and moisture control, use barrier creams when needed for prevention and treatment. 4. Provide adequate and supplemental nutrition.? 5. Order low air loss mattress. 6. When applicable maintain blood glucose levels per Providers order. 7. Right Great Toe - Elevate Right Leg on pillows be sure to float heels. Cleanse with saline, pat dry. ?Apply Iodosorb / Iodoflex to wound bed cover with gauze and tape. ?Change every other day. Iodoflex left at bedside. Note the Iodoflex will be applied brown and over the course of time as the Iodine is absorbed into the wound bed the color will change to yellow / cream signifying time to replace.? At time of discharge patient should switch to Durafiber to the wound bed and change every other day as well. Recommend follow up out patient Wound Clinic at [address] [place] [id number] and to call for an appointment at time of discharge. [phone].? Re-consult wound care Nurse for wound deterioration or wound changes.
[2024-07-02] MEDS: Insulin Lispro 100 UNIT/ML 3 ML VIAL SUBCUT ×3 (11:39→20:11)
[2024-07-02] MEDS: ondansetron HCL 4 MG/2 ML VIAL IVPUSH (11:39)
--- NOTE | 2024-07-02 14:00 | HO.PM.IMPN ---
Subjective Subjective Date of Service: 07/02/24 Interval History: no fever redness improved Review of Systems Review of Systems: Yes all other systems are reviewed and are negative Physical Exam Vital Signs: Vital Signs: Last Vital Signs Temp 97.3 F 07/02/24 07:13 Pulse 69 07/02/24 07:13 Resp 18 07/02/24 07:13 BP 142/75 H 07/02/24 07:13 Pulse Ox 96 07/02/24 07:13 O2 Del Method Room Air 07/02/24 07:13 BMI result Body Mass Index 38.7 Gen: in no acute distress HEENT: sclera anicteric, moist mucus membranes Neck: supple Lungs: clear to auscultation bilaterally Heart: regular rate and rhythm, no murmurs Abd: soft, non-tender, non-distended Ext: no edema; multiple toe amputations Skin: warm/well-perfused, crusted ulcer of R great toe Neuro: alert and oriented x3, no focal findings Psych: appropriate affect Objective Data Active Medications Acetaminophen (Acetaminophen 325 Mg Tablet) 650 mg PO Q6H PRN PRN Reason: Pain, Mild (Pain Scale 1-3), fever or headache Last Admin: 06/30/24 06:04 Dose: 650 mg Documented By: MAYRA Albuterol Sulfate (Albuterol Sulfate 90 Mcg 8 Gm Inhaler) 2 puff INHALE Q6H PRN PRN Reason: Wheezing Alprazolam (Alprazolam 0.25 Mg Tablet) 0.75 mg PO BEDTIME [facility] Last Admin: 07/01/24 22:04 Dose: 0.75 mg Documented By: CHRISTY Alprazolam (Alprazolam 0.5 Mg Tablet) 0.5 mg PO DAILY PRN PRN Reason: Anxiety Aspirin (Aspirin Enteric Coated 81 Mg Tablet.Dr) 81 mg PO DAILY [facility] Last Admin: 07/02/24 07:22 Dose: 81 mg Documented By: JEANETTE Bupropion HCl (Bupropion Hcl Xl 150 Mg Tab.Er.24h) 150 mg PO DAILY [facility] Last Admin: 07/02/24 07:22 Dose: 150 mg Documented By: JEANETTE Calcium Carbonate (Calcium Carbonate 750 Mg Tab.Chew) 750 mg PO Q4H PRN PRN Reason: Heartburn Enoxaparin Sodium (Enoxaparin Sodium 40 Mg/0.4 Ml Syringe) 40 mg SUBCUT Q24H [facility] Last Admin: 07/01/24 22:04 Dose: 40 mg Documented By: CHRISTY Glucose (Glucose Gel 15 Gm Gel..Gram.) 15 gm PO Q15M PRN; Protocol PRN Reason: per Hypoglycemia Standing Ord. Dextrose (D10) 250 mls @ 750 mls/hr IV Q15M PRN; Protocol PRN Reason: per Hypoglycemia Standing Ord. Daptomycin 900 mg/ Sodium (Chloride) 68 mls @ 100 mls/hr IV Q24H [facility] Last Infusion: 07/01/24 23:01 Dose: Infused Documented By: CHRISTY Insulin Glargine (Insulin Glargine,Hum.Rec.Anlog 100 Unit/Ml 10 Ml Vial) 35 unit SUBCUT BEDTIME [facility] Last Admin: 07/01/24 20:38 Dose: 35 unit Documented By: CHRISTY Insulin Human Lispro (Insulin Lispro 100 Unit/Ml 3 Ml Vial) 0 unit SUBCUT QIDACHS [facility]; Protocol Last Admin: 07/02/24 11:39 Dose: 4 unit Documented By: JEANETTE Magnesium Hydroxide (Milk Of Magnesia 30 Ml Oral.Susp) 30 ml PO DAILY PRN PRN Reason: Constipation Meclizine HCl (Meclizine Hcl 12.5 Mg Tablet) 12.5 mg PO BID PRN PRN Reason: Dizziness Last Admin: 06/30/24 08:22 Dose: 12.5 mg Documented By: LEIDA Melatonin (Melatonin 3 Mg Tablet) 6 mg PO BEDTIME PRN PRN Reason: Insomnia Metoprolol Succinate (Metoprolol Succinate Er 50 Mg Tab.Er.24h) 50 mg PO DAILY [facility]; Protocol Last Admin: 07/02/24 07:21 Dose: 50 mg Documented By: JEANETTE Pt Own ( Desvenlafaxine Er 50 Mg) 1 each PO DAILY [facility] Ondansetron HCl (Ondansetron Hcl 4 Mg/2 Ml Vial) 4 mg IVPUSH Q8H PRN PRN Reason: Nausea and Vomiting Last Admin: 07/02/24 11:39 Dose: 4 mg Documented By: JEANETTE Sodium Chloride (0.9 % Sodium Chloride Flush 3 Ml Syringe) 3 ml IVFLUSH QSHIFT [facility] Last Admin: 07/02/24 07:21 Dose: 3 ml Documented By: JEANETTE Spironolactone (Spironolactone 25 Mg Tablet) 25 mg PO DAILY [facility]; Protocol Last Admin: 07/02/24 07:21 Dose: 25 mg Documented By: JEANETTE Vitamin D (Cholecalciferol (Vitamin D3) 25 Mcg Tablet) 50 mcg PO DAILY [facility] Last Admin: 07/02/24 07:21 Dose: 50 mcg Documented By: JEANETTE Labs 06/27/24 06:07 07/02/24 07:28 Labs: Laboratory Results - last 24 hr 07/01/24 07/01/24 07/02/24 16:12 19:59 07:11 Anion Gap Estim Creat Clear Calc Estimated GFR POC Glucose 125 H 224 H 116 H Random Glucose Calcium 07/02/24 07/02/24 07:28 10:59 Anion Gap 15 Estim Creat Clear Calc 37.3 Estimated GFR 24 POC Glucose 240 H Random Glucose 119 H Calcium 9.6 D Microbiology Microbiology Results: Microbiology 06/26/24 20:22 Blood Culture - Final Blood - Venous No growth after 5 days. 06/26/24 20:22 Blood Culture - Final Blood - Venous No growth after 5 days. Assessment and Plan (1) Toe ulcer: Status: Acute Plan d7 for 68yo F with HTN, endocarditis s/p valve replacement, DM2, hx osteomyelitis s/p L great toe amputation, CKD3, ITZEL not on CPAP, anxiety presented with worsening R great toe wound, found to have osteomyelitis osteomyelitis and cellulitis of R great toe associated with DM2 - on daptomycin since 06/27/24; per ID 6 wk of therapy, to end 08/10/24 - per Nephrology, no PICC given likelihood of eventually needing HD; will order IR port - Gen Surg consulted, biofilm as well as fibrinous debris bluntly debrided with gauze down to granulation tissue 06/27 CKD3 - SCr stable HTN - continue metoprolol succinate + spironolactone DM2 - basal-bolus insulin mood disorder - continue bupropion + alprazolam + desvenlafaxine VTE ppx - enoxaparin dispo - eventual home with [facility] In my clinical judgment, the patient requires continued inpatient hospitalization for the following reasons: IV ABX, long-term venous access Total time managing care of this patient today: 35 minutes. Quality Stroke Does the patient have a stroke diagnosis?: No VTE Prior VTE?: No VTE Risk Level:: Medical - moderate - high VTE Device Contraindication: Treatment Not Indicated VTE Drug Contraindication: N/A - Med Ordered
--- NOTE | 2024-07-02 14:07 | MHC.CM.PN ---
[facility] home infusion Jennifer Andrews performed the teach. Patient did well. A port has been ordered 07/02/24. Once inserted the line info will need to be sent to [facility]. The antibiotic will need to be administered through the port prior to discharge. DP home IV ABX. Patient will arrange for a ride home.
[2024-07-02] MEDS: Acetaminophen 325 MG TABLET 650 MG PO ×2 (14:41→20:40)
[2024-07-02 15:11] VITALS: BP 137/66; PULSE 69; RESP 20; TEMP 36.2; O2SAT 94
[2024-07-02 16:39] LABS: Glucose, Whole Blood 151 mg/dL (60-115)
[2024-07-02 19:22] VITALS: BP 151/77; PULSE 69; RESP 20; TEMP 36.1; O2SAT 95
[2024-07-02 19:50] LABS: Glucose, Whole Blood 206 mg/dL (60-115)
[2024-07-02] MEDS: Insulin Glargine,Hum.rec.anlog 100 UNIT/ML 10 ML VIAL 35 UNIT SUBCUT (20:11)
[2024-07-02] MEDS: DAPTOmycin 900 MG in 0.9 % Sodium Chloride 50 ML 100 MG IV (20:12)
[2024-07-02] MEDS: ALPRAZolam 0.25 MG TABLET 0.75 MG PO (22:13)
[2024-07-02] MEDS: Enoxaparin Sodium 40 MG/0.4 ML SYRINGE SUBCUT (22:13)
[2024-07-03] VITALS (7 sets, daily range): BP systolic 130–176; BP diastolic 64–80; PULSE 69–80; RESP 12–18; TEMP 36–36.2; O2SAT 94–98
[2024-07-03 07:35] LABS: Glucose, Whole Blood 126 mg/dL (60-115)
--- NOTE | 2024-07-03 09:01 | PM.PROC ---
Brief Operative Note Date of procedure: 07/03/24 Pre-op diagnosis: CKD, needs director long term care access for IV antibiotics Post-op diagnosis: same Procedure: Montana placement Right IJ SL 26 cm Montana placed using US and FL. Tip at cavoatrial junction. Ok for use. Anesthesia: local
[2024-07-03] MEDS: 0.9 % Sodium Chloride Flush 3 ML SYRINGE IVFLUSH (09:10)
[2024-07-03] MEDS: DESVENLAFAXINE 50 MG 1 EACH PO (09:10)
[2024-07-03] MEDS: Cholecalciferol (Vitamin D3) 25 MCG TABLET 50 MCG PO (09:10)
[2024-07-03] MEDS: Metoprolol Succinate ER 50 MG TAB.ER.24H PO (09:10)
[2024-07-03] MEDS: Spironolactone 25 MG TABLET PO (09:10)
[2024-07-03] MEDS: buPROPion HCl XL 150 MG TAB.ER.24H PO (09:10)
[2024-07-03] MEDS: Aspirin Enteric Coated 81 MG TABLET.DR PO (09:10)
--- NOTE | 2024-07-03 10:31 | W.MHC.F2F ---
Service Date Service Date: 07/03/24 Encounter Date of encounter: 07/03/24 Reasons for Services Signs and symptoms assessed: osteomyelitis toe wound Reason for group home: wound care, administration of IV, SQ, or IM injection, central line care, diabetic teaching, medication management, medication treatment and teach disease management Reason for physical therapy: home safety and mobility, therapeutic exercises, gait/transfer training, assess need for DME, ADL training and energy conservation MD Overseeing Care: Remigio Romeo Homebound: Leaving the home is medically contraindicated at this time without the asist of a device and/or another person due th the listed conditions above and below. Reason homebound: unsteady gait / fall risk, immunosuppression / infection risk and weakness related to hospital stay Certification: Based on the above findings, I certify that this patient is confined to the home and needs intermittent group home care, physical therapy and/or speech therapy, or continues to need occupational therapy. The patient is under my care, and I have initiated the establishment of the plan of care. The patient will be followed by a physician who will periodically review the plan of care. Time Spent With Patient Time: Total time managing care of this patient today ____ minutes.
--- NOTE | 2024-07-03 10:38 | P.DS_ITS ---
DS: Providers Provider Date of Service: 07/03/24 Date of admission: 06/26/24 22:25 Date of discharge: 07/03/24 Primary care physician: Remigio Romeo MD Consults: 06/26/24 22:23 Consult to Infectious Diseases Routine Consulting Provider: ETHEL MARTINEZ Reason for consultation: ?OSTEO 06/26/24 23:50 Consult to General Surgery Routine Consulting Provider: [facility] Reason for consultation: Right great toe wound, ?osteo 06/27/24 08:58 Consult to Wound Care Routine Reason for consultation: leg wound 06/30/24 14:16 Consult to Infectious Diseases Routine Consulting Provider: [facility] Reason for consultation: foot cellulitis Has provider been notified: No 07/01/24 13:53 Consult to Nephrology Routine Consulting Provider: [facility] Reason for consultation: ckd ,need picc line/dapto 6weeks Has provider been notified: No DS: Diagnosis Discharge Diagnosis (1) Toe ulcer: Status: Acute (2) Diabetic foot ulcer: Status: Acute (3) Diabetic osteomyelitis: Status: Acute (4) Cellulitis in diabetic foot: Status: Acute (5) CKD stage 3 due to type 2 diabetes mellitus: Status: Acute DS: Summary Hospital Course Hospital Course: From the history and physical by the admitting hospitalist, LISET Jacinto, 06/26/24: Pt is a 68-year-old female with a PMH significant for?HTN, endocarditis s/p valve replacement, insulin-dependent type 2 diabetes, hx of osteo s/p left great toe amputation, CKD 3, ITZEL not on CPAP and anxiety who presents to the ED with?worsening right toe wound. Patient reports she has a long history of toe infections, and has been seen [facility] for many years. States on 06/01 patient was taking a shower when the skin on her right great toe ?loosened up and sloughed off revealing a ?dome shaped blister?. Patient also experienced bilateral lower leg swelling and presented to [facility] on 06/01 where she was unable to receive an ultrasound but was discharged on a 1 week course of cephalexin. Patient was eventually able to get her ultrasound at [facility] in [place] which was negative for DVT. Despite being on oral antibiotics patient's wound continued to worsened, and patient's right lower extremity became swollen, red, and warm. Was unsuccessful at getting appointment with either PCP or Wound Care, and presented today to the ED for further evaluation. Denies any other acute medical complaints. Patient with peripheral neuropathy and denies lower extremity pain. No fever or chills. Denies shortness or breath or difficulty breathing. No chest pain/pressure, palpitations. Denies nausea, vomiting, abdominal pain. Of note, patient does not want to be treated with vancomycin as she reports it has never worked for her before. Has been on daptomycin in the past. In the ED pt was tachycardic up to 108 and hypertensive up to 214/108. Labs were significant for ESR 40 and mildly elevated CRP 0.76, otherwise grossly unremarkable. No leukocytosis. Stable H&H. No significant electrolyte abnormalities. Renal function baseline at 1.73. Hepatic function WNL. Lactic acid WNL at 1.9. X-ray of right foot showed small focal cortical erosion of 1st proximal phalangeal head, concerning for early osteomyelitis. Pt was treated with daptomycin and Zosyn. Pt will be admitted to the hospital for treatment and further evaluation of acute right lower extremity cellulitis in the setting of diabetic foot ulcer concerning for osteomyelitis. 68yo F with HTN, endocarditis s/p valve replacement, DM2, hx osteomyelitis s/p L great toe amputation, CKD3, ITZEL not on CPAP, and anxiety who presented with a worsening R great toe wound and was found to have osteomyelitis for which she was admitted to the medical-surgical unit. General Surgery was consulted, and the biofilm as well as fibrinous debris bluntly debrided with gauze down to granulation tissue on 06/27/24. She was treated with IV daptomycin in consultation with Infectious Disease. Due to longstanding CKD3 and possibility of eventually progressing to dialysis dependence, Nephrology recommended against a PICC line. A [place] catheter was placed on 07/03/24. She was discharged home with VNA services for daptomycin infusion [end date 08/10/24] and wound care as recommended by the monogram technician. She will need follow-up with Primary Care, Infectious Disease, and Wound Care. Time Attestation Discharge Coordination Time (in mins): 45 Quality: Safe Use of Opioids Does Pt have an Active Cancer Diagnosis on the Problem List?: No Quality: Stroke Does the patient have a stroke diagnosis?: No Physical Exam Vital Signs: Vital Signs: Last Vital Signs Temp 97.0 F 07/03/24 09:07 Pulse 80 07/03/24 09:07 Resp 16 07/03/24 09:07 BP 135/67 07/03/24 09:07 Pulse Ox 94 07/03/24 09:07 O2 Del Method Room Air 07/03/24 09:07 BMI result Body Mass Index 38.7 Gen: in no acute distress HEENT: sclera anicteric, moist mucus membranes Neck: supple, [place] catheter R IJ Lungs: clear to auscultation bilaterally Heart: regular rate and rhythm, no murmurs Abd: soft, non-tender, non-distended Ext: no edema; multiple toe amputations Skin: warm/well-perfused, crusted ulcer on dorsum of R great toe Neuro: alert and oriented x3, no focal findings Psych: appropriate affect DS: Data Data Completed and Pending Completed studies during hospitalization [Text1]: Laboratory Results WBC 9.1 X10*3/uL (4.8-10.8) 06/27/24 06:07 RBC 4.14 X10*6/uL (4.20-5.50) L 06/27/24 06:07 Hgb 12.7 g/dl (12.0-16.0) 06/27/24 06:07 Hct 38.4 % (37.0-47.0) 06/27/24 06:07 MCV 92.8 fL (80.0-98.0) 06/27/24 06:07 MCH 30.7 pg (27.0-33.0) 06/27/24 06:07 MCHC 33.1 g/dl (31.0-35.0) 06/27/24 06:07 RDW 13.1 % (11.0-16.0) 06/27/24 06:07 Plt Count 197 X10*3/uL (160-400) 06/27/24 06:07 MPV 9.5 fL (9.4-12.3) 06/27/24 06:07 Immature Gran % (Auto) 0.2 % (0.0-0.4) 06/27/24 06:07 Neut % (Auto) 54.0 % (45-73) 06/27/24 06:07 Lymph % (Auto) 34.9 % (20-40) 06/27/24 06:07 Murray % (Auto) 8.0 % (2-11) 06/27/24 06:07 Eos % (Auto) 2.1 % (0-4) 06/27/24 06:07 Baso % (Auto) 0.8 % (0-2) 06/27/24 06:07 Lymph # (Auto) 3.2 X10*3/uL (1.2-4.9) 06/27/24 06:07 Murray # (Auto) 0.7 X10*3/uL (0.1-1.2) 06/27/24 06:07 Eos # (Auto) 0.2 X10*3/uL (0.0-0.4) 06/27/24 06:07 Baso # (Auto) 0.1 X10*3/uL (0.0-0.2) 06/27/24 06:07 Abs Immat Gran (auto) 0.02 X10*3/uL (0.00-0.03) 06/27/24 06:07 Absolute Neuts (auto) 4.9 x10*3/uL (2.0-8.3) 06/27/24 06:07 Absolute Nucleated RBC 0.000 X10*3/uL (0.0-0.012) 06/27/24 06:07 Nucleated RBC % (auto) 0.0 /100WBC (0.0-0.2) 06/27/24 06:07 ESR 40 MM/HR (0-20) H 06/26/24 20:22 Sodium 145 mmol/L (135-145) 07/02/24 07:28 Potassium 3.8 mmol/L (3.3-5.1) 07/02/24 07:28 Chloride 108 mmol/L (96-108) 07/02/24 07:28 Carbon Dioxide 26 mmol/L (22-29) 07/02/24 07:28 Anion Gap 15 (12-20) 07/02/24 07:28 BUN 35 mg/dL (9-16) H 07/02/24 07:28 Creatinine 2.02 mg/dL (0.5-1.4) H 07/02/24 07:28 Estim Creat Clear Calc 37.3 07/02/24 07:28 Estimated GFR 24 07/02/24 07:28 POC Glucose 126 mg/dL (60-115) H 07/03/24 07:30 Random Glucose 119 mg/dL (60-115) H 07/02/24 07:28 Lactic Acid 1.9 mmol/L (0.5-2.0) 06/26/24 20:22 Calcium 9.6 mg/dL (8.4-10.2) D 07/02/24 07:28 Total Bilirubin 0.4 mg/dL (0.0-1.0) 06/26/24 15:44 Direct Bilirubin 0.2 mg/dL (0.0-0.5) 06/26/24 15:44 AST 27 U/L (5-31) 06/26/24 15:44 ALT 22 U/L (0-31) 06/26/24 15:44 Alkaline Phosphatase 88 U/L (39-117) 06/26/24 15:44 Total Creatine Kinase 66 U/L (26-140) 06/29/24 08:23 C-Reactive Protein 0.76 mg/dL (< or = 0.50) H 06/26/24 15:44 Total Protein 6.9 g/dL (6.5-8.0) 06/26/24 15:44 Albumin 3.6 g/dL (3.5-5.0) 06/26/24 15:44 Impressions Foot X-Ray 06/26/24 15:15 IMPRESSION: 1. Probable soft tissue wound overlying the 1st interphalangeal joint, without radiopaque calcification or abnormal soft tissue calcification. Small focal cortical erosion within the 1st proximal phalangeal head, in the region of the wound, concerning for early osteomyelitis. 2. 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 Electronically signed by: Joaquin Wall MD 06/26/2024 05:12 PM [facility] Foot CT 07/01/24 09:41 IMPRESSION: 1. Suspect small superficial defect/ulceration along the dorsal aspect of the IP joint of the great toe. A small cortical lucency deep to this suspected ulceration is suspicious for erosion corresponding to the medial lucency noted on radiographs. This remains suspicious for osteomyelitis in the appropriate clinical scenario and if indeed there is an overlying ulcer. Possible minimal edema and/or cellulitis in the surrounding soft tissues. 2. Generalized increased density in the subcutaneous soft tissues in the great toe compatible with edema and/or cellulitis. 3. Prominent hallux valgus with [id number]-[id number] osteoarthritis of the joint. 4. Ezhn-cw-zodcvcfz osteoarthritis of the 2nd and 3rd tarsometatarsal joints. 5. Prominent flexion deformities at the PIP joints of the 2nd through 5th digits. 6. Chondrocalcinosis of the talocrural joint. 7. Atrophy and fatty infiltration throughout the muscles of the foot which can be seen with denervation myositis. Electronically signed by: Sterling Gunn MD 07/01/2024 11:25 AM [facility] Discharge Plan Discharge Anticipated Discharge Date/Time: 07/03/24 10:33 Patient Disposition: Home Health Service Discharge Diagnosis: diabetic osteomyelitis/cellulitis diabetic foot ulcer CKD stage 3 Referrals: [facility] [Other] - 1 Week ([facility] will deliver [facility]) [facility] [Outside] - 1 Day ([facility] will call you to schedule nursing visits) Ethel Martinez MD [Physician] - 2 Weeks Remigio Delgado MD [Primary Care Provider] - 1 Week Discharge Medications: New daptomycin 500 mg recon soln 900 mg IV Q24H Rx Instructions: administer over 30 mins Continued alprazolam 0.5 mg tablet 0.75 mg PO BEDTIME bupropion HCl 150 mg tablet extended release 24 hr 150 mg PO DAILY albuterol sulfate [Ventolin HFA] 90 mcg/actuation Hfa Aerosol Inhaler 2 puff INHALATION Q6H PRN (Reason: Shortness Of Breath Or Wheezing) desvenlafaxine succinate 50 mg tablet extended release 24 hr 50 mg PO DAILY acetaminophen [Tylenol Arthritis Pain] 650 mg tablet extended release 650 mg PO Q8H PRN (Reason: pain) Qty: 90 3RF metoprolol succinate 50 mg tablet extended release 24 hr 50 mg PO DAILY aspirin 81 mg tablet,delayed release (DR/EC) 81 mg PO DAILY cholecalciferol (vitamin D3) 50 mcg (2,000 unit) capsule 50 mcg PO DAILY alprazolam 0.5 mg tablet 0.5 - 1 mg PO DAILY PRN (Reason: Anxiety) insulin glargine [Lantus Solostar U-100 Insulin] 100 unit/mL (3 mL) insulin pen 40 unit subcut BEDTIME insulin lispro [Humalog KwikPen Insulin] 100 unit/mL insulin pen 30 sliding scale dose subcut TID Protocol: Insulin Correction Scale Less than or equal to 110 ---- Give (units): 0 111 to 150 Give (units): 0 151 to 200 Give (units): 2 201 to 250 Give (units): 4 251 to 300 Give (units): 6 301 to 350 Give (units): 8 Greater than 350 Give (units): 10 Call MD if Blood Glucose > : 350 meclizine 12.5 mg tablet 12.5 mg PO BID PRN (Reason: Dizziness) spironolactone 25 mg tablet 25 mg PO DAILY Discharge Orders: Discharge Order (Routine); Ordered 07/03/24 Ordered By: Elena Fan Diet: Diabetic diet Activity on Discharge: As tolerated Stand Alone Forms: Patient Portal Discharge page Print Language: Estonian Care Plan Goals: cure of infection Health Concerns: diabetic osteomyelitis/cellulitis diabetic foot ulcer CKD stage 3 Plan of Treatment: daptomycin 900 mg IV daily via [place] until 08/10/24; weekly CPK and SCr while on daptomycin; follow up with [facility] Interventional Radiology to remove Montana afterwards follow up with Dr Martinez from [facility] Infectious Disease in 2 weeks Topical Wound Care Recommendations: Right Great Toe - Cleanse with saline, pat dry. ?Apply skin prep to periwound, apply Durafiber AG to wound bed, cover with dry gauze and wrap. Change every other day. Recommend follow up out patient Wound Clinic at [address] [place] [id number] and to call for an appointment at time of discharge. [phone].? Please follow up with your primary care doctor within 1 week. Return to the hospital if you experience recurrent or worsening symptoms. Assessment: See Discharge Summary.
--- NOTE | 2024-07-03 10:41 | MHC.CM.PN ---
Addendum entered by Graciela Christensen RN 07/03/24 10:55: Referral faxed to [facility] W[facility] Original Note: Per MD rounds patient medically cleared for dc home w/ 6wks IV dapto. [facility] will provide IV abx and [facility] will provide nursing services. Patient's car is in [facility] lot and she prefers to transport self home, RN aware and agreeable. Cleared by PT. IMM delivered.
[2024-07-03 11:09] LABS: Glucose, Whole Blood 211 mg/dL (60-115)
[2024-07-03] MEDS: DAPTOmycin 900 MG in 0.9 % Sodium Chloride 50 ML 100 MG IV (11:36)
[2024-07-03] MEDS: Heparin Sodium,Porcine Flush 50 UNITS, 0.9 % Sodium Chloride Flush 5 ML IVFLUSH (12:46)
[2024-07-03] MEDS: Insulin Lispro 100 UNIT/ML 3 ML VIAL SUBCUT (12:46)
--- NOTE | 2024-07-09 17:57 | P.CDIM_ITS ---
PROVIDER RESPONSE TEXT: To clarify, the appropriate diagnosis supported by the clinical indicators: Acute osteomyelitis QUERY TEXT: PHYSICIAN'S DOCUMENTATION REQUEST Date of Query: 07/03/2024 08:01 AM EST Patient Name: Linnea Jones Admit Date: 06/27/2024 Dear Elena Fan MD, A review of the medical record indicates additional documentation may be needed. Please review below and update the documentation accordingly. Clinical Indicators: Progress notes within the Plan: Osteomyelitis and cellulitis of R great toe associated with DM2. Daptomycin since 06/27/24, per ID 6 weeks of therapy. Based on the above, please clarify in the Progress Notes further specificity regarding the acuity of the noted Osteomyelitis right foot/toe within the body of your written Plan: Acute osteomyelitis Subacute osteomyelitis Chronic osteomyelitis Other (explain) Clinically unable to determine (explain) Thank you, Sheela Negrete, CCS, CDIS Use of terms such as suspected, likely, concern for, or probable (associated with a specific diagnosi s that is being evaluated, monitored, or treated as if it exists) are acceptable and can be coded in the inpatient se tting, when documented at the time of discharge. Please use your independent medical judgment in providing your response. THIS QUERY IS PART OF THE PERMANENT MEDICAL RECORD
--- NOTE | 2024-07-09 17:57 | P.CDIM_ITS ---
PROVIDER RESPONSE TEXT: To clarify, the appropriate diagnosis supported by the clinical indicators: Chronic kidney disease (CKD) Stage 3 QUERY TEXT: PHYSICIAN'S DOCUMENTATION REQUEST Date of Query: 07/03/2024 08:07 AM EST Patient Name: Linnea Jones Admit Date: 06/27/2024 Dear Elena Fan MD, A review of the medical record indicates additional documentation may be needed. Please review below and update the documentation accordingly. Clinical Indicators: Nephrology consultation note dated 07/01 - Plan: CKD stage 4 at baseline. Recommend to avoid PICC line insertion as this patient as this patient is likely to progress to ESRD and require access for HD. Progress notes within the Plan: CKD 3 SCr stable. Consistency and clarity of documented Stage of the CKD within the medical record: Chronic kidney disease (CKD) Stage 3 Chronic kidney disease (CKD) Stage 4 Other (explain) Clinically unable to determine (explain) Thank you, Sheela Negrete, CCS, CDIS Use of terms such as suspected, likely, concern for, or probable (associated with a specific diagnosi s that is being evaluated, monitored, or treated as if it exists) are acceptable and can be coded in the inpatient se tting, when documented at the time of discharge. Please use your independent medical judgment in providing your response. THIS QUERY IS PART OF THE PERMANENT MEDICAL RECORD
== END 2024-07-03 14:44 | disposition home health service (06) | DRG 982 ==
LOC: HO.ED 22:01 → HO.EDOVER 22:38 → HO.S3 06-27 08:20
PROVIDERS: Internal Medicine; Physician Assistant; Physician Assistant Surgical; Admitting Provider Student in an Organized Health Care Education/Training Program; Emergency Provider Emergency Medicine; PCP Family Medicine; Visit Provider Family Medicine
DX: E11.621 Type 2 diabetes mellitus with foot ulcer (principal); L03.115 Cellulitis of right lower limb; M86.171 Other acute osteomyelitis, right ankle and foot; I12.9 Hypertensive chronic kidney disease with stage 1 through stage 4 chronic kidney disease, or unspecified chronic kidney disease; E11.69 Type 2 diabetes mellitus with other specified complication; G47.33 Obstructive sleep apnea (adult) (pediatric); F39 Unspecified mood [affective] disorder; N18.30 Chronic kidney disease, stage 3 unspecified; E66.01 Morbid (severe) obesity due to excess calories; E11.628 Type 2 diabetes mellitus with other skin complications; Z68.38 Body mass index [BMI] 38.0-38.9, adult; Z71.3 Dietary counseling and surveillance; E11.22 Type 2 diabetes mellitus with diabetic chronic kidney disease; Z95.2 Presence of prosthetic heart valve; Z95.0 Presence of cardiac pacemaker; Z79.4 Long term (current) use of insulin; Z79.899 Other long term (current) drug therapy
CPT/HCPCS: 36415; 36558; 73620; 73700; 76937; 80048; 80076; 82550; 82947; 83605; 85025; 85652; 86140; 87040; 97161; 99285; C1751; C1769; J0878; J1642; J1650; J2405; J2543

== ENCOUNTER 2024-06-26 22:25 | Outpatient (BNV) | payer MEDICARE, SELFPAY | END 2024-07-03 08:00 | PROVIDERS: Admitting Provider Student in an Organized Health Care Education/Training Program; Emergency Provider Emergency Medicine; PCP Family Medicine; Visit Provider Physician Assistant Surgical | DX: L97.509 Non-pressure chronic ulcer of other part of unspecified foot with unspecified severity (principal); M86.9 Osteomyelitis, unspecified; L03.115 Cellulitis of right lower limb | CPT/HCPCS: 36558; 76937; 77001 ==

== ENCOUNTER → 2024-06-26 22:25 | Outpatient (BNV) | payer MEDICARE, SELFPAY | PROVIDERS: Admitting Provider Student in an Organized Health Care Education/Training Program; Emergency Provider Emergency Medicine; PCP Family Medicine; Visit Provider Nurse Practitioner Family | DX: N18.4 Chronic kidney disease, stage 4 (severe) (principal); M86.9 Osteomyelitis, unspecified; L03.115 Cellulitis of right lower limb | CPT/HCPCS: 99221 ==

== ENCOUNTER → 2024-06-26 22:25 | Outpatient (BNV) | payer MEDICARE, SELFPAY | PROVIDERS: Admitting Provider Student in an Organized Health Care Education/Training Program; Emergency Provider Emergency Medicine; PCP Family Medicine; Visit Provider Internal Medicine | DX: M86.9 Osteomyelitis, unspecified (principal) | CPT/HCPCS: 99222 ==

== ENCOUNTER → 2024-06-26 22:25 | Outpatient (BNV) | payer MEDICARE, SELFPAY | PROVIDERS: Admitting Provider Student in an Organized Health Care Education/Training Program; Emergency Provider Emergency Medicine; PCP Family Medicine; Visit Provider Surgery | DX: L97.509 Non-pressure chronic ulcer of other part of unspecified foot with unspecified severity (principal) | CPT/HCPCS: 99222 ==

== ENCOUNTER → 2024-06-26 22:25 | Outpatient (BNV) | payer MEDICARE, SELFPAY | PROVIDERS: Admitting Provider Student in an Organized Health Care Education/Training Program; Emergency Provider Emergency Medicine; PCP Family Medicine; Visit Provider Student in an Organized Health Care Education/Training Program | DX: E11.621 Type 2 diabetes mellitus with foot ulcer (principal); L97.519 Non-pressure chronic ulcer of other part of right foot with unspecified severity; E11.69 Type 2 diabetes mellitus with other specified complication; M86.9 Osteomyelitis, unspecified | CPT/HCPCS: 99223; 99232; 99239; G0180 ==

== ENCOUNTER 2024-07-16 14:49 | Outpatient (AMB) | payer MEDICARE, SELFPAY ==
--- NOTE | 2024-07-16 14:58 | A.OFFVIS_ITS ---
Vital Signs 3 07/16/24 15:07 Weight 275 lb Pulse 85 Pulse Source Pulse Oximeter Pulse Oximetry (%) 98 Oxygen Delivery Method Room Air Intake Visit Reasons: hmc reff toe ulcer pic dapto Allergies alcohol Allergy (Severe, Verified 07/22/24 14:49) Anaphylaxis amlodipine Allergy (Intermediate, Verified 07/22/24 14:49) Hives insulin detemir Allergy (Intermediate, Verified 07/22/24 14:49) rash Sulfa (Sulfonamide Antibiotics) Allergy (Unknown, Verified 07/22/24 14:49) hives HPI HPI hmc reff toe ulcer pic dapto: Details: She has right great toe ulcer. She takes six weeks IV Daptomycin. She finishes antibiotics 08/10 [place]. Doxycycline doesnt work for her. [facility] Medical History CKD (chronic kidney disease) stage 4, GFR 15-29 ml/min Toe ulcer Osteomyelitis Foot ulcer Hx of cardiac pacemaker Surgical History S/P aortic valve and mitral valve replacement Social History Household Members Other:: daughter there sometimes Housing: House Do you presently have visiting nurse or other home services: Yes (home health aide) Patient Tobacco Use Status: Never used Tobacco e-Cigarette/Vaping Use: Never Used service: No Review of Systems Const All systems reviewed & are unremarkable except as noted in HPI and below Physical Exam Vital Signs: Last Vital Signs Pulse 85 07/16/24 15:07 Pulse Ox 98 07/16/24 15:07 Oxygen Delivery Method Room Air 07/16/24 15:07 Const Other: General: cooperative Orientation/consciousness: patient oriented x3 HEENT Head: Yes normal to inspection Mouth: Normal oral and palatal mucosa present Eyes General: appearance normal, both eyes and all related structures Pupils: Equal, round and reactive pupils present Resp Effort & Inspection: normal respiratory effort Cardio Rate: regular rate Rhythm: regular rhythm GI Palpation (GI): Soft to palpation and nontender General: Yes no CVA tenderness Back/Spine/Pelvis Back: no CVA tenderness Skin General skin exam: no rashes or lesions noted Neuro General: patient oriented x3 Cranial nerves: Yes CN's II-XII intact bilaterally and Yes Equal, round and reactive pupils present Extrem General: Yes normal to inspection Psych Appearance: grossly normal Assessment & Plan Assessment & Plan (1) Diabetic foot ulcer: Comment: She is doing well. Stop antibiotics on 08/10. Wound Care. See prn need. Code(s): E11.621 - Type 2 diabetes mellitus with foot ulcer; L97.509 - Non-pressure chronic ulcer of other part of unspecified foot with unspecified severity Category: Medical Plan: as above Orders: Orders 2 IR cvc remove any age 1207/16/24 E11.621 - Type 2 diabetes mellitus with foot ulcer, L97.509 - Non-pressure chronic ulcer of other part of unspecified foot with unspecified severity Coding Level of Care Code Est Pt Level 3 (13206) Diagnoses Diabetic foot ulcer E11.621; L97.509
[2024-07-16 15:07] VITALS: PULSE 85; O2SAT 98
--- OUTSIDE RECORDS SUMMARY | 2024-07-22 20:54 | XMS_ITS | Data Portability ---
Author Organization [facility], Main Office Address [address], [address] [place] [address] Care Team Providers Care Dairy Associate Name Role Phone CAREONE (NONO UNIT) OTHER LADONNA LINDSEY Primary Care Provide r Assessment Encounter Date Assessment Date Assessment LastModified by Organization Details LastModified Time 10/06/2022 10/06/2022 67 yo woman delbert bower seen acutely for n/v; she describes vertigo w room spinning triggered by head position changes associated w nausea; she is very constipated zofran helped some; otherwise feeling well; ### hx osteomyelitis left foot 3rd toe (now amputated); complicated by strep agalactiae bacterial endocarditis; s/p treatment w ceftriaxone; (montana still in place; infect dz is reportedly arranging to have montana removed after approx 5 d holding coumadin; no lovenox bridge); s/p complex cardiac surgery (08/15/22) aortic & mitral valves replaced (bioprosthesis), mitral valve repair, etc; pacemaker implanted; pmh htn; aspvd; non occlusive dvt; dm2; warfarin; anemia; s/p dental extractions; ckd stage 4; recent range 1.4 to 2.5; recently (09/25/22) cr 2.1 egfr 25, calci 9.4; urinary retention; f/u urology outpatient polyneuropathy; ### CVS / aortic & mitral valves replaced;( 08/15/22;)bioprosthet ic; Urgent mitral valve replacement using a 31 mm porcine bioprosthesis, reconstruction of the posterior mitral valve annulus secondary to 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 htn; TTE obtained preserved EF 60-65%;; [facility] (08/11/22) There appears to be a vegetation attached to the posterior leaflet of the mitral valve it measures 1.7 x 1.7 cm. It is mobile. The anterior leaflet looks fairly intact. The posterior leaflet looks perforated with severe mitral regurgitation through the leaflets. Aortic valve looks grossly normal. Tricuspid valve and pulmonic valve were not assessed; See transthoracic echocardiogram from yesterday. Compared to that there is clearly severe mitral regurgitation and vegetation on the posterior leaflet. Given her clinical worsening overnight we are transferring her to the CCU at [facility].;;;;; Transthoracic echo 08/10 showed sinus rhythm with grossly normal left ventricular systolic function and EF of 55%. The aortic valve was poorly visualized but no obvious gross vegetation. There was probably moderate mitral regurg with a mitral valve leaflet thickening suggestive of possible vegetation aspvd; hs dvt; Non-occlusive thrombus in R common femoral; no pe per ct; repeat u/s for clot progression on 09/13; Will need outpatient hematology follow up PPM placed 08/24/[address] Cortes; PULM / cxr (08/11/22) 1. Worsening bilateral perihilar and lower lung interstitial and airspace opacities, likely representing worsening edema and/or aspiration/pneumoni a.; 2. Increase in small bilateral pleural effusions. ENDO / dm2; --Continue Lantus to 40 units daily at lunch; --Continue lispro sliding scale 15 units per 100 mg/dL increasing by 2 units per 50 mg/dL every 6 hours, hold if tube feeds held; --Continue lispro sliding scale 7 units per 100 mg/dL increasing by 2 units per 50 mg/dL, 3 times daily with meals, hold if n.p.o.; hba1c 8.5%; Dr Sethi is diabetic doctor; HEME / warfarin;(09/29/22) inr 2.5; (09/27) 2.1; (09/25/22) inr 2.1; discharged on Coumadin which is typically required for approximately 3 months postoperatively to minimize thromboembolic phenomenon from the first suture lines and the endothelialized hardware implanted in her aortic and mitral positionsformerly on eliquis; consider f/u heme; anemia; (09/25/22) h/h 10.5/33.3; (09/08/22) 8.4/28.1; (09/11/21) w 19 hb 13.8/41 plt 228; GI / No further episodes of coffee ground emesis after the single incident called Dr Eric Schaeffer (performed extractions on 08/12, see note) for follow-up on sutures at [phone], left voicemail.; Will need outpatient follow up with Eric Schaeffer for follow up and suture removal / Dr Barahona renal; (09/25/22) cr 2.1 egfr 25, calci 9.4; (09/21/22) cr 2.4; (09/18/22) cr 2.5; ckd; microalbuminuria ;; (09/11) cr 1.6; (09/08/22) cr 1.4 egfr 42;;;; JAMES on CKD CKD IIIb-IV (Bl Cr 1.6-1.8- renal following prior to OR most likely ATN;;; [facility] her BUN and creatinine are 23 and 1.8. (07/12/22) cr 1.8 egfr 30; Urinary retention ; --Plan to discharge to rehab with Guzman catheter given multiple failed voiding trials:--Will need outpatient urology follow up RHEUM / arthritis; ORTHO / hammertoes with previous amputation on the right foot (digit #5); MRI of the spine without evidence of epidural abscess/discitis/sp ine osteo. osteomyelitis; [facility] (08/07/22) unwitnessed fall and found to have left foot cellulitis and 3rd toe osteomyelitis - strep bacteremia; Bacteremia - streptococcus agalactiae; left 3rd toe amputation--Left third toe osteomyelitis requiring amputation by vascular on 08/12/2022; 08/01 she had an MRI at [facility] which showed soft tissue ulceration and cellulitis at the distal aspect of the third toe with acute osteomyelitis within the adjacent third distal phalanx.Dr. Del Angel who arranged for 3rd toe amputation given the nonhealing wound and suspicion for osteomyelitis of the distal phalanx. Surgery was postponed when she had worsening respiratory status.;;; hx /// following with wound clinic in [place], starting in May had three courses of doxycycline without improvement; NEURO / polyneuropathy; depression; ID / Endocarditis secondary to Strep agalactiae; infectious dz (09/27/22) stop the antibiotics; Incidental Candiduria; Possible Pneumonia; --Left third toe cellulitis requiring amputation by vascular on 08/12/2022; --Dental caries requiring extraction of almost all teeth performed on 08/12/2022; --ID signed off, rec'd Ceftriaxone 2g/24h x 6 weeks from 08/15/22- end date 09/29; --L subclavian [place] placed for extermination inspector abx; --Will need outpatient ID follow up Outpatient Parenteral Antimicrobial Treatment (OPAT) Plan:;Indication: strep agalactiae endocarditis s/p MVR and AVR 08/15/22; Antimicrobials: ceftriaxone 2 grams daily; Planned Duration: 6 weeks; Start Date: 08/15/22 & End Date: 09/25/22; Labs: While on IV antimicrobials please follow at least weekly:; [X ] CBC with diff, BUN, creatinine; [X] AST, ALT, T bili ###### Not available 10/07/2022 09:27:03 10/12/2022 10/12/2022 I have seen and examined the patient independently and confirmed the findings above with the BREAD DUMPER student note. Management plan discussed with the BREAD DUMPER student personally. glord Not available 10/12/2022 10:08:10 10/13/2022 10/13/2022 (1) acute renal failure: renal us neg; decrease diuretics to every other day; (2) consult Dr Barahona nephrology; labs sunday; (3) consider adding lft, lipase; abd us to work up; ### 67 yo woman had osteomyelitis and bacterial endocarditis requiring all teeth extracted; one toe amputated; antibiotics; and cardiac surgery (mitral and aortic bioprosthetic replacements, pacemaker); post op course complicated by vertiginous dry heaves; chronic renal insuf; baseline creat 1.8; now up to 2.5 without obvious etiology; have cut diuretics in half today; urinalysis (10/11/22) contaminated; renal us (10/12/22)The right kidney measured 9 cm and the left 10 cm. cortical medullary differentiation, cortical echo texture and showed no evidence for pelvocaliectasis, nephrolithiasis or focal mass. 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 htn; TTE obtained preserved EF 60-65%;; [facility]son cdh (08/11/22) There appears to be a vegetation attached to the posterior leaflet of the mitral valve it measures 1.7 x 1.7 cm. It is mobile. The anterior leaflet looks fairly intact. The posterior leaflet looks perforated with severe mitral regurgitation through the leaflets. Aortic valve looks grossly normal. Tricuspid valve and pulmonic valve were not assessed; See transthoracic echocardiogram from yesterday. Compared to that there is clearly severe mitral regurgitation and vegetation on the posterior leaflet. Given her clinical worsening overnight we are transferring her to the CCU at [facility].;;;;; Transthoracic echo 08/10 showed sinus rhythm with grossly normal left ventricular systolic function and EF of 55%. The aortic valve was poorly visualized but no obvious gross vegetation. There was probably moderate mitral regurg with a mitral valve leaflet thickening suggestive of possible vegetation aspvd; hs dvt; Non-occlusive thrombus in R common femoral; no pe per ct; repeat u/s for clot progression on 09/13; Will need outpatient hematology follow up PPM; (09/26/22) device check, presumably of pacer, presumably by cardiology; placed 08/24/[address] Cortes; PULM / cxr (08/11/22) 1. Worsening bilateral perihilar and lower lung interstitial and airspace opacities, likely representing worsening edema and/or aspiration/pneumoni a.; 2. Increase in small bilateral pleural effusions. ENDO / dm2; --Continue Lantus to 40 units daily at lunch; --Continue lispro sliding scale 15 units per 100 mg/dL increasing by 2 units per 50 mg/dL every 6 hours, hold if tube feeds held; --Continue lispro sliding scale 7 units per 100 mg/dL increasing by 2 units per 50 mg/dL, 3 times daily with meals, hold if n.p.o.; hba1c 8.5%; Dr Sethi is diabetic doctor; HEME / warfarin;(10/04/22) inr 3.4; (09/29/22) inr 2.5; (09/27) 2.1; (09/25/22) inr 2.1; discharged on Coumadin which is typically required for approximately 3 months postoperatively to minimize thromboembolic phenomenon from the first suture lines and the endothelialized hardware implanted in her aortic and mitral positionsformerly on eliquis; consider f/u heme; anemia; (10/02/22) h/h 9.5/30.6; (09/25/22) h/h 10.5/33.3; (09/08/22) 8.4/28.1; (09/11/21) w 19 hb 13.8/41 plt 228; GI / No further episodes of coffee ground emesis after the single incident called Dr Eric Schaeffer (performed extractions on 08/12, see note) for follow-up on sutures at [phone], left voicemail.; Will need outpatient follow up with Eric Schaeffer for follow up and suture removal / Dr Barahona renal; [creat range 1.4-2.5]; (10/10/22) cr 2.5; (10/02/22) cr 2.2 egfr 24; (09/25/22) cr 2.1 egfr 25, calci 9.4; (09/21/22) cr 2.4; (09/18/22) cr 2.5; ckd; microalbuminuria ;; (09/11) cr 1.6; (09/08/22) cr 1.4 egfr 42;;;; JAMES on CKD CKD IIIb-IV (Bl Cr 1.6-1.8- renal following prior to OR most likely ATN;;; [facility] reportsAt discharge her BUN and creatinine are 23 and 1.8. (07/12/22) cr 1.8 egfr 30; urology consult (10/05/22) leave guzman in for now; change guzman q 3-4 weeks; plan f/u 1 month; RHEUM / arthritis; ORTHO / hammertoes with previous amputation on the right foot (digit #5); MRI of the spine without evidence of epidural abscess/discitis/sp ine osteo. osteomyelitis; [facility] (08/07/22) unwitnessed fall and found to have left foot cellulitis and 3rd toe osteomyelitis - strep bacteremia; Bacteremia - streptococcus agalactiae; left 3rd toe amputation--Left third toe osteomyelitis requiring amputation by vascular on 08/12/2022; 08/01 she had an MRI at [facility] which showed soft tissue ulceration and cellulitis at the distal aspect of the third toe with acute osteomyelitis within the adjacent third distal phalanx.Dr. Del Angel who arranged for 3rd toe amputation given the nonhealing wound and suspicion for osteomyelitis of the distal phalanx. 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 to reconstruct the posterior mitral valve annulus; discharged on Coumadin which is typically required for approximately 3 months postoperatively to minimize thromboembolic phenomenon from the first suture lines and the endothelialized hardware implanted in her aortic and mitral positions; 6 weeks of antibiotic therapy post mitral valve and aortic valve replacements;; The patient's left second toe amputation site is well-healed and sutures were removed.;;; current guidelines are for a 3 to 6-month period of anticoagulation postoperatively although the data supporting those guidelines is relatively weak. Given the need to stop anticoagulation I think it would be reasonable that anticoagulation can be held for 5 days to have the patient's [place] catheter removed without any Lovenox bridging.;;; At this juncture I think we can stop the patient's Lasix. infectious dz (09/27/22) stop the antibiotics;;;; Endocarditis secondary to Strep agalactiae; ; Incidental Candiduria; Possible Pneumonia; --Left third toe cellulitis requiring amputation by vascular on 08/12/2022; --Dental caries requiring extraction of almost all teeth performed on 08/12/2022; --ID signed off, rec'd Ceftriaxone 2g/24h x 6 weeks from 08/15/22- end date 09/29; --L subclavian [place] placed for [facility] abx; --Will need outpatient ID follow up Outpatient Parenteral Antimicrobial Treatment (OPAT) Plan:;Indication: strep agalactiae endocarditis s/p MVR and AVR 08/15/22; Antimicrobials: ceftriaxone 2 grams daily; Planned Duration: 6 weeks; Start Date: 08/15/22 & End Date: 09/25/22; Labs: While on IV antimicrobials please follow at least weekly:; [X ] CBC with diff, BUN, creatinine; [X] AST, ALT, T bili ################### ## [email or web address] Not available 10/14/2022 10:10:19 Plan of Treatment Reminders Order Date Submit Date Provider Last Modified By Organization Details Last Modified Time Details Appointments None record ed. Lab None record ed. Referral None record ed. Procedures None record ed. Surgeries None record ed. Imaging None record ed. Medication Orders None record ed. Patient TargetsNo targets recorded. Patient InstructionsNo instructions recorded. Reason for Referral None Reported. Problems Name Problem SNOMED Code Status Onset Date Resolution Date Notes Provider Name and Address Organization Details Recorded Time Osteomyelit is 28743242 Active [address], [address], [place], [address], [facility] 3 08:15:12 Diabetes mellitus 77204044 Active [address], [address], [place], [address], [facility] [employer] 3 08:15:19 Essential hypertensio n 11207255 Active [address], [address], [place], [address], [employer] 3 08:15:22 History of deep vein thrombosis 026253027 Active [address], [address], [place], [address], [facility] [employer] 3 08:15:28 Chronic kidney disease 202306037 Active [address], [address], [place], [address], [facility] 3 08:15:35 Unsteady when walking 99341428 Active [address], [address], [place], [address], [facility] 3 08:15:43 Acute heart failure 78366384 Active [address], [address], [place], [address], [facility] 3 08:24:30 Endocarditi s 75482499 Active [address], [address], [place], [address], [facility] 3 10:03:40 Peripheral vascular disease 313496390 Active [address], [address], [place], [address], [facility] 3 10:03:52 Hammer toe 297270768 Active [address], [address], [place], [address], [facility] 3 10:04:24 Severe obesity 3119434228785 4 Active [address], [address], [place], [address], [facility] 3 10:04:35 Gastrointes tinal hemorrhage 78349125 Active [address], [address], [place], [address], [facility] 3 10:15:35 Dental caries 92193729 Active [address], [address], [place], [address], [facility] 3 10:16:14 Retention of urine 932876467 Active [address], [address], [place], [address], [facility] 3 10:16:50 Insomnia 089876666 Active [address], [address], [place], [address], [facility] [employer] 3 10:22:29 Anxiety 37776125 Active [address], [address], [place], [address], [facility] 3 10:23:38 Obstructive sleep apnea syndrome 10181971 Active 2022 Apolinar Redd [facility] [employer] 3 09:59:26 Problem Notes None recorded. Medical Equipment None Reported. Allergies Allergen ID Allergen Name Allergen Category Reaction Reaction Severity Criticality Documentation Date Start Date Code Code System Note Provider Name and Address Organization Details Recorded Time 93152 ethanol food,medi cation Not available Not available Not available 09/09/2022 448 RxNorm GANESH [address], [address], [place], [address], [facility] [employer] 3 08:25:06 19487 ethanol environme nt,medica tion Not available Not available Not available 09/09/2022 [address], [address], [place], [address], [facility] [place] [facility] 3 08:25:20 87466 amlodipin e medicatio n Not available Not available Not available 09/09/2022 34178 RxNorm GANESH [address], [address], [place], [address], [facility] [employer] 3 08:25:26 24719 Levemir medicatio n Not available Not available Not available 09/09/2022 25533 0 RxNorm GANESH [address], [address], [place], [address], [facility] [employer] 3 08:25:30 39564 Substance with sulfonami de structure and antibacte rial mechanism of action (substanc e) medicatio n Not available Not available Not available 09/09/2022 04030 8003 SNOMED GANESH [address], [address], [place], [address], [facility] 3 08:25:37 Medications Name Sig Start Date Stop Date Status Note LastModified by Organization Details LastModified Time Xanax 0.5 mg tablet Take 1 tablet 3 times a day by oral route. 023 active Not Available Not Available Not Avai lable Vitals Date Recorded Body height Provider Name an d Address Organization Details Last Updated DateTime 10/06/2022 175.26 cm Jayy Curran MD [address] , [facility] [address], [place], [address], [employer] 10/07/2022 09:21:46 Date Recorded Body height Heart rate Body temperature Respiratory rate Oxygen saturation Oxygen saturation in Arterial blood by Pulse oximetry Systolic blood pressure Diastolic blood pressure Provider Name and Address Organization Details Last Updated DateTime 175.26 cm 94 /min 97.1 [degF] 18 /min 97 % 97 % 122 mm[Hg] 74 mm[Hg] [facility] [address], [place], [address], [facility] 3 09:11:46 Date Recorded Body height Body temperature Provider N greg and Address Organization Details Last Updated DateTime 10/13/2022 175.26 cm 97.1 [degF] Jayy Curran MD [address] , [address], [place], [address], [facility] 10/14/2022 09:42:35 Date Recorded Body height Body temperature Heart rate Systolic blood pressure Diastolic blood pressure Provider Name and Address Organization Details Last Updated DateTime 10/17/2022 175.26 cm 97.1 [degF] 81 /min 131 mm[Hg] 72 mm[Hg] GANESH LORD [address] , [address], [place], [address], [facility] 3 12:37:34 Date Recorded Body height Heart rate Body temperature Respiratory rate Oxygen saturation Oxygen saturation in Arterial blood by Pulse oximetry Systolic blood pressure Diastolic blood pressure Provider Name and Address Organization Details Last Updated DateTime 3 175.26 cm 83 /min 97.8 [degF] 18 /min 94 % 94 % 136 mm[Hg] 82 mm[Hg] GANESH LORD [address] [facility], [address], [place], [address], [facility] [employer] 3 10:54:40 Social History Question Answer Notes LastModified by Organizat ion Details LastModified Time Tobacco Smoking Status Never Smoker GANESH [address] , [address], [place], [address], [facility] [employer] 09/09/2022 08:26:50 Do You Have An Advance Directive? No Information not available 09/09/2022 What Is Your Level Of Alcohol Consumption? None Information not available 09/09/2022 What Is Your Code Status? Full Code Information not available 09/09/2022 Do You Have A Medical Power Of Veneer Drier Feeder? No Information not available 09/09/2022 Do You Have An Out Of Hospital DNR? No Information not available 09/09/2022 Do You Use Any Illicit Or Recreational Drugs? No Information not available 09/09/2022 Has Tobacco Cessation Counseling Been Provided? No Information not available 09/09/2022 Do You Or Have You Ever Used Any Other Forms Of Tobacco Or Nicotine? No Information not available 09/09/2022 Sex: Female Functional Status None recorded. Mental Status None recorded. Family History Relationship Description Onset Age of this Age Resolved Age Notes LastModified by Organization Details LastModified Time Father No current problems or disability glord Not available 09/09 08:26:57 Mother No current problems or disability glord Not available 09/09 08:26:57 Notes:n/c Medical History No medical history recorded. Gynecological HistoryNo gynecological history recorded. Obstetrics History GPAL:G 0 P 0 0 0 0 Immunizations Vaccine Type Date Status Provider Name and Address Organization Details Recorded Time SARS-COV-2 (COVID-19) vaccine, UNSPECIFIED 12/19/2021 [facility]22 15:49:51 SARS-COV-2 (COVID-19) vaccine, UNSPECIFIED 07/18/2021 completed Kellie tripathi [facility] 09/08/2022 15:50:00 SARS-COV-2 (COVID-19) vaccine, UNSPECIFIED 12/28/2020 timo Robertson null, [facility] 09/08/2022 15:50:07 SARS-COV-2 (COVID-19) vaccine, UNSPECIFIED 11/29/2020 completed Kellie Robertson null, [facility] 09/08/2022 15:50:17 Td(adult) unspecified formulation 09/12/2021 completed Kellie Robertson null, [facility] 09/08/2022 15:50:37 Td(adult) unspecified formulation 03/02/1997 completed Kellie Robertson null, [facility] 09/08/2022 15:51:06 Tdap 04/14/2011 completed Kellie Robertson null, [facility] 09/08/2022 15:51:32 influenza, unspecified formulation 06/02/2021 completed Kellie Robertson null, [facility] 09/08/2022 15:51:53 influenza, unspecified formulation 07/19/2020 completed Kellie Robertson null, [facility] 09/08/2022 15:52:01 influenza, unspecified formulation 08/15/2019 completed Kellie Robertson null, [facility] 09/08/2022 15:52:10 pneumococcal polysaccharide PPV23 06/10/2021 completed Kellie Robertson null, [facility] 09/08/2022 15:52:51 pneumococcal polysaccharide PPV23 01/23/2014 completed Kellie Robertson null, [facility] 09/08/2022 15:53:07 zoster live 02/03/2016 completed Kellie Robertson null, [facility] 09/08/2022 15:53:28 Influenza, adjuvanted, quadrivalent, PF 10/03/2022 completed Radha tripathi, [facility] 09/18/2023 11:46:51 Influenza, adjuvanted, quadrivalent, PF 06/04/2023 completed Radha tripathi, [facility] 10/22/2023 10:35:51 Past Encounters Encounter ID Performer Location Encounter Start Date Encounter Closed Date Diagnosis/Indication Diagnosis SNOMED-CT Code Diagnosis ICD10 Code [id number] GANESH Sheriff [facility] [address] [place] [address] 09/09/2022 08:13:20 09/11/2022 10:54:50 Osteomyelitis 90762240 M86.9 Chronic ki dney disease 561270294 N18.9 Acute heart failure 5667 5007 I50.9 Diabetes mellitus 305147 09 E11.9 Essential hypertension 74677625 I10 Gastrointe stinal hemorrhage 62744511 K92.2 Dental caries 04814165 K 02.9 Retention of urine 45122 4002 R33.9 Insomnia 610746565 G47.0 9 Anxiety 50388924 F41.9 [id number] Jayy Curran MD [facility] on [address] [place] [id number] 2 09/11/2022 11:15:07 09/13/2022 11:03:16 Bacterial endocarditis 733852654 I33.0 History of mitral valve replacement 7892771184 109 Z95.2 History of aortic valve replacement 6608042263 100 Z95.4 Diabetic foot ulcer 3710 47341 E13.621 Essential hypertension 88158108 I10 History of deep vein thrombosis 364674820 Z86.718 Cardiac pa cemaker in situ 900837730 Z95.0 Type 2 jaren betes mellitus 69170094 E11.21 Anticoagulant therapy 18 8378917 Z79.01 Anemia 044772063 D64.9 Dental caries 73624569 K 02.9 Chronic ki dney disease 514327508 N18.9 Retention of urine 53687 4002 R33.9 Osteomyelitis 44078384 M 86.9 Peripheral neuropathy due to type 2 diabetes mellitus 5159787812 107 E11.42 Medication monitoring 39 5319078 Z51.81 [id number] GANESH Sheriff [facility] on [address] [place] [address]038 2 09/18/2022 09:42:21 09/20/2022 09:43:33 Osteomyelitis 69430593 M86.9 Chronic ki dney disease 775344333 N18.9 Diabetes mellitus 860303 09 E11.9 Dental caries 40210528 K 02.9 Retention of urine 86015 4002 R33.9 [id number] GANESH Sheriff [facility] on [address] [place] [id number] 2 09/19/2022 09:14:37 09/21/2022 10:40:20 Retention of urine 912061012 R33.9 Nausea and vomiting 1693 1999 R11.2 [id number] GANESH Sheriff at [facility] on [address] [place] [id number] 2 09/20/2022 09:05:37 09/22/2022 11:07:29 Retention of urine 821293816 R33.9 GANESH Sheriff at [facility] on [address] [place] [id number] 2 09/21/2022 09:09:52 09/25/2022 12:28:56 Retention of urine 890629145 R33.9 [id number] GANESH Sheriff at [facility] on [address] [place], [place] [phone] 2 09/25/2022 09:28:17 09/27/2022 08:19:42 Anxiety 05689118 F41.9 Retention of urine 80751 4002 R33.9 [id number] GANESH Sheriff [facility] on [address] [place] [id number] 2 09/27/2022 11:07:18 10/02/2022 14:50:56 Retention of urine 523318682 R33.9 Osteomyelitis 37836326 M 86.9 Dental caries 54972401 K 02.9 [id number] Jayy Curran MD [facility] at [facility] on [address] [place] [id number] 2 10/02/2022 11:36:38 10/04/2022 08:12:23 Bacterial endocarditis 581671912 I33.0 History of mitral valve replacement 6468068912 109 Z95.2 History of aortic valve replacement 1221080901 100 Z95.4 Osteomyelitis 61901483 M 86.9 Essential hypertension 17171767 I10 Peripheral vascular disease 640828997 I73.9 History of deep vein thrombosis 009710617 Z86.718 Cardiac pa cemaker in situ 163081215 Z95.0 Type 2 jaren betes mellitus 34336317 E11.21 Anticoagulant therapy 18 5756188 Z79.01 Anemia 367946947 D64.9 Chronic ki dney disease stage 4 238641605 N18.4 Retention of urine 13781 4002 R33.9 Peripheral neuropathy due to type 2 diabetes mellitus 6665079444 107 E11.42 Medication monitoring 39 8363827 Z51.81 Vertigo 634118143 R42 [id number] [facility] [address] [place] [id number] 2 10/06/2022 14:24:07 10/09/2022 11:23:24 Vertigo 916799134 R42 [id number] [facility] [address] [place] [id number] 2 10/12/2022 09:11:19 10/16/2022 13:25:54 Vertigo 511453152 R42 Obstructiv e sleep apnea syndrome 47177872 G47.33 [id number] Jayy Curran MD [facility] on [address] [place] [id number] 2 10/13/2022 13:27:30 10/16/2022 13:32:35 Bacterial endocarditis 714218817 I33.0 Chronic ki dney disease 846156695 N18.9 Vertigo 636494529 R42 Type 2 jaren betes mellitus 18075189 E11.21 Anticoagulant therapy 18 1401923 Z79.01 Anemia 729750363 D64.9 Retention of urine 16389 4002 R33.9 Medication monitoring 39 2106035 Z51.81 [id number] [facility] [address] [place] [id number] 2 10/17/2022 12:36:24 10/18/2022 16:30:15 Chronic kidney disease 604380541 N18.9 Acute heart failure 5667 5007 I50.9 Essential hypertension 88885615 I10 [id number] LINNEA LIU NP [facility] on [address] [place] [id number] 2 10/23/2022 10:53:35 11/03/2022 13:34:51 Chronic kidney disease 164425535 N18.9 Acute heart failure 5667 5007 I50.9 Essential hypertension 02094237 I10 Vertigo 181121542 R42 Obstructiv e sleep apnea syndrome 77132664 G47.33 Bacterial endocarditis 401931394 I33.0 History of mitral valve replacement 3769792723 109 Z95.2 History of aortic valve replacement 9700498609 100 Z95.4 Osteomyelitis 98051622 M 86.9 Peripheral vascular disease 795469086 I73.9 History of deep vein thrombosis 803476199 Z86.718 Type 2 jaren betes mellitus 08295414 E11.21 Anemia 126828901 D64.9 Retention of urine 34308 4002 R33.9 Health Concerns Section Related Observation LastModified by Organization Detai ls LastModified Time None Recorded Concern Status LastModified by Organization Details LastModified Time None Recorded Advance Directives Directive N: Payers Encounter Date Sequence Insurance Name Policy Number Policy Carney Covered Member ID Carney Member ID Guarantor Name 10/06/2022 2 [place] Linnea [place] [id number] Linnea [place] 10/06/2022 1 [place] [employer] Linnea [place] [id number] Linnea [place] 10/12/2022 2 [place] Linnea Karen [id number] Linnea [place] 10/12/2022 1 [place] [employer] Linnea [place] [id number] Linnea [place] 10/13/2022 2 [place] Linnea [place] [id number] Linnea [place] 10/13/2022 1 [place] [employer] Linnea [place] [id number] Linnea Karen 10/17/2022 2 [place] Linnea [place] [id number] Linnea [place] 10/17/2022 1 [place] [employer] Linnea Karen [id number] Linnea [place] 10/23/2022 2 [place] Linnea [place] [id number] Linnea [place] 10/23/2022 1 [place] [employer] Linnea [place] [id number] Linnea [place] Notes Date Note Type Note Provider Name and Address Organization Details Recorded Time 10/06/2022 text/html 67 yo woman delbert bower seen acutely for n/v;she describes vertigo w room spinning triggered by head position changes associated w nausea;she is very constipatedzofran helped some;otherwise feeling well;###hx osteomyelitis left foot 3rd toe (now amputated);complicated by strep agalactiae bacterial endocarditis; s/p treatment w ceftriaxone; (montana still in place; infect dz is reportedly arranging to have montana removed after approx 5 d holding coumadin; no lovenox bridge);s/p complex cardiac surgery (08/15/22) aortic & mitral valves replaced (bioprosthesis), mitral valve repair, etc; pacemaker implanted;pmhhtn; aspvd; non occlusive dvt;dm2;warfarin;anemi a;s/p dental extractions;ckd stage 4; recent range 1.4 to 2.5; recently (09/25/22) cr 2.1 egfr 25, calci 9.4;urinary retention; f/u urology outpatientpolyneuropat hy; Jayy Curran MD [address] [facility], [address], [place], [address], [employer] [facility] 10/07/2022 09:29:18 10/12/2022 text/html This is a 67 yo woman seen today for acute rounding visit. Patient with new nausea and head spinning, questioning vertigo. We have asked PT to eval for this, she has meclizine PRN. RT tells me that she has ITZEL and has a CPAP at home which she has not been using here. Asked her to bring it in which she did last night and used it. RT adding updrafts for some SOB. She reports still feeling nausea but no vomiting. NO appetite but drinking supplements. Requesting for her guzman to removed however guzman to stay in til seen by urology. GANESH LARA [address] [facility], [address], [place], [address], [employer] [facility] 10/12/2022 10:08:19 10/13/2022 text/html 67 yo woman had osteomyelitis and bacterial endocarditis requiring all teeth extracted; one toe amputated; antibiotics; and cardiac surgery (mitral and aortic bioprosthetic replacements, pacemaker);post op course complicated by vertiginous dry heaves;chronic renal insuf; baseline creat 1.8; now up to 2.5 without obvious etiology; have cut diuretics in half today;urinalysis (10/11/22) contaminated;renal us (10/12/22)The right kidney measured 9 cm and the left 10 cm. cortical medullary differentiation, cortical echo texture and showed no evidence for pelvocaliectasis, nephrolithiasis or focal mass.dm2;non occlusive dvt;warfarinanemia Jayy Curran MD [address] [facility], [address], [place], [address], [employer] 10/14/2022 10:15:08 10/17/2022 text/html This is a 67 yo woman seen today for acute rounding visit. Patient originally admitted s/p osteomyelitis and bacterial endocarditis requiring all teeth extracted; one toe amputated; antibiotics; and cardiac surgery (mitral and aortic bioprosthetic replacements, pacemaker). Her stay has been complicated by vertigo symptoms with associated nausea. Her kidney function also worsening, baseline creat 1.8 now up to 2.5 with no cause. Weight currently 258, admission weight 271. She is on spironolactone and lasix BID, will stop spironolactone today and monitor kidneys and bp for change.dm2;non occlusive dvt;warfarinanemia GANESH LARA [address] [facility], [address], [place], [address], [employer] 10/17/2022 12:39:28 10/23/2022 text/html This is a 67 yo woman seen today for discharge summary visit. Patient originally admitted s/p osteomyelitis and bacterial endocarditis requiring all teeth extracted; one toe amputated; antibiotics; and cardiac surgery (mitral and aortic bioprosthetic replacements, pacemaker). Her stay has been complicated by vertigo symptoms with associated nausea. Her spironolactone was stopped due to kidney function, on review of EPIC her creat has been stable since 09/21. She has complained of nausea intermittent, she tells me today she feels fine. It happens most when she changes position, explained to her her blood pressure likely drops and causes nausea so she needs to change slowly. No other concerns at this time, she is ready to go home and knows [facility]NA is coming.dm2;non occlusive dvt;warfarinanemia LINNEA LIU NP [address] [facility], [address], [place], [address], [employer] 11/07/2022 12:07:03 OBGyn Episode No OBEpisode recorded.
== END 2024-07-16 15:31 | disposition home or self-care (01) ==
LOC: HO.HID 14:50
PROVIDERS: PCP Family Medicine; Visit Provider Internal Medicine
DX: E11.621 Type 2 diabetes mellitus with foot ulcer (principal); L97.509 Non-pressure chronic ulcer of other part of unspecified foot with unspecified severity
CPT/HCPCS: 99213

== ENCOUNTER → 2024-07-16 14:49 | Outpatient (BNVA) | payer MEDICARE, SELFPAY ==
--- NOTE | 2024-07-22 15:25 | P.EN_ITS ---
Event Note Date of Service: 07/23/24 Event Note: Called by ED to assess [place] due to VNA concerns. Right IJ [place] was placed in 06/2024 for [facility] iv antibiotics with an end date in late July. Patient reports VNA noticed a small amount of blood from around the insertion site of the catheter. In addition, they were unable to draw blood from the [place]. She denies fevers, or pain. AVSS [place] present in right chest wall- small amount of old crusted blood at insertion site with a tiny amount of dark blood present. No erythema/induration. Right chest wall is non-tender. [place] flushes without resistance and aspirates blood without any difficulty. I explained to the patient that bleeding can occur if the catheter is tugged on during dressing changes. I changed her dressing and applied a small pressure dressing. [place] is able to be used. I also updated the patient that we had received an order from ID to remove the [place] as well. She was told to return for fevers, redness/pain at catheter site, or uncontrollable bleeding from around the catheter. Time Spent With Patient Time: Total time managing care of this patient today ____ minutes.
== END ==
PROVIDERS: PCP Family Medicine; Visit Provider Internal Medicine
DX: E11.621 Type 2 diabetes mellitus with foot ulcer (principal); L97.519 Non-pressure chronic ulcer of other part of right foot with unspecified severity
CPT/HCPCS: 99212; 99499

== ENCOUNTER 2024-07-22 14:15 | Emergency (ER) | payer MEDICARE, MEDICAID, SELFPAY ==
[2024-07-22 14:44] VITALS: BP 170/92; PULSE 116; RESP 20; TEMP 36.2; O2SAT 98; BMI 37.3
--- NOTE | 2024-07-22 14:46 | ED_ITS ---
HPI - General Adult General Chief complaint: Skin/Abscess/Foreign Body Stated complaint: Bleeding chest area Time Seen by Provider: 07/22/24 15:29 Source: patient and RN notes reviewed Mode of arrival: ambulatory Limitations: no limitations History of Present Illness ED Provider: Mary Borjas PA-C HPI narrative: This is a 68-[id number]-female, PMH significant for?HTN, endocarditis s/p valve replacement, insulin-dependent type 2 diabetes, hx of osteo s/p left great toe amputation, CKD 3, ITZEL not on CPAP and anxiety who presents to the ED with concerns for right IJ christensen port bleeding. Reports that she had this replaced by [facility]NA on sunday, and [facility] came to her home today to change dressing again due to having a DELMY scheduled on sunday however [facility]NA was told that to come to the ER due to that area bleeding. The nurse then tried to draw back on this for blood work, with no blood return. She reports that she is feeling well, no current symptoms other than concerns for inadequate Christensen port placement. MD complaint: ?Christensen malfunction Onset (ago): hour(s) Relieving factors: none Exacerbating factors: none Associated symptoms: denies other symptoms Treatments prior to arrival: none Related Data Home Medications ?Medication ?Instructions ?Recorded ?Confirmed alprazolam 0.5 mg tablet 0.5 - 1 mg PO DAILY PRN Anxiety 03/19/23 06/27/24 aspirin 81 mg tablet,delayed 81 mg PO DAILY 03/19/23 06/26/24 release cholecalciferol (vitamin D3) 50 50 mcg PO DAILY 03/19/23 06/26/24 mcg (2,000 unit) capsule insulin glargine 100 unit/mL (3 40 unit subcut BEDTIME 03/19/23 06/26/24 mL) subcutaneous pen (Lantus Solostar U-100 Insulin) insulin lispro 100 unit/mL 30 sliding scale dose subcut TID 03/19/23 06/27/24 subcutaneous pen (Humalog KwikPen (U-100) Insulin) meclizine 12.5 mg tablet 12.5 mg PO BID PRN Dizziness 03/19/23 06/27/24 metoprolol succinate 50 mg 50 mg PO DAILY 03/19/23 06/26/24 tablet,extended release 24 hr spironolactone 25 mg tablet 25 mg PO DAILY 06/20/23 06/26/24 albuterol sulfate 90 mcg/actuation 2 puff inhalation Q6H PRN 06/27/24 06/27/24 aerosol inhaler (Ventolin HFA) Shortness Of Breath Or Wheezing alprazolam 0.5 mg tablet 0.75 mg PO BEDTIME 06/27/24 06/27/24 bupropion HCl 150 mg 24 hr tablet, 150 mg PO DAILY 06/27/24 06/27/24 extended release desvenlafaxine succinate 50 mg 50 mg PO DAILY 07/02/24 07/02/24 tablet,extended release 24 hr biotin 1 mg capsule 1 mg PO DAILY 07/16/24 magnesium hydroxide 600 mg mg PO 07/16/24 chewable tablet (Dulcolax (magnesium hydroxide)) spironolactone 25 mg tablet 25 mg PO DAILY 07/16/24 Previous Rx's ?Medication ?Instructions ?Recorded acetaminophen 650 mg 650 mg PO Q8H PRN pain #90 tabs 02/16/21 tablet,extended release (Tylenol Arthritis Pain) daptomycin 500 mg intravenous 900 mg IV Q24H 07/03/24 solution Allergies Allergy/AdvReac Type Severity Reaction Status Date / Time alcohol Allergy Severe Anaphylaxis Verified 07/22/24 14:49 amlodipine Allergy Intermediate Hives Verified 07/22/24 14:49 insulin detemir Allergy Intermediate rash Verified 07/22/24 14:49 Sulfa (Sulfonamide Allergy Unknown hives Verified 07/22/24 14:49 Antibiotics) Review of Systems Review of Systems: Yes all other systems are reviewed and are negative Constitutional: Constitutional: Reports as per [facility] Past Medical History Medical History Toe ulcer Osteomyelitis Foot ulcer Hx of cardiac pacemaker Surgical History (Updated 07/11/24 @ 00:01 by Jorge Muñoz) S/P aortic valve and mitral valve replacement Social History Social History Household Members Other:: daughter there sometimes Housing: House Do you presently have visiting nurse or other home services: Yes (home health aide) Patient Tobacco Use Status: Never used Tobacco e-Cigarette/Vaping Use: Never Used Advance Directives: Yes Advance Directives Information Provided: Yes Advance Directives on File: No service: No Physical Exam ED Vital Signs: Vital Signs - 24 hr 07/22/24 14:44 07/22/24 18:07 Temperature 97.1 F 97.1 F Pulse Rate 116 H 116 H Respiratory Rate 20 20 Blood Pressure 170/92 H 170/92 H Pulse Oximetry 98 98 Oxygen Delivery Method Room Air Room Air BMI result Body Mass Index 37.3 Const General: cooperative, comfortable and no acute distress Orientation/consciousness: patient oriented x3 Limitations: no limitations HENMT Head: Yes normal to inspection, Yes normocephalic and Yes atraumatic Ears: hearing grossly normal bilaterally General nose exam: Normal external nose present Face and sinus: Yes normal facial exam Mouth: Normal oral and palatal mucosa present, oropharynx normal and moist mucou s membranes Throat: Yes posterior oropharynx normal Eyes General: appearance normal, both eyes and all related structures Eyelids: Yes eyelids normal Conjunctivae: conjunctivae normal Sclerae: sclerae normal Pupils: Equal, round and reactive pupils present EOM: EOMs intact bilaterally Neck Neck: Yes normal visual inspection, Yes full ROM and Yes no lymphadenopathy Lymphatic: no lymphadenopathy noted Chest Chest palpation & inspection: normal inspection of the chest Resp Effort & Inspection: normal respiratory effort and able to speak in complete sentences Cardio Rate: regular rate Rhythm: regular rhythm Heart sounds: S1 normal heart sound present and S2 normal heart sound present GI Inspection: Yes normal to inspection Skin Other: R IJ christensen port noted to right side of chest with no surrounding erythema, fluctuance or ecchymosis. There is blood noted in the lumen as well as dried blood around incision site. No drainage. General skin exam: no rashes or lesions noted Trauma: no lacerations or abrasions Wounds: no wounds Neuro General: patient oriented x3 and moves all extremities Cranial nerves: Yes Equal, round and reactive pupils present Extrem General: Yes normal to inspection Right upper extremity: normal to inspection Left upper extremity: normal to inspection Right lower extremity: normal to inspection Left lower extremity: normal to inspection Medical Decision Making Medical Decision Making MDM Narrative: This is a 69-year-old female who presents emergency department with concerns for Christensen port malfunction. Patient reports that she is feeling well. She has no chest pain, shortness for breath. She is mildly tachycardic at 116 however appears to be anxious, speaking quickly. VNA was concerned given blood in lumen. I contacted LISET Lantigua from Interventional [facility]iology who came and assess patient. He was able to remove the dressing, and flushed out the Christensen port and does not appear to be malfunctioning. Sai wild reports that this is working adequately, and patient should call Interventional Radiology if she ever has issues with the port. Only advised to return if she has excessive bleeding coming out of the report. Patient understands and agrees with plan. Patient stable for discharge. Differential Diagnosis Differential Diagnoses: The differential diagnosis associated with the presentation includes Malfunctioning, blockage, cellulitis, wound infection Consult Healthcare Provider Management of the patient was discussed with: Personal Care Worker Sai Wild PA-C Discharge Plan Discharge Clinical Impression: Christensen catheter dysfunction Qualifiers: Encounter type: initial encounter Qualified Code(s): T82.514A - Breakdown (mechanical) of infusion catheter, initial encounter Patient Disposition: Home, Self-Care Additional Instructions: Your christensen IJ line was checked by Sai Wild PA-C and successfully flushed and lidia back on your line without complications. If you have any complications with this in the future, please contact the Interventional Radiology office as they can better assist you rather than going to the emergency room. If you develop any new or worsening symptoms including but not limited to severe chest pain or shortness of breath, please seek emergent care Prescriptions: No Action alprazolam 0.5 mg tablet 0.75 mg PO BEDTIME bupropion HCl 150 mg tablet extended release 24 hr 150 mg PO DAILY albuterol sulfate [Ventolin HFA] 90 mcg/actuation Hfa Aerosol Inhaler 2 puff INHALATION Q6H PRN (Reason: Shortness Of Breath Or Wheezing) desvenlafaxine succinate 50 mg tablet extended release 24 hr 50 mg PO DAILY daptomycin 500 mg recon soln 900 mg IV Q24H Rx Instructions: administer over 30 mins acetaminophen [Tylenol Arthritis Pain] 650 mg tablet extended release 650 mg PO Q8H PRN (Reason: pain) Qty: 90 3RF metoprolol succinate 50 mg tablet extended release 24 hr 50 mg PO DAILY aspirin 81 mg tablet,delayed release (DR/EC) 81 mg PO DAILY cholecalciferol (vitamin D3) 50 mcg (2,000 unit) capsule 50 mcg PO DAILY alprazolam 0.5 mg tablet 0.5 - 1 mg PO DAILY PRN (Reason: Anxiety) insulin glargine [Lantus Solostar U-100 Insulin] 100 unit/mL (3 mL) insulin pen 40 unit subcut BEDTIME insulin lispro [Humalog KwikPen Insulin] 100 unit/mL insulin pen 30 sliding scale dose subcut TID Protocol: Insulin Correction Scale Less than or equal to 110 ---- Give (units): 0 111 to 150 Give (units): 0 151 to 200 Give (units): 2 201 to 250 Give (units): 4 251 to 300 Give (units): 6 301 to 350 Give (units): 8 Greater than 350 Give (units): 10 Call MD if Blood Glucose > : 350 meclizine 12.5 mg tablet 12.5 mg PO BID PRN (Reason: Dizziness) spironolactone 25 mg tablet 25 mg PO DAILY biotin 1 mg capsule 1 mg PO DAILY Dulcolax (magnesium hydroxide) 600 mg tablet,chewable PO spironolactone 25 mg tablet 25 mg PO DAILY Referrals: Sai Wild PA [Physician Ventilation Worker] - Interventions: ED Discharge Assessment Last Done: 07/22/24 18:07 Discharge Date/Time: 07/22/24 18:13 Print Language: Ethiopian
[2024-07-22 18:07] VITALS: BP 170/92; PULSE 116; RESP 20; TEMP 36.2; O2SAT 98
--- OUTSIDE RECORDS SUMMARY | 2024-07-23 22:02 | XMS_ITS | Data Portability ---
Author Organization [facility], Main Office Address [address], [address] [place] [address] Care Team Providers Care Land Acquisition Analyst Name Role Phone CAREONE (NONO UNIT) OTHER [...] are transferring her to the CCU at [facility].;;;;; Transthoracic echo 08/10 showed sinus rhythm with [...] see note) for follow-up on sutures at [phone], left voicemail.; Will need outpatient follow up with Eric Schaeffer for follow up and suture removal / Dr Barahona renal; (09/25/22) cr 2.1 egfr 25, calci 9.4; (09/21/22) cr 2.4; (09/18/22) cr 2.5; ckd; microalbuminuria ;; (09/11) cr 1.6; (09/08/22) cr 1.4 egfr 42;;;; JAMES on CKD CKD IIIb-IV (Bl Cr 1.6-1.8- renal following prior to OR most likely [facility];;; [facility] reportsAt discharge her BUN and creatinine [...] 08/12/2022; 08/01 she had an MRI at [facility] which showed soft tissue ulceration and cellulitis at the distal aspect of the third toe with acute osteomyelitis within the adjacent third distal phalanx.Dr. Del Angel who arranged for 3rd toe amputation given the nonhealing wound and suspicion for osteomyelitis of the distal phalanx. 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 Management plan discussed with the BRAND MANAGER student personally. glord Not available 10/12/2022 10:08:10 [...] are transferring her to the CCU at [facility].;;;;; Transthoracic echo 08/10 showed sinus rhythm with [...] see note) for follow-up on sutures at [phone], left voicemail.; Will need outpatient follow up [...] 08/12/2022; 08/01 she had an MRI at [facility] which showed soft tissue ulceration and cellulitis at the distal aspect of the third toe with acute osteomyelitis within the adjacent third distal phalanx.Dr. Del Angel who arranged for 3rd toe amputation given the nonhealing wound and suspicion for osteomyelitis of the distal phalanx. 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; Antimicrobials: ceftriaxone 2 grams daily; Planned Duration: 6 weeks; Start Date: 08/15/22 & End Date: 09/25/22; Labs: While on IV antimicrobials please follow at least weekly:; [X ] CBC with diff, BUN, creatinine; [X] AST, ALT, T bili ################### ## [email or web address] Not available 10/14/2022 10:10:19 Plan of Treatment [...] Address Organization Details Recorded Time Osteomyelit is 16058413 Active [address], [address], [place], [address], [facility] 3 08:15:12 Diabetes mellitus 45172518 Active [address], [address], [place], [address], [facility] [employer] 3 08:15:19 Essential hypertensio n 28815853 Active [address], [address], [place], [address], [employer] 3 08:15:22 History of deep vein thrombosis 796859346 Active [address], [address], [place], [address], [facility] [employer] 3 08:15:28 Chronic kidney disease 705572308 Active [address], [address], [place], [address], [facility] 3 08:15:35 Unsteady when walking 30102881 Active [address], [address], [place], [address], [facility] 3 08:15:43 Acute heart failure 61684678 Active [address], [address], [place], [address], [facility] 3 08:24:30 Endocarditi s 24727121 Active [address], [address], [place], [address], [facility] 3 10:03:40 Peripheral vascular disease 519646246 Active [address], [address], [place], [address], [facility] 3 10:03:52 Hammer toe 657544480 Active [address], [address], [place], [address], [facility] 3 10:04:24 Severe obesity 3533181217636 4 Active [address], [address], [place], [address], [facility] 3 10:04:35 Gastrointes tinal hemorrhage 05011687 Active [address], [address], [place], [address], [facility] 3 10:15:35 Dental caries 32210950 Active [address], [address], [place], [address], [facility] 3 10:16:14 Retention of urine 649144378 Active [address], [address], [place], [address], [facility] 3 10:16:50 Insomnia 944780731 Active [address], [address], [place], [address], [facility] [employer] 3 10:22:29 Anxiety 99017863 Active [address], [address], [place], [address], [facility] 3 10:23:38 Obstructive sleep apnea syndrome 22838330 Active 2022 [facility] [employer] 3 09:59:26 Problem Notes None recorded. Medical Equipment None Reported. Allergies Allergen ID Allergen Name Allergen Category Reaction Reaction Severity Criticality Documentation Date Start Date Code Code System Note Provider Name and Address Organization Details Recorded Time 08976 ethanol food,medi cation Not available Not available Not available 09/09/2022 448 RxNorm GANESH [address], [address], [place], [address], [facility] [employer] 3 08:25:06 23340 ethanol environme nt,medica tion Not available Not available Not available 09/09/2022 [address], [address], [place], [address], [facility] 3 08:25:20 25412 amlodipin e medicatio n Not available Not available Not available 09/09/2022 34542 RxNorm GANESH [address], [address], [place], [address], [facility] [employer] 3 08:25:26 52564 Levemir medicatio n Not available Not available Not available 09/09/2022 03792 0 RxNorm GANESH [address], [address], [place], [address], [facility] [employer] 3 08:25:30 07509 Substance with sulfonami de structure and antibacte rial mechanism of action (substanc e) medicatio n Not available Not available Not available 09/09/2022 17136 8003 SNOMED GANESH [address], [address], [place], [address], [facility] 3 08:25:37 Medications Name Sig Start Date Stop Date Status Note LastModified by Organization Details LastModified Time Xanax 0.5 mg tablet Take 1 tablet 3 times a day by oral route. 023 active Not Available Not Available Not Avai lable Vitals Date Recorded Body height Provider Name an d Address Organization Details Last Updated DateTime 10/06/2022 175.26 cm Jayy Curran MD [address] , [facility] [address], [place], [address], [facility] 10/07/2022 09:21:46 Date Recorded Body height Heart rate Body temperature Respiratory rate Oxygen saturation Oxygen saturation in Arterial blood by Pulse oximetry Systolic blood pressure Diastolic blood pressure Provider Name and Address Organization Details Last Updated DateTime 175.26 cm 94 /min 97.1 [degF] 18 /min 97 % 97 % 122 mm[Hg] 74 mm[Hg] GANESH [facility] , [address], [place], [address], [facility] 3 09:11:46 Date Recorded Body height Body temperature Provider N greg and Address Organization Details Last Updated DateTime 10/13/2022 175.26 cm 97.1 [degF] Jayy Curran MD [address] , [address], [place], [address], [facility] 10/14/2022 09:42:35 Date Recorded Body height Body temperature Heart rate Systolic blood pressure Diastolic blood pressure Provider Name and Address Organization Details Last Updated DateTime 10/17/2022 175.26 cm 97.1 [degF] 81 /min 131 mm[Hg] 72 mm[Hg] GANESH LORD [address] , [address], [place], [address], [facility] 3 12:37:34 Date Recorded Body height Heart rate Body temperature Respiratory rate Oxygen saturation Oxygen saturation in Arterial blood by Pulse oximetry Systolic blood pressure Diastolic blood pressure Provider Name and Address Organization Details Last Updated DateTime 3 175.26 cm 83 /min 97.8 [degF] 18 /min 94 % 94 % 136 mm[Hg] 82 mm[Hg] GANESH LORD [address] [facility], [address], [place], [address], [facility] 3 10:54:40 Social History Question Answer Notes LastModified by Organizat ion Details LastModified Time Tobacco Smoking Status Never Smoker [facility] [address], [place], [address], [facility] 09/09/2022 08:26:50 Do You Have An Advance Directive? No Information not available 09/09/2022 What Is Your Level Of Alcohol Consumption? None Information not available 09/09/2022 What Is Your Code Status? Full Code Information not available 09/09/2022 Do You Have A Medical Power Of Sanipractic Physician? No Information not available 09/09/2022 Do You [...] 0 0 Immunizations Vaccine Type Date Status Note Provider Nam e and Address Organization Details Recorded Time SARS-COV-2 (COVID-19) vaccine, UNSPECIFIED 2 [facility] 09/08/2022 15:49:51 SARS-COV-2 (COVID-19) vaccine, UNSPECIFIED 1 completed Kellie tripathi [facility] 09/08/2022 15:50:00 SARS-COV-2 (COVID-19) vaccine, UNSPECIFIED 1 completed Kellie Robertson null, [facility] 09/08/2022 15:50:07 SARS-COV-2 (COVID-19) vaccine, UNSPECIFIED 1 completed Kellie Robertson null, [facility] 09/08/2022 15:50:17 Td(adult) unspecified formulation 2 completed Kellie Robertson [facility] 09/08/2022 15:50:37 Td(adult) unspecified formulation 7 completed Kellie Robertson null, [facility] 09/08/2022 15:51:06 Tdap 1 completed [facility] 09/08/2022 15:51:32 influenza, unspecified formulation 1 completed [facility] 09/08/2022 15:51:53 influenza, unspecified formulation 0 completed Kellie Robertson [facility] 09/08/2022 15:52:01 influenza, unspecified formulation 0 completed Kellie Robertson [facility] 09/08/2022 15:52:10 pneumococcal polysaccharide PPV23 1 completed [facility] 09/08/2022 15:52:51 pneumococcal polysaccharide PPV23 4 completed Kellie Robertson [facility] 09/08/2022 15:53:07 zoster live 6 completed Kellie Robertson null, [facility] 09/08/2022 15:53:28 Influenza, adjuvanted, quadrivalent, PF 3 completed Radha Vizcaino [facility] 09/18/2023 11:46:51 Influenza, adjuvanted, quadrivalent, PF 3 completed Radha Vizcaino [facility] 10/22/2023 10:35:51 Past Encounters Encounter ID Performer Location Encounter Start Date Encounter Closed Date Diagnosis/Indication Diagnosis SNOMED-CT Code Diagnosis ICD10 Code [id number] GANESH Sheriff [facility] [address] [facility] [place] [address] 09/09/2022 08:13:20 09/11/2022 10:54:50 Osteomyelitis 20452931 M86.9 Chronic ki dney disease 631528515 N18.9 Acute heart failure 5667 5007 I50.9 Diabetes mellitus 997710 09 E11.9 Essential hypertension 00745355 I10 Gastrointe stinal hemorrhage 33397500 K92.2 Dental caries 44656069 K 02.9 Retention of urine 19531 4002 R33.9 Insomnia 295209032 G47.0 9 Anxiety 83851227 F41.9 [id number] MD Amina Escobedorenae at [facility] on [address] [place] [id number] 09/11/2022 11:15:07 09/13/2022 11:03:16 Bacterial endocarditis 073390349 I33.0 History of mitral valve replacement 8502414344 109 Z95.2 History of aortic valve replacement 8368589269 100 Z95.4 Diabetic foot ulcer 3710 95779 E13.621 Essential hypertension 97371680 I10 History of deep vein thrombosis 021118948 Z86.718 Cardiac pa cemaker in situ 573401972 Z95.0 Type 2 jaren betes mellitus 26380340 E11.21 Anticoagulant therapy 18 5611983 Z79.01 Anemia 966645104 D64.9 Dental caries 68209178 K 02.9 Chronic ki dney disease 736239972 N18.9 Retention of urine 16401 4002 R33.9 Osteomyelitis 08906600 M 86.9 Peripheral neuropathy due to type 2 diabetes mellitus 2132035478 107 E11.42 Medication monitoring 39 5385700 Z51.81 [id number] GANESH Sheriff [facility] on [address] [place] [id number] 09/18/2022 09:42:21 09/20/2022 09:43:33 Osteomyelitis 20286621 M86.9 Chronic ki dney disease 681833920 N18.9 Diabetes mellitus 259520 09 E11.9 Dental caries 73049979 K 02.9 Retention of urine 82334 4002 R33.9 [id number] GANESH Sheriff [facility] on [address] [place] [id number] 09/19/2022 09:14:37 09/21/2022 10:40:20 Retention of urine 658978814 R33.9 Nausea and vomiting 1693 1999 R11.2 [id number] GANESH Sheriff [facility] on [address] [place], [place] [address] 09/20/2022 09:05:37 09/22/2022 11:07:29 Retention of urine 959147328 R33.9 GANESH Sheriff [facility] on [address] [place], [place] [address] 09/21/2022 09:09:52 09/25/2022 12:28:56 Retention of urine 782850764 R33.9 [id number] GANESH Sheriff [facility] on [address] [place] [address] 2 09/25/2022 09:28:17 09/27/2022 08:19:42 Anxiety 86812987 F41.9 Retention of urine 55003 4002 R33.9 [id number] [facility] [address] [place], [place] [address] 09/27/2022 11:07:18 10/02/2022 14:50:56 Retention of urine 608855310 R33.9 Osteomyelitis 39292550 M 86.9 Dental caries 82432104 K 02.9 [id number] Jayy Curran MD [facility] at [facility] on [address] [place], [place] [address] 10/02/2022 11:36:38 10/04/2022 08:12:23 Bacterial endocarditis 251214251 I33.0 History of mitral valve replacement 3077635341 109 Z95.2 History of aortic valve replacement 5742216728 100 Z95.4 Osteomyelitis 21528932 M 86.9 Essential hypertension 63426164 I10 Peripheral vascular disease 421123785 I73.9 History of deep vein thrombosis 422481529 Z86.718 Cardiac pa cemaker in situ 289190461 Z95.0 Type 2 jaren betes mellitus 97846361 E11.21 Anticoagulant therapy 18 5623387 Z79.01 Anemia 189842493 D64.9 Chronic ki dney disease stage 4 680384454 N18.4 Retention of urine 47757 4002 R33.9 Peripheral neuropathy due to type 2 diabetes mellitus 2050927445 107 E11.42 Medication monitoring 39 5383502 Z51.81 Vertigo 707217089 R42 [id number] [facility] [address] [place] [id number] 10/06/2022 14:24:07 10/09/2022 11:23:24 Vertigo 828969859 R42 [id number] [facility] [address] [place] [id number] 10/12/2022 09:11:19 10/16/2022 13:25:54 Vertigo 387213717 R42 Obstructiv e sleep apnea syndrome 13676766 G47.33 [id number] Jayy Curran MD [facility] on [address] [place] [id number] 10/13/2022 13:27:30 10/16/2022 13:32:35 Bacterial endocarditis 814144106 I33.0 Chronic ki dney disease 766562885 N18.9 Vertigo 002533590 R42 Type 2 jaren betes mellitus 11852292 E11.21 Anticoagulant therapy 18 1123760 Z79.01 Anemia 239566074 D64.9 Retention of urine 49768 4002 R33.9 Medication monitoring 39 2252664 Z51.81 [id number] [facility] [address] [place] [id number] 10/17/2022 12:36:24 10/18/2022 16:30:15 Chronic kidney disease 031792129 N18.9 Acute heart failure 5667 5007 I50.9 Essential hypertension 92243635 I10 [id number] LINNEA LIU NP [facility] on [address] [place] [id number] 10/23/2022 10:53:35 11/03/2022 13:34:51 Chronic kidney disease 736831918 N18.9 Acute heart failure 5667 5007 I50.9 Essential hypertension 95164564 I10 Vertigo 947111400 R42 Obstructiv e sleep apnea syndrome 87581235 G47.33 Bacterial endocarditis 788456741 I33.0 History of mitral valve replacement 3421942553 109 Z95.2 History of aortic valve replacement 5380390011 100 Z95.4 Osteomyelitis 40814729 M 86.9 Peripheral vascular disease 446128683 I73.9 History of deep vein thrombosis 855802240 Z86.718 Type 2 jaren betes mellitus 69162170 E11.21 Anemia 576965459 D64.9 Retention of urine 22564 4002 R33.9 Health Concerns Section Related Observation LastModified by Organization Detai ls LastModified Time None Recorded Concern Status LastModified by Organization Details LastModified Time None Recorded Advance Directives Directive N: Payers Encounter Date Sequence Insurance Name Policy Number Policy Carney Covered Member ID Carney Member ID Guarantor Name 10/06/2022 2 [place] Linnea Odin [id number] Linnea Odin 10/06/2022 1 [place] Linnea Odin [id number] Linnea Odin 10/12/2022 2 [place] Linnea Odin [id number] Linnea Odin 10/12/2022 1 [place] Linnea Karen [id number] Linnea Odin 10/13/2022 2 [place] Linnea Odin [id number] Linnea Odin 10/13/2022 1 [place] Linnea Odin [id number] Linnea Odin 10/17/2022 2 [place] Linnea Odin [id number] Linnea Odin 10/17/2022 1 [place] Linnea Odin [id number] Linnea Odin 10/23/2022 2 [place] Linnea Karen [id number] Linnea Odin 10/23/2022 1 [place] Linnea Karen [id number] Linnea Odin Notes Date Note Type Note Provider Name [...] urology outpatientpolyneuropat hy; Jayy Curran MD [address] [facility], [address], [place], [address], [facility] 10/07/2022 09:29:18 10/12/2022 text/html This is [...] til seen by urology. GANESH LARA [address] [facility], [address], [place], [address], [facility] 10/12/2022 10:08:19 10/13/2022 text/html 67 yo [...] mass.dm2;non occlusive dvt;warfarinanemia Jayy Curran MD [address] [facility], [address], [place], [address], [facility] [employer] 10/14/2022 10:15:08 10/17/2022 text/html This is a [...] for change.dm2;non occlusive dvt;warfarinanemia GANESH LARA [address] [facility], [address], [place], [address], [facility] [employer] 10/17/2022 12:39:28 10/23/2022 text/html This is a [...] coming.dm2;non occlusive dvt;warfarinanemia LINNEA LIU NP [address] [facility], [address], [place], [address], [facility] 11/07/2022 12:07:03 OBGyn Episode No OBEpisode recorded.
== END 2024-07-22 18:13 | disposition home or self-care (01) ==
PROVIDERS: Emergency Provider Emergency Medicine; PCP Family Medicine
DX: T82.514A Breakdown (mechanical) of infusion catheter, initial encounter (principal); Y84.8 Other medical procedures as the cause of abnormal reaction of the patient, or of later complication, without mention of misadventure at the time of the procedure; Y92.9 Unspecified place or not applicable
CPT/HCPCS: 99282

== ENCOUNTER 2024-08-15 09:30 | Outpatient (REF) | payer MEDICARE, MEDICAID, SELFPAY ==
--- NOTE | ~2024-08-15 | IR_ITS ---
[place] removal Patient presents with a tunneled central line. Patient no longer requires IV antibiotics. Referring physician requests removal. The right chest wall suture was cut, and the catheter was removed entirely from the right chest wall. Pressure was held until hemostasis was assured. A dry dressing was applied. IR/IR cvc remove any age Impression: [place] removal. This procedure was performed by Sai Wild PA-C and supervised by Dr. Roque Electronically signed by: Rinku Roque MD 08/29/2024 02:18 PM NIRANJAN RAHMAN
--- OUTSIDE RECORDS SUMMARY | 2024-08-15 10:07 | XMS_ITS | Data Portability ---
Author Organization [facility], Main Office Address [address], [address] [place] [address] Care Team Providers Care Glaze Carrier Name Role Phone CAREONE (NONO UNIT) OTHER [...] are transferring her to the CCU at [facility].;;;;; Transthoracic echo 08/10 showed sinus rhythm [...] see note) for follow-up on sutures at [phone], left voicemail.; Will need outpatient follow up with Eric Schaeffer for follow up and suture removal / Dr Barahona renal; (09/25/22) cr 2.1 egfr 25, calci 9.4; (09/21/22) cr 2.4; (09/18/22) cr 2.5; ckd; microalbuminuria ;; (09/11) cr 1.6; (09/08/22) cr 1.4 egfr 42;;;; JAMES on CKD CKD IIIb-IV (Bl Cr 1.6-1.8- renal following prior to OR most likely [facility];;; [facility] reportsAt discharge her BUN and creatinine are [...] 08/12/2022; 08/01 [place] [facility] [place] showed soft tissue ulceration and cellulitis at the distal aspect of the third toe with acute osteomyelitis within the adjacent third distal phalanx.Dr. Del Angel who arranged for 3rd toe amputation given the nonhealing wound and suspicion for osteomyelitis of the distal phalanx. 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 Management plan discussed with the EDGER SAW OPERATOR student personally. glord Not available 10/12/2022 10:08:10 [...] are transferring her to the CCU at [facility].;;;;; Transthoracic echo 08/10 showed sinus rhythm [...] see note) for follow-up on sutures at [phone], left voicemail.; Will need outpatient follow up [...] 08/12/2022; 08/01 she had an [place] [facility] [place] showed soft tissue ulceration and cellulitis at the distal aspect of the third toe with acute osteomyelitis within the adjacent third distal phalanx.Dr. Del Angel who arranged for 3rd toe amputation given the nonhealing wound and suspicion for osteomyelitis of the distal phalanx. 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 3 08:15:12 Diabetes mellitus 00450948 Active [address], [address], [place], [address], [facility] 3 08:15:19 Essential hypertensio n 54156291 Active [address], [address], [place], [address], [employer] [facility] 3 08:15:22 History of deep vein thrombosis 635274703 Active [address], [address], [place], [address], [facility] [employer] 3 08:15:28 Chronic kidney disease 339471526 Active [address], [address], [place], [address], [facility] 3 08:15:35 Unsteady when walking 05406588 Active [address], [address], [place], [address], [facility] 3 08:15:43 Acute heart failure 75258504 Active [address], [address], [place], [address], [facility] 3 08:24:30 Endocarditi s 90534537 Active [address], [address], [place], [address], [facility] 3 10:03:40 Peripheral vascular disease 778878152 Active [address], [address], [place], [address], [facility] 3 10:03:52 Hammer toe 990736661 Active [address], [address], [place], [address], [facility] 3 10:04:24 Severe obesity 8779849897708 4 Active [address], [address], [place], [address], [facility] 3 10:04:35 Gastrointes tinal hemorrhage 42482410 Active [address], [address], [place], [address], [facility] 3 10:15:35 Dental caries 78230018 Active [address], [address], [place], [address], [facility] 3 10:16:14 Retention of urine 113527121 Active [address], [address], [place], [address], [facility] 3 10:16:50 Insomnia 817756659 Active 2022 GANESH LARA [address], [address], [place], [address], [facility] [employer] [facility] 3 10:22:29 Anxiety 21119136 Active 2022 GANESH LARA [address], [address], [place], [address], [facility] 3 10:23:38 Obstructive sleep apnea syndrome 36947667 Active 2022 Apolinar Rainey [facility] 3 09:59:26 Problem Notes None recorded. Medical Equipment None Reported. Allergies Allergen ID Allergen Name Allergen Category Reaction Reaction Severity Criticality Documentation Date Start Date Code Code System Note Provider Name and Address Organization Details Recorded Time [id number] 2824e ethanol food,medi cation Not available Not available Not available 09/09/2022 448 RxNorm Not Available Not Available Not Available [id number] 232897295 [id number] 2824e ethanol environme nt,medica tion Not available Not available Not available 09/09/2022 448 RxNorm Not Available Not Available Not Available [id number] 227157988 [id number] 2824e amlodipin e medicatio n Not available Not available Not available 09/09/2022 88536 RxNorm Not Available Not Available Not Available [id number] 722791641 [id number] 2824e Levemir medicatio n Not available Not available Not available 09/09/2022 62485 0 RxNorm Not Available Not Available Not Available [id number] 932868076 [id number] 2824e Substance with sulfonami de structure and antibacte rial mechanism of action (substanc e) medicatio n Not available Not available Not available 09/09/2022 96254 8003 SNOMED Not Available Not Available Not Available Medications Name Sig Start Date Stop Date Status Note LastModified by Organization Details LastModified Time Xanax 0.5 mg tablet Take 1 tablet 3 times a day by oral route. 023 active Not Available Not Available Not Avai lable Vitals Date Recorded Body height Provider Name an d Address Organization Details Last Updated DateTime 10/06/2022 175.26 cm Jayy Curran MD [address], [address], [place], [address], [facility] 10/07/2022 09:21:46 Date Recorded Body height Heart rate Body temperature Respiratory rate Oxygen saturation Oxygen saturation in Arterial blood by Pulse oximetry Systolic blood pressure Diastolic blood pressure Provider Name and Address Organization Details Last Updated DateTime 3 175.26 cm 94 /min 97.1 [degF] 18 /min 97 % 97 % 122 mm[Hg] 74 mm[Hg] GANESH LARA [address], [address], [place], [address], [facility] 3 09:11:46 Date Recorded Body height Body temperature Provider N greg and Address Organization Details Last Updated DateTime 10/13/2022 175.26 cm 97.1 [degF] Jayy Curran MD [address] [facility] [address], [address], [place], [address], [facility] 10/14/2022 09:42:35 Date Recorded Body height Body temperature Heart rate Systolic blood pressure Diastolic blood pressure Provider Name and Address Organization Details Last Updated DateTime 10/17/2022 175.26 cm 97.1 [degF] 81 /min 131 mm[Hg] 72 mm[Hg] GANESH LARA [address] [place] [address], [address], [place], [address], [facility] 3 12:37:34 Date Recorded Body height Heart rate Body temperature Respiratory rate Oxygen saturation Oxygen saturation in Arterial blood by Pulse oximetry Systolic blood pressure Diastolic blood pressure Provider Name and Address Organization Details Last Updated DateTime 3 175.26 cm 83 /min 97.8 [degF] 18 /min 94 % 94 % 136 mm[Hg] 82 mm[Hg] GANESH LARA [address], [address], [place], [address], [facility] 3 10:54:40 Social History Question Answer Notes LastModified by Organizat ion Details LastModified Time Tobacco Smoking Status Never Smoker GANESH LARA [address] [place] [address], [address], [place], [address], [facility] 09/09/2022 08:26:50 Do You Have An Advance Directive? No Information not available 09/09/2022 What Is Your Level Of Alcohol Consumption? None Information not available 09/09/2022 What Is Your Code Status? Full Code Information not available 09/09/2022 Do You Have A Medical Power Of Portable Trackman? No Information not available 09/09/2022 Do You [...] SARS-COV-2 (COVID-19) vaccine, UNSPECIFIED 2 completed Kellie Robertson [facility] 09/08/2022 15:49:51 SARS-COV-2 (COVID-19) vaccine, UNSPECIFIED 1 completed Kellie Robertson [facility] 09/08/2022 15:50:00 SARS-COV-2 (COVID-19) vaccine, UNSPECIFIED 1 completed Kellie Robertson [facility] 09/08/2022 15:50:07 SARS-COV-2 (COVID-19) vaccine, UNSPECIFIED 1 completed Kellie Robertson [facility] 09/08/2022 15:50:17 Td(adult) unspecified formulation 2 completed Kellie Robertson [facility] 09/08/2022 15:50:37 Td(adult) unspecified formulation 7 completed Kellie Robertson null, [facility] 09/08/2022 15:51:06 Tdap 1 completed Kellie Robertson null, [facility] 09/08/2022 15:51:32 influenza, unspecified formulation 1 [facility] 15:51:53 influenza, unspecified formulation 0 completed [facility]22 15:52:01 influenza, unspecified formulation 0 completed [facility] 09/08/2022 15:52:10 pneumococcal polysaccharide PPV23 1 completed [facility] 09/08/2022 15:52:51 pneumococcal polysaccharide PPV23 4 completed [facility] 09/08/2022 15:53:07 zoster live 6 completed [facility] 09/08/2022 15:53:28 Influenza, adjuvanted, quadrivalent, PF 3 [facility] 11:46:51 Influenza, adjuvanted, quadrivalent, PF 3 completed Radha Vizcaino [facility] 10/22/2023 10:35:51 Past Encounters Encounter ID Performer Location Encounter Start Date Encounter Closed Date Diagnosis/Indication Diagnosis SNOMED-CT Code Diagnosis ICD10 Code [id number] GANESH Huynhrenae [facility] on [address] [place] [address] 09/09/2022 08:13:20 09/11/2022 10:54:50 Osteomyelitis 90747509 M86.9 Chronic ki dney disease 029281339 N18.9 Acute heart failure 5667 5007 I50.9 Diabetes mellitus 562957 09 E11.9 Essential hypertension 38115838 I10 Gastrointe stinal hemorrhage 41821603 K92.2 Dental caries 80278273 K 02.9 Retention of urine 59328 4002 R33.9 Insomnia 782234554 G47.0 9 Anxiety 37274423 F41.9 [id number] [facility] on [address] [place] [address] 09/11/2022 11:15:07 09/13/2022 11:03:16 Bacterial endocarditis 173730969 I33.0 History of mitral valve replacement 9409629179 109 Z95.2 History of aortic valve replacement 2440647314 100 Z95.4 Diabetic foot ulcer 3710 24906 E13.621 Essential hypertension 04866253 I10 History of deep vein thrombosis 607474246 Z86.718 Cardiac pa cemaker in situ 307561896 Z95.0 Type 2 jaren betes mellitus 77610170 E11.21 Anticoagulant therapy 18 4470134 Z79.01 Anemia 878311828 D64.9 Dental caries 21914300 K 02.9 Chronic ki dney disease 512624004 N18.9 Retention of urine 10290 4002 R33.9 Osteomyelitis 82851067 M 86.9 Peripheral neuropathy due to type 2 diabetes mellitus 2949102312 107 E11.42 Medication monitoring 39 3753080 Z51.81 [id number] GANESH Sheriff [facility] on [address] [place] [address] 09/18/2022 09:42:21 09/20/2022 09:43:33 Osteomyelitis 36311402 M86.9 Chronic ki dney disease 764905269 N18.9 Diabetes mellitus 604524 09 E11.9 Dental caries 61707620 K 02.9 Retention of urine 05449 4002 R33.9 [id number] GANESH Sheriff [facility] on [address] [place] [address] 09/19/2022 09:14:37 09/21/2022 10:40:20 Retention of urine 159892058 R33.9 Nausea and vomiting 1693 1999 R11.2 [id number] GANESH Sheriff [facility] on [address] [place] [address] 09/20/2022 09:05:37 09/22/2022 11:07:29 Retention of urine 337209011 R33.9 GANESH Sheriff [facility] on [address] [place] [address], [place] [address] 09/21/2022 09:09:52 09/25/2022 12:28:56 Retention of urine 253947632 R33.9 [id number] GANESH Sheriff at [facility] on [address] [place] [address], [place] [address] 09/25/2022 09:28:17 09/27/2022 08:19:42 Anxiety 56417407 F41.9 Retention of urine 72473 4002 R33.9 [id number] GANESH Sheriff [facility] on [address] [place] [address], [place] [address] 09/27/2022 11:07:18 10/02/2022 14:50:56 Retention of urine 954536477 R33.9 Osteomyelitis 25347086 M 86.9 Dental caries 11409347 K 02.9 [id number] [facility] [address] [place] [address] 10/02/2022 11:36:38 10/04/2022 08:12:23 Bacterial endocarditis 521326685 I33.0 History of mitral valve replacement 2703965648 109 Z95.2 History of aortic valve replacement 2699869887 100 Z95.4 Osteomyelitis 25023422 M 86.9 Essential hypertension 80608749 I10 Peripheral vascular disease 074477909 I73.9 History of deep vein thrombosis 361401223 Z86.718 Cardiac pa cemaker in situ 295472383 Z95.0 Type 2 jaren betes mellitus 21616196 E11.21 Anticoagulant therapy 18 4945641 Z79.01 Anemia 081933180 D64.9 Chronic ki dney disease stage 4 207743485 N18.4 Retention of urine 63920 4002 R33.9 Peripheral neuropathy due to type 2 diabetes mellitus 6191823749 107 E11.42 Medication monitoring 39 4132091 Z51.81 Vertigo 797523973 R42 [id number] [facility] [address] [place] [address], [place] [address] 10/06/2022 14:24:07 10/09/2022 11:23:24 Vertigo 161506889 R42 [id number] [facility] [address] [place] [address] 10/12/2022 09:11:19 10/16/2022 13:25:54 Vertigo 147758081 R42 Obstructiv e sleep apnea syndrome 46586813 G47.33 [id number] Jayy Curran MD [facility] on [address] [place] [address] 10/13/2022 13:27:30 10/16/2022 13:32:35 Bacterial endocarditis 994800379 I33.0 Chronic ki dney disease 134356414 N18.9 Vertigo 163203121 R42 Type 2 jaren betes mellitus 17957149 E11.21 Anticoagulant therapy 18 4707871 Z79.01 Anemia 408674477 D64.9 Retention of urine 70328 4002 R33.9 Medication monitoring 39 0264413 Z51.81 [id number] GANESH LARA [facility] on [address] [place] [id number] 10/17/2022 12:36:24 10/18/2022 16:30:15 Chronic kidney disease 231746652 N18.9 Acute heart failure 5667 5007 I50.9 Essential hypertension 23988770 I10 [id number] LINNEA LIU NP [facility] on [address] [place] [address] 10/23/2022 10:53:35 11/03/2022 13:34:51 Chronic kidney disease 159327000 N18.9 Acute heart failure 5667 5007 I50.9 Essential hypertension 19026291 I10 Vertigo 756747302 R42 Obstructiv e sleep apnea syndrome 79438977 G47.33 Bacterial endocarditis 974629406 I33.0 History of mitral valve replacement 9020633697 109 Z95.2 History of aortic valve replacement 8989341561 100 Z95.4 Osteomyelitis 63303604 M 86.9 Peripheral vascular disease 712605141 I73.9 History of deep vein thrombosis 152446894 Z86.718 Type 2 jaren betes mellitus 91446332 E11.21 Anemia 320983325 D64.9 Retention of urine 01032 4002 R33.9 Health Concerns Section Related Observation LastModified by Organization Detai ls LastModified Time None Recorded Concern Status LastModified by Organization Details LastModified Time None Recorded Advance Directives Directive N: Payers Encounter Date Sequence Insurance Name Policy Number Policy Carney Covered Member ID Carney Member ID Guarantor Name 10/06/2022 2 [place] Linnea Karen [id number] [place]nea [place] 10/06/2022 1 [place] [employer] Linnea Karen [id number] [place]nea [place] 10/12/2022 2 [place] Linnea Karen [id number] [place]nea [place] 10/12/2022 1 [place] [employer] Linnea Karen [id number] Linnea [place] 10/13/2022 2 [place] [id number] [place]nea [place] 10/13/2022 1 [place]nea [place] [id number] Linnea Karen 10/17/2022 2 [place] Linnea Karen [id number] [place]nea [place] 10/17/2022 1 [place] [employer] [place] [id number] Linnea Karen 10/23/2022 2 [place] [id number] [place]nea [place] 10/23/2022 1 [place] [employer] Linnea [place] [id number] Linnea [place] Notes Date Note Type Note Provider Name [...] urology outpatientpolyneuropat hy; Jayy Curran MD [address] [facility] [address], [address], [place], [address], [facility] 10/07/2022 09:29:18 10/12/2022 text/html This is [...] stay in til seen by urology. GANESH [address], [address], [place], [address], [facility] 10/12/2022 10:08:19 10/13/2022 text/html 67 yo woman [...] mass.dm2;non occlusive dvt;warfarinanemia Jayy Curran MD [address] [facility] [address], [address], [place], [address], [facility] 10/14/2022 10:15:08 10/17/2022 text/html This is a [...] for change.dm2;non occlusive dvt;warfarinanemia GANESH LARA [address], [address], [place], [address], [facility] 10/17/2022 12:39:28 10/23/2022 text/html This is a [...] coming.dm2;non occlusive dvt;warfarinanemia LINNEA LIU NP [address] [facility] [address], [address], [place], [address], [facility] 11/07/2022 12:07:03 OBGyn Episode No OBEpisode recorded.
== END 2024-08-15 09:31 | disposition home or self-care (01) ==
LOC: HO.XRAY 09:30
PROVIDERS: PCP Family Medicine; Visit Provider Internal Medicine
DX: Z13.89 Encounter for screening for other disorder (principal)

== ENCOUNTER 2024-10-17 13:30 | Outpatient (RCR) | payer MEDICARE, SELFPAY | END 2025-01-29 12:16 | disposition home or self-care (01) | LOC: HO.WCC 13:30 | PROVIDERS: PCP Family Medicine; Visit Provider Surgery | DX: E11.621 Type 2 diabetes mellitus with foot ulcer (principal); L97.512 Non-pressure chronic ulcer of other part of right foot with fat layer exposed; Z79.4 Long term (current) use of insulin; Z79.2 Long term (current) use of antibiotics; Z79.899 Other long term (current) drug therapy; Z89.422 Acquired absence of other left toe(s) | CPT/HCPCS: 11042; 99212 ==